=== PATIENT | male | born 1950 | race Caucasian/White ===

== ENCOUNTER 2025-02-01 12:40 | Emergency (ER) | payer MEDICARE, OTHER, SELFPAY ==
[2025-02-01] VITALS (7 sets, daily range): BP systolic 114–141; BP diastolic 81–93; PULSE 75–96; RESP 16–19; TEMP 36.8; O2SAT 97–99; BMI 27.5
--- NOTE | 2025-02-01 12:55 | EKG12_ITS ---
Test Reason : AFIB Blood Pressure : */* mmHG Vent. Rate : 91 BPM Atrial Rate : * BPM P-R Int : * ms QRS Dur : 74 ms QT Int : 324 ms P-R-T Axes : * 0 18 degrees QTcB Int : 398 ms Atrial fibrillation Low voltage QRS Abnormal ECG Confirmed by NORIS AYALA, PELON ([id number]), copy editor ANEL HANEY ([id number]) on 02/02/2025 1:07:56 PM Referred By: BB Confirmed By: PELON HAMM MD
--- NOTE | 2025-02-01 13:15 | RAD_ITS ---
PROCEDURE: CHEST PA AND LATERAL 02/01/2025 REASON FOR EXAM: CHEST PAIN TECHNIQUE: CHEST PA AND LATERAL COMPARISON: Chest x-ray 02/01/2025. FINDINGS: Hardware: Monitor electrodes overlie the chest. Heart: No cardiomegaly. Tortuosity and atherosclerotic calcifications of the aorta. Mediastinum: Unremarkable. Lungs: Clear. No pleural effusion or pneumothorax. Bones: No acute bony abnormalities. RAD/Chest PA and Lateral IMPRESSION: No acute cardiopulmonary abnormalities. Reading Location: [id number]
[2025-02-01] MEDS: 0.9% Normal Saline (1000mL) 1,000 ML 999 ML IV (13:17)
[2025-02-01 13:44] LABS: Hematocrit 39.9 % (40-54); Hemoglobin 13.2 g/dL (13.0-16.5); Immature Granulocytes Count 0.030 X10^3/uL (0.0-0.0); Mean Corp Hgb Conc 33.1 g/dL (32-36); Mean Corpuscular Volume 89.9 fL (80-94); Mean Platelet Vol. 9.6 fl (6.2-12.0); NRBC Flagged by Analyzer 0 % (0-5); Platelet Count 209 K/mm3 (150-450); RBC Distribution Width CV 13.6 % (11.6-14.6); RBC Distribution Width SD 44.8 fl (35.1-43.9); Red Blood Count 4.44 M/mm3 (4.6-6.2); White Blood Count 7.8 K/mm3 (4.4-11.0)
--- NOTE | 2025-02-01 13:48 | ED.VIS.CHEST ---
HPI History of Present Illness Chief Complaint: Palpitations Narrative Narrative: Patient is a 74-year-old male past medical history hypertension, Alzheimer's dementia who presents to the emergency department concern for atrial fibrillation. According to the significant other bedside she notes that yesterday his watch notified him that he had a episode of atrial fibrillation twice and notes that this happened again today. She notes that his heart rate went to max 140 beats per minutes. Patient states that he has not any complaints or symptoms at this point time. She states that he recently went to a music camp in [place] and notes that a few individuals came down with COVID at that. She notes that they took few breaks along the way to admission back. They did not deny any history of blood clots. [facility] Medical History Alzheimer dementia HTN (hypertension) Home Medications ?Medication ?Instructions ?Recorded ?Last Taken ?Type apixaban 5 mg tablet (Eliquis) 5 mg PO BID #60 tabs 02/01/25 Unknown Rx metoprolol tartrate 25 mg tablet 25 mg PO BID #60 tabs 02/01/25 Unknown Rx Allergy/AdvReac Type Severity Reaction Status Date / Time No Known Allergies Allergy Verified 02/01/25 13:17 Social History Smoking Status: Never smoker ROS ROS ED ROS Narrative Constitutional: Denies any fevers or chills Eyes: Denies double vision Cardiovascular: No chest pain or palpitations Respiratory: Denies coughing wheezing shortness of breath Abdomen: Denies abdominal pain nausea vomit diarrhea : Denies urinary symptoms Neurological: Denies any numbness, weakness, tingling Musculoskeletal: Denies back pain Skin: Denies any rashes or lesions EXAM Physical Exam Narrative Exam Narrative: General: Patient lying in bed resting comfortably does not appear to be in acute distress Head: Atraumatic, normocephalic Eyes: PERRL bilaterally, EOMI bilaterally, no conjunctival injection noted Neck: Soft and supple, trachea midline Cardiovascular: Patient has any irregular irregular rhythm with a regular rate Respiratory: Clear to auscultation bilaterally Abdomen: No tenderness to palpation Extremities: +5/5 strength noted in the bilateral upper and lower extremities, radial pulses +2/4 in bilateral extremities Neurological: Patient follow commands knew that he was at [facility] years 2024 Skin: Warm, dry, intact no rashes or lesions noted Const Vital Signs: 02/01/25 12:43 02/01/25 13:10 02/01/25 13:58 Temperature 98.2 F Temperature Source Oral Pulse Rate 96 83 Respiratory Rate 16 19 H Blood Pressure 118/81 H 114/88 H Blood Pressure Mean 93 96 Pulse Ox 98 99 Oxygen Delivery Method Room Air Room Air Room Air 02/01/25 14:00 02/01/25 15:00 02/01/25 16:00 Temperature Temperature Source Pulse Rate 77 75 86 Respiratory Rate 16 16 17 Blood Pressure 133/93 H 119/87 H Blood Pressure Mean 106 97 Pulse Ox 97 99 99 Oxygen Delivery Method 02/01/25 17:00 Temperature Temperature Source Pulse Rate 96 Respiratory Rate 18 Blood Pressure 129/89 H Blood Pressure Mean 102 Pulse Ox 98 Oxygen Delivery Method Room Air MDM MDM MDM Narrative Medical decision making narrative: Patient is a 74-year-old male who presented to the emergency department chief complaint of atrial fibrillation. On the differential diagnosis includes but not limited to atrial flutter, atrial fibrillation, electrolyte normality, PE, ACS. Once workup is obtained reviewed he will be reevaluated Patient CBC reviewed showed no evidence leukocytosis white blood count was noted to be 7.8, hemoglobin was 13.2, platelet count was 209. Patient INR 0.9, PT of 12.8. Patient sodium is 139, potassium normal at 4.8, creatinine was noted to be 1.23. Patient glucose of 114, troponin was 17 and 16 respectively. Patient's EKG reviewed showed atrial fibrillation with controlled rate of 91 bpm. Patient TSH normal at 1.82, free T4 and T3 normal at 1.10 and 2.5 respectively. Patient D-dimer normal at 0.27. Patient's chest x-ray reviewed showed no acute cardiopulmonary processes. This reviewed by myself by radiology. Did discuss case with on-call oracle database manager Dr. Espinoza who states that the patient can be placed on 25 mg of metoprolol twice a day and be placed on Eliquis and follow-up in the outpatient setting. I discussed this plan with the patient and significant other bedside they are agreeable with this plan. They are advised that he falls and hits his head while on this blood thinning medication he needs to go to the nearest emergency department immediately as there is a chance that he can develop a head bleed. With significant other bedside did note that they did some further looking at his [employer] and notes that he has had episodes intermittently throughout the week. I answered all questions at bedside and they like to go at this point in time all question concerns answered they were discharged home in stable condition. They did note that the pharmacy will be closed in [place] and we are currently not doing meds to beds therefore he was given his first dose of Eliquis here in the emergency department as well as the metoprolol and the prescription was sent to the pharmacy. Lab Data Labs: Laboratory Results - last 24 hr 02/01/25 02/01/25 13:05 15:05 WBC 7.8 RBC 4.44 L Hgb 13.2 Hct 39.9 L MCV 89.9 MCH 29.7 MCHC 33.1 RDW Std Deviation 44.8 H RDW Coeff of Danita 13.6 Plt Count 209 MPV 9.6 Immature Gran % (Auto) 0.400 Neut % (Auto) 69.4 Lymph % (Auto) 22.4 Thurston % (Auto) 6.9 Eos % (Auto) 0.5 Baso % (Auto) 0.4 Absolute Neuts (auto) 5.4 Absolute Lymphs (auto) 1.74 Nucleated RBC % 0 PT 12.8 INR 0.9 APTT 25.4 D-Dimer Quant (PE/DVT) 0.27 Sodium 139 Potassium 4.8 Chloride 104 Carbon Dioxide 23.5 Anion Gap 11 BUN 21 H Creatinine 1.23 H Estim Creat Clear Calc 53.58 Est GFR (MDRD) Non-Af 61 BUN/Creatinine Ratio 17.4 Glucose 114 H Calcium 8.8 Magnesium 2.3 H Troponin T High Sens 17 Troponin T Hi Sens 2 Hr 16 NT pro BNP II 452 TSH 1.820 Free T4 1.10 Free T3 pg/dL 2.5 Radiography Diagnostic Testing: Clinical Impression(s) from Imaging Studies Chest X-Ray 02/01/25 13:15 IMPRESSION: No acute cardiopulmonary abnormalities. Reading Location: [facility] Discharge Plan Triage Chief Complaint: Palpitations ED Provider: Omar Carter Dx/Rx/DC Orders Clinical Impression: Atrial fibrillation, Alzheimer's dementia, Hypertension Prescriptions: New metoprolol tartrate 25 mg tablet 25 mg PO BID Qty: 60 0RF Eliquis 5 mg tablet 5 mg PO BID Qty: 60 0RF Primary Care Provider: Anna Teixeira Referrals: Zo Kendall MD [Med Staff - Credit And Collection Manager] - Sandra Espinoza MD [Med Staff - Active Staff] - Activity Restrictions/Additional Instructions: Take prescriptions as prescribed. You are given your first dose here in the emergency department this evening. Return with worsening symptoms or any other concerns. Follow-up your primary care physician and the oracle database manager that you referred to as well. Print Language: Tamazight Disposition Disposition: Home, Self Care
[2025-02-01 13:49] LABS: Anion Gap 11 (5-15); BUN 21 mg/dL (4-19); BUN/Creat Ratio 17.4 RATIO (10-20); Calcium,Total 8.8 mg/dL (7.6-11.0); Carbon Dioxide 23.5 mmol/L (21.0-32.0); Chloride 104 mmol/L (98-108); Estimated Creatinine Clearance 53.58 ml/min (50-250); Free T3 2.5 pg/mL (2.18-3.98); Glucose 114 mg/dL (70-99); Magnesium 2.3 mg/dL (1.5-2.2); Potassium 4.8 mmol/L (3.3-5.1); Pro- Brain NATRIURETIC PEPTIDE 452 pg/mL (<=1800); Troponin T High Sensitivity 17 ng/L (<=22)
--- OUTSIDE RECORDS SUMMARY | 2025-02-01 13:51 | XMS RPT_ITS | CCD ---
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.[employer] TILER, Radha Unavailable Christine Young PA-C Unavailable [phone] OLDER, RADHA Referring Unavailable GANTA, TESSY Primary Care Unavailable GANTA, TESSY Primary Care Unavailable GANTA, TESSY Attending Unavailable OLDER, RADHA Referring Unavailable GANTA, TESSY Primary Care Unavailable GANTA, TESSY Attending Unavailable GANTA, TESSY Primary Care Unavailable GANTA, TESSY Referring Unavailable GANTA, TESSY Primary Care Unavailable GANTA, TESSY Referring Unavailable GANTA, TESSY Primary Care Unavailable GANTA, TESSY Attending Unavailable GANTA, TESSY Primary Care Unavailable GANTA, TESSY Referring Unavailable SELF Referring Unavailable GANTA, TESSY Primary Care Unavailable GANTA, TESSY Attending Unavailable GANTA, TESSY Primary Care Unavailable GANTA, TESSY Referring Unavailable GANTA, TESSY Primary Care Unavailable GANTA, TESSY Referring Unavailable GANTA, TESSY Primary Care Unavailable OLDER, RADHA Referring Unavailable GANTA, TESSY Primary Care Unavailable OLDER, RADHA Attending Unavailable OLDER, RADHA Referring Unavailable GANTA, TESSY Primary Care Unavailable TESSY FIELDS Attending Unavailable [facility] Primary Care Unavailable ABBY DAMON Attending Unavailable TESSY FIELDS [facility]erring [facility] Unavailable Allergies Allergy Classification Reported Allergen(s) Allergy Type Date of Onset Reaction(s) Facility (20 sources) Latex; Translations: [LATEX] Drug Allergy Other: See Comments [facility] Work Phone: (9 sources) Seasonal allergy; Translations: [SEASONAL ALLERGIES] Allergy to substance Cough [facility] Medications Current Medications Medication Drug Class(es) Dates Sig (Normalized) Sig (Original) amLODIPine 5 mg oral tablet (8 sources) Dihydropyridine Calcium Channel Jose Luis Start: 12-24-2024 take 1 tablet by mouth once daily amLODIPine (NORVASC) 5 mg tablet Take 1 tablet by mouth once daily. 90 tablet 3 12/24/2024 Active Start: 10-20-2024 End: 12-22-2024 take 1 tablet by mouth once daily amLODIPine (NORVASC) 5 mg tablet Take 1 tablet by mouth once daily. 30 tablet 1 10/20/2024 12/22/2024 Discontinued Start: 09-26-2024 End: 10-20-2024 take 1 tablet by mouth once daily amLODIPine (NORVASC) 2.5 mg tablet Take 1 tablet by mouth once daily. 30 tablet 1 09/26/2024 10/20/2024 Discontinued amoxicillin 875 mg / clavulanate 125 mg oral tablet (3 sources) Penicillin-class Antibacterial Start: 12-16-2021 End: 12-23-2021 amoxicillin-clavulanic acid (AUGMENTIN) 875-125 mg per tablet Take 1 tablet by mouth twice daily for 7 days. FOR 7 DAYS. 14 tablet 0 12/16/2021 12/23/2021 Active Comment on above: Take 1 tablet by mouth twice daily for 7 days. FOR 7 DAYS. cephalexin 500 mg oral capsule (2 sources) Cephalosporin Antibacterial Start: 12-07-2021 End: 12-12-2021 take 1 capsule by mouth twice daily cephALEXin (KEFLEX) 500 mg capsule Indications: Onycholysis , Paronychia of great toe of left foot Take 1 capsule by mouth twice daily for 5 days. 10 capsule 0 12/07/2021 12/12/2021 Active Comment on above: Take 1 capsule by mouth twice daily for 5 days. lecithin 1200 mg oral capsule (20 sources) take 1 capsule by mouth once daily Lecithin 1,200 mg cap Take 1,200 mg by mouth once daily. Active losartan potassium 50 mg oral tablet (19 sources) Angiotensin 2 Receptor Jose Luis Start: 09-26-2024 End: 09-26-2024 take 1 tablet by mouth once daily losartan (COZAAR) 50 mg tablet Take 1 tablet by mouth once daily. 90 tablet 3 09/26/2024 Active Start: 07-24-2024 End: 09-26-2024 take 1 tablet by mouth once daily losartan (COZAAR) 100 mg tablet Indications: hypertension Take 1 tablet by mouth once daily. 90 tablet 3 07/31/2024 09/26/2024 Discontinued Start: 04-17-2024 End: 07-24-2024 take 1 tablet by mouth twice daily losartan (COZAAR) 25 mg tablet Indications: Essential hypertension Take 1 tablet by mouth two times a day. 60 tablet 3 04/17/2024 07/24/2024 Discontinued nirmatrelvir tablet 300 mg (150 mg x 2) and ritonavir tablet 100 mg in a dose pack (PAXLOVID) (3 sources) Start: 07-25-2023 End: 07-25-2023 nirmatrelvir tablet 300 mg ( 150 mg x 2) and ritonavir tablet 100 mg in a dose pack (PAXLOVID) Indications: Positive self-administered antigen test for COVID-19 Administer TWO pink nirmatrelvir 150 mg tablets and ONE white ritonavir 100 mg tablet for a total of three tablets twice daily. 30 tablet 0 07/25/2023 07/25/2023 Discontinued Start: 07-25-2023 End: 07-30-2023 nirmatrelvir tablet 300 mg ( 150 mg x 2) and ritonavir tablet 100 mg in a dose pack (PAXLOVID) Indications: Positive self-administered antigen test for COVID-19 Administer TWO pink nirmatrelvir 150 mg tablets and ONE white ritonavir 100 mg tablet for a total of three tablets twice daily. 30 tablet 0 07/25/2023 07/30/2023 Active Comment on above: Administer TWO pink nirmatrelvir 150 mg tablets and ONE white ritonavir 100 mg tablet for a total of three tablets twice daily. perflutren lipid microspheres 1.3 mL in NaCl (PF) 0.9% 10 mL injection (DEFINITY) (6 sources) Start: 11-15-2022 End: 02-14-2024 perflutren lipid microspheres 1.3 mL in NaCl (PF) 0.9% 10 mL injection (DEFINITY) 125 ml sodium chloride 9 mg/ml prefilled syringe (6 sources) Start: 11-15-2022 End: 02-14-2024 sodium chloride 0.9 % (flush) 10 mL (BD POSIFLUSH) Completed/Discontinued Medications Medication Drug Class(es) Dates Sig (Normalized) Sig (Original) carbamide peroxide 65 mg/ml otic solution (14 sources) Start: 07-20-2021 End: 11-15-2022 carbamide peroxide (DEBROX) 6.5 % otic solution Indications: Excessive ear wax, bilateral Use 5 Drops in both ears twice daily. 15 mL 1 07/20/2021 11/15/2022 Discontinued Comment on above: Use 5 Drops in both ears twice daily. mv-min/folic/K1/ly copen/lutein (CENTRUM SILVER MEN ORAL) (13 sources) End: 10-20-2024 mv-min/folic/K1/lyco pen/lutein (CENTRUM SILVER MEN ORAL) Take by mouth once daily. 10/20/2024 Discontinued mv-min/folic/K1/ lycopen/lutein (CENTRUM SILVER MEN ORAL) Take by mouth once daily. Active mv-min/folic/K1/ lycopen/lutein (CENTRUM SILVER MEN ORAL) Take by mouth. Active niacin 500 mg oral tablet (20 sources) Nicotinic Acid Start: 07-21-2010 End: 07-24-2024 take 1 tablet by mouth once daily niacin 500 mg ORAL tablet Take one(1) tablet daily. 0 07/21/2010 07/24/2024 Discontinued Comment on above: Take one(1) tablet d aily. rosuvastatin calcium 10 mg oral tablet (20 sources) HMG-CoA Reductase Inhibitor Start: 07-20-2021 End: 11-20-2024 take 1 tablet by mouth once daily rosuvastatin (CRESTOR) 10 mg tablet Take 1 tablet by mouth once daily. 90 tablet 3 07/24/2024 11/20/2024 Discontinued Comment on above: Take 1 tablet by regina th once daily. TAKE 1 TABLET BY REGINA TH EVERY DAY Problems Active Problems Problem Classification Problem Date Documented Da te Episodic/Chronic Cardiac dysrhythmias (3 sources) Palpitations; Translations: [Palpitations] Episodic Conditions associated with dizziness or vertigo (1 source) Lightheadedness; Translations: [Dizziness and giddiness] 08-31-2023 Episodic Deficiency and other anemia (20 sources) Anemia; Translations: [Anemia, unspecified] 07-21-2010 Episodic Delirium, dementia, and amnestic and other cognitive disorders (8 sources) Dementia; Translations: [Unspecified dementia without behavioral disturbance] Onset: 11-20-2024 08-31-2023 Chronic Disorders of lipid metabolism (20 sources) Mixed hyperlipidemia; Translations: [Mixed hyperlipidemia] Onset: 07-21-2010 07-21-2010 Chronic Essential hypertension (20 sources) Benign essential hypertension; Translations: [Essential (primary) hypertension] Onset: 07-21-2010 07-21-2010 Chronic Fluid and electrolyte disorders (8 sources) Hyperkalemia; Translations: [Hyperkalemia] Onset: 12-10-2024 07-24-2024 Episodic Malaise and fatigue (1 source) Fatigue; Translations: [Other fatigue] Episodic Open wounds of extremities (1 source) Open wound of toe; Translations: [Unspecified open wound of unspecified toe(s) without damage to nail, initial encounter] Episodic Other hereditary and degenerative nervous system conditions (3 sources) Impaired cognition; Translations: [Mild cognitive impairment, so stated] 03-19-2024 Chronic Other hereditary and degenerative nervous system conditions (1 source) Mild cognitive impairment, so stated; Translations: [Cognitive impairment, mild, so stated] Onset: 03-19-2024 Chronic Other inflammatory condition of skin (20 sources) Seborrheic dermatitis; Translations: [Seborrheic dermatitis, unspecified] 07-21-2010 Episodic Other nutritional; endocrine; and metabolic disorders (1 source) Weight decreased; Translations: [Abnormal weight loss] 11-20-2024 Episodic Other nutritional; endocrine; and metabolic disorders (1 source) Abnormal weight loss; Translations: [Weight loss] Onset: 11-20-2024 Episodic Other screening for suspected conditions (not mental disorders or infectious disease) (2 sources) Patient encounter status; Translations: [Encounter for screening for malignant neoplasm of prostate] Episodic Other skin disorders (1 source) Onycholysis; Translations: [Onycholysis] Episodic Other skin disorders (3 sources) Ingrowing toenail; Translations: [Ingrowing nail] Episodic Residual codes; unclassified (1 source) Family history of prostate cancer; Translations: [Family history of malignant neoplasm of prostate] Episodic Residual codes; unclassified (5 sources) Memory impairment; Translations: [Other amnesia] Episodic Skin and subcutaneous tissue infections (1 source) Paronychia of toe of left foot; Translations: [Cellulitis of left toe] Episodic Unclassified (2 sources) 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 Author Type: Occupational Therapist Type: [id number] Filed: 01/23/2025 07:53 Note Text: [facility] Occupational Therapy Plan of Care Certification Patient Name: Zain Vences : 1950 CC #: [id number] Date: 01/14/2025 To: Tessy Fields MD From Therapist: Abby Damon OT/David RE: Patient Certification/ Recertification Your review, approval and electronic signature are required in order to comply with Payor: MEDICARE / Plan: MEDICARE A AND B / Product Type: Medicare / regulations. 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 Due to the complex nature of the safe operation of a motor vehicle, and considering the demands of integrating changing environmental conditions, and visual, cognitive, and physical skills, successful completion of this program is not a guarantee of safe driving in the future. ASSESSMENT OF INSTRUMENTAL ADL AND COMMUNITY MOBILITY: Zain Vences presents with the diagnosis of moderate late onset Alzheimer's dementia. This patient presents with impairments of 'S CONCERNS RELATED TO DRIVING BEHAVIOR, SEVERE IMPAIRMENT WITH SHORT BLESSED COGNITIVE SCREEN WHILE DECREASED ORIENTATION/CONCENTRAT ION/RECALL MEMORY, DECREASED AUDITORY ATTENTION SKILLS, SIGNIFICANTLY SLOWED PERFORMANCE ON TRAILMAKING B FOR ALTERNATING ATTENTION SKILLS, SLOWED AVERAGE VISUAL PROCESSING SPEED ON VISUAL PERCEPTUAL SCREENING, CONCERNS RELATED TO PROBLEM SOLVING/JUDGEMENT/SAFE TY AWARENESS/INSIGHT, SLIGHTLY SLOWED AVERAGE SIMULATED BRAKE REACTION DISTANCE. RECOMMENDATIONS: ADL/IADL Recommendations: ongoing support and assist from , family, friends as has been provided; do recommend that he be with other responsible person when in public due to his vulnerability related to his cognitive deficits which his is in agreement with Driving Recommendations: REFRAIN FROM DRIVING WITH DRIVING CESSATION INDICATED AND DISCUSSED; THIS THERAPIST WILL PROVIDE PHYSICIAN WITH THE [facility] REPORTING INFORMATION SO THAT THE LICENSE SUSPENSION PROCESS CAN BE INITIATED Recommended Complete Eye Exam: Yes Planned Interventions, Frequency, and Duration: Current Frequency: Discontinue Therapy Services Duration: 1 visit Total Number of Visits Planned: 0 Patient demonstrates fair understanding of results which were discussed and agreed upon by patient/family. For further details regarding this patient refer to the Occupational Therapy electronically documented visit dated 01/14/2025. Provider Attestation I have reviewed the treatment plan for Zain Vences, CCF# [id number] for the period of 01/14/25 -- 01/30/25, established on 01/14/2025. Signature certifies the need for therapy services. 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 - losartan (COZAAR) 50 mg tablet Take 1 tablet by mouth once daily. - Lecithin 1,200 mg cap Take 1,200 mg by mouth once daily. Letter Text Normal [facility] Basic metabolic 2000 panelon 12-11-2024 Anion gap [Moles/Vol] 10 mmol/L 8 - 15 mmol/L [facility] Calcium [Mass/Vol] 9.3 mg/dL 8.5 - 10. 2 mg/dL [facility] Chloride [Moles/Vol] 104 mmol/L 98 - 10 7 mmol/L [facility] CO2 [Moles/Vol] 26 mmol/L 22 - 30 mmol/L [facility] Creatinine [Mass/Vol] 0.93 mg/dL 0.73 - 1.22 mg/dL [facility] GFR/1.73 sq M.predicted among non-blacks MDRD (S/P/Bld) [Vol rate/Area] 86 mL/min/{1.73_m2} - PINF [facility] Comment on above: Estimated Glomerular Filtration Rate (eGFR) is calculated using the 2020 CKD-EPI creatinine equation. This equation utilizes serum creatinine, sex, and age as parameters. The creatinine assay has traceable calibration to isotope dilution-mass spectrometry. Refer to KDIGO guidelines for clinical interpretation. In patients with unstable renal function, e.g. those with acute kidney injury, the eGFR may not accurately reflect actual GFR. Glucose [Mass/Vol] 84 mg/dL 74 - 99 mg/dL [facility] Comment on above: The [place] Diabete s Association (ADA) provides guidance for cutoff values for fasting glucose and random glucose. The ADA defines fasting as no caloric intake for at least 8 hours. Fasting plasma glucose results between 100 to 125 mg/dL indicate increased risk for diabetes (prediabetes). Fasting plasma glucose results greater than or equal to 126 mg/dL meet the criteria for diagnosis of diabetes. In the absence of unequivocal hyperglycemia, results should be confirmed by repeat testing. In a patient with classic symptoms of hyperglycemia or hyperglycemic crisis, random plasma glucose results greater than or equal to 200 mg/dL meet the criteria for diagnosis of diabetes. Reference: Standards of Medical Care in Diabetes 2016, [place] [employer] Association. Diabetes Care. 2016.39(Suppl 1). Interpretation and review of laboratory results Normal [facility] Potassium [Moles/Vol] 4.9 mmol/L 3.7 - 5.1 mmol/L [facility] Sodium [Moles/Vol] 140 mmol/L 136 - 144 mmol/L [facility] Urea nitrogen [Mass/Vol] 15 mg/dL 9 - 24 mg/dL [facility] Basic metabolic 2000 panelon 12-10-2024 Anion gap [Moles/Vol] 10 mmol/L Normal 8-15 [facility] Comment on above: Order Comment: Speci men Type: BLOOD SPECIMENOrdering Facility: [facility] Address: [address] [place] [address] Performed By: #### 2 4321-2 ####[facility] LABCLIA [id number] [place] [address] [place] Calcium [Mass/Vol] 9.3 mg/dL Normal 8.5-10.2 [facility] Comment on above: Order Comment: Speci men Type: BLOOD SPECIMENOrdering Facility: [facility] Address: [address] [place] [address] Performed By: #### 2 4321-2 ####[facility] LABCLIA [id number] [place] [id number] [place] Chloride [Moles/Vol] 104 mmol/L Normal 98-107 [facility] Comment on above: Order Comment: Speci men Type: BLOOD SPECIMENOrdering Facility: [facility] Address: [address] [place] [address] Performed By: #### 2 4321-2 ####[facility] LABCLIA [id number] [place] [address] [place] CO2 [Moles/Vol] 26 mmol/L Normal 22-30 [facility] Comment on above: Order Comment: Speci men Type: BLOOD SPECIMENOrdering Facility: [facility] Address: [address] [place] [address] Performed By: #### 2 4321-2 ####[facility] LABCL[facility] [id number] [place] [id number] [place] Creatinine [Mass/Vol] 0.93 mg/dL Normal 0.73-1.22 [facility] Comment on above: Order Comment: Speci men Type: BLOOD SPECIMENOrdering Facility: [facility] Address: [address] [place] [address] Performed By: #### 2 4321-2 ####[facility] LABCL[facility] [id number] [place] [id number] [place] Creatinine and Glomerular filtration rate.predicted panel (S/P/Bld) 86 mL/min/1.73m??? Normal >=60 [facility] Comment on above: Order Comment: Speci men Type: BLOOD SPECIMENOrdering Facility: [facility] Address: [address] [place] [address] Result Comment: Mary mated Glomerular Filtration Rate (eGFR) is calculated using the 2020 CKD-EPI creatinine equation. This equation utilizes serum creatinine, sex, and age as parameters. The creatinine assay has traceable calibration to isotope dilution-mass spectrometry. Refer to KDIGO guidelines for clinical interpretation. In patients with unstable renal function, e.g. those with acute kidney injury, the eGFR may not accurately reflect actual GFR. Performed By: #### 2 4321-2 ####[facility] [id number] [address] [address] [place] Glucose [Mass/Vol] 84 mg/dL Normal 74-99 [facility] Comment on above: Order Comment: Speci tyrell Type: BLOOD SPECIMENOrdering Facility: [facility] Address: [address] [place] [address] Result Comment: The [place] Diabetes Association (ADA) provides guidance for cutoff values for fasting glucose and random glucose. The ADA defines fasting as no caloric intake for at least 8 hours. Fasting plasma glucose results between 100 to 125 mg/dL indicate increased risk for diabetes (prediabetes). Fasting plasma glucose results greater than or equal to 126 mg/dL meet the criteria for diagnosis of diabetes. In the absence of unequivocal hyperglycemia, results should be confirmed by repeat testing. In a patient with classic symptoms of hyperglycemia or hyperglycemic crisis, random plasma glucose results greater than or equal to 200 mg/dL meet the criteria for diagnosis of diabetes. Reference: Standards of Medical Care in Diabetes 2016, [place] Diabetes Association. Diabetes Care. 2016.39(Suppl 1). Performed By: #### 2 4321-2 ####[facility]CL[facility] [id number] [address] [address] [place] Potassium [Moles/Vol] 4.9 mmol/L Normal 3.7-5.1 [facility] Comment on above: Order Comment: Arielle santillan Type: BLOOD SPECIMENOrdering Facility: [facility] Address: [address] [place] [address] Performed By: #### 2 4321-2 ####[facility] LABCLIA [id number] [facility] [address] [address] [place] Sodium [Moles/Vol] 140 mmol/L Normal 136-144 [facility] Comment on above: Order Comment: Speci men Type: BLOOD SPECIMENOrdering Facility: [facility] Address: [address] [place] [address] Performed By: #### 2 4321-2 ####[facility] LABIA [id number] [address] [place] Urea nitrogen [Mass/Vol] 15 mg/dL Normal 9-24 [facility] Comment on above: Order Comment: Speci men Type: BLOOD SPECIMENOrdering Facility: [facility] Address: [address] [place] [address] Performed By: #### 2 4321-2 ####[facility] [id number] [address] [facility] CNOVon 11-20-2024 CNOV Office Visit (SHAWNIWR ) ZAIN VENCES ([id number]) 1950 M Date Time Provider Department 11/20/24 11:00 AM TESSY FIELDS During your visit today, we recorded the following information about you: Pulse Respiration Blood pressure Weight 52/minute 16/minute 120/84 84.5 kg Tessy Fields MD 11/20/2024 11:52 AM Signed We discussed your dementia: - Your MOCA score today was 15/30, which is slightly lower than your previous score of 17/30. This indicates progression of your dementia. - You do not have Alzheimer's disease, but you do have dementia. This distinction does not change your current treatment or management plan. - Continue following a diet that supports brain health if it is helpful for you, but do not feel restricted if it is not improving your quality of life. Enjoy the foods you like, including chocolate in moderation. - We discussed your driving. To ensure safety, I recommend a driving evaluation at [place] or another center that offers this service. If you pass, it will confirm that it is safe for you to continue driving. We discussed your potassium levels and blood pressure: - Your potassium level remains slightly above normal, but this is not a significant concern at this time. You have historically had higher potassium levels, and this is likely normal for you. - Your blood pressure is well-controlled at 120/84 with your current medications. Continue taking your medications as prescribed. - I performed an EKG today to monitor for any changes related to your potassium levels. If there are any concerns, I will contact you. - Please continue to drink more water throughout the day to stay hydrated, as this is important for your overall health. We discussed your medications: - You are currently taking Norvasc (amlodipine) and losartan for blood pressure management. Continue these as prescribed. - You are no longer taking Crestor (rosuvastatin). I have removed this from your medication list. - You are managing your medications well with the weekly pillbox system. Continue this routine. We discussed your weight: - You have intentionally lost weight, going from 194 lbs to 186 lbs. This is a healthy weight, and I recommend maintaining your current weight without further loss. We discussed your overall health and activities: - You have not experienced any falls, chest pain, shortness of breath, or swelling in your legs. Continue your current level of activity, including gardening and light exercise. - You are managing daily tasks well, including laundry and pie bottomer. Continue these activities as they are beneficial for your independence and well-being. Follow-up: - Complete the driving evaluation as discussed. - I will review your EKG results and contact you if there are any concerns. - Please continue monitoring your blood pressure and potassium levels as we have been doing. Let me know if you have any new concerns or questions. Tessy Fields MD 11/20/2024 5:07 PM Signed Reason for Visit Follow up HPI Zain Vences is a 74-year-old male with a history of dementia, hyperkalemia, and hypertension, accompanied by his , presenting for follow-up. Zain's reports a decline in his MoCA score from 17 to 15. He denies having Alzheimer's disease, attributing his cognitive issues to dementia. He continues to drive regularly without significant incidents, though his expresses concerns about his safety. He remains active, engaging in music and gardening, and performs household tasks such as laundry and cleaning. 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 His handles finances and medication management. He has been taking losartan and amlodipine for hypertension, with stable readings around 120/84 mmHg. Despite dietary adjustments to reduce potassium intake, his hyperkalemia persists. He denies chest pain, dyspnea, or leg swelling during exercise. He has lost weight intentionally through dietary changes, including apple cider vinegar, and denies incontinence, recent falls, or accidents. He reports no changes in vision, hearing, or behavior, and denies anger or upset feelings. He experiences occasional muscle pain from exercise, which has improved. Social History Tobacco Use Smoking status: Never Smokeless tobacco: Never Substance Use Topics Alcohol use: Not Currently Comment: Once every once in a while Drug use: No Past medical history, appointments, medications, allergies reviewed. Pertinent Lab/Diagnostic Studies are reviewed and discussed today Current Outpatient Medications: amLODIPine (NORVASC) 5 mg tablet losartan (COZAAR) 50 mg tablet Lecithin 1,200 mg cap Health Maintenance Depression Screening Anxiety Screening Hepatitis C Screening Pneumococcal Vaccine: 50+(2 of 2 - PCV) DTaP,Tdap,Td Vacci (more content not included)... Normal [facility] ECG COMPLETEon 11-20-2024 ECG COMPLETE Ventricular Rate : 5 2 BPM Atrial Rate : 52 BPM P-R Interval : 198 ms QRS Duration : 86 ms Q-T Interval : 424 ms QTC Calculation(Bazett) : 394 ms Calculated P [place] : 18 degrees Calculated R [place] : -11 degrees Calculated T [place] : 20 degrees Suspect electrode reversal: V2 V3 ; interpretation assumes no reversal SINUS BRADYCARDIA LOW VOLTAGE QRS, CONSIDER PULMONARY DISEASE, PERICARDIAL EFFUSION, OR NORMAL VARIANT CANNOT EXCLUDE ANTERIOR MYOCARDIAL INFARCTION , AGE UNDETERMINED ABNORMAL ECG Confirmed by MD ANGEL, QAKIRA ([id number]) on 11/24/2024 11:02:04 AM NAME : ZAIN VENCES PID : [id number] : 1950 Gender : Male Race : ORD : [id number] Procedure Date : Nov 20 2024 12:03:25 Edit Date : Nov 24 2024 11:02:08 Diagnosis: Suspect electrode reversal: V2 V3 ; interpretation assumes no reversal SINUS BRADYCARDIA LOW VOLTAGE QRS, CONSIDER PULMONARY DISEASE, PERICARDIAL EFFUSION, OR NORMAL VARIANT CANNOT EXCLUDE ANTERIOR MYOCARDIAL INFARCTION , AGE UNDETERMINED ABNORMAL ECG Confirmed by MD ORTIZ QARAB ([id number]) on 11/24/2024 11:02:04 AM Test Reason : E87.5 Hyperkalemia Location : 185 : [facility] Overread By : MD ORTIZ QARAB Edited By : MD ORTIZ QARAB Referred By : , Acquired by : Alistair Gamino [facility] Basic metabolic 2000 panelon 11-18-2024 Anion gap [Moles/Vol] 12 mmol/L Normal 8-15 [facility] Comment on above: Order Comment: Speci men Type: BLOOD SPECIMENOrdering Facility: [facility] Address: [address] [place] [address] Performed By: #### 2 4321-2 ####[facility] [id number] [place] [address] [place] Calcium [Mass/Vol] 9.6 mg/dL Normal 8.5-10.2 [facility] Comment on above: Order Comment: Speci men Type: BLOOD SPECIMENOrdering Facility: [facility] Address: [address] [place] [address] Performed By: #### 2 4321-2 ####[facility] [id number] [place] [address] [place] Chloride [Moles/Vol] 104 mmol/L Normal 98-107 [facility] Comment on above: Order Comment: Speci men Type: BLOOD SPECIMENOrdering Facility: [facility] Address: [address] [place] [address] Performed By: #### 2 4321-2 ####[facility] [id number] [place] [address] [place] CO2 [Moles/Vol] 24 mmol/L Normal 22-30 [facility] Comment on above: Order Comment: Speci men Type: BLOOD SPECIMENOrdering Facility: [facility] Address: [address] [place] [address] Performed By: #### 2 4321-2 ####[facility] [id number] [place] [address] [place] Creatinine [Mass/Vol] 0.93 mg/dL Normal 0.73-1.22 [facility] Comment on above: Order Comment: Speci men Type: BLOOD SPECIMENOrdering Facility: [facility] Address: [address] [place] [address] Performed By: #### 2 4321-2 ####[facility] [id number] [place] [address] [place] Creatinine and Glomerular filtration rate.predicted panel (S/P/Bld) 86 mL/min/1.73m??? Normal >=60 [facility] Comment on above: Order Comment: Speci men Type: BLOOD SPECIMENOrdering Facility: [facility] Address: [address] [place] [address] Result Comment: Mary mated Glomerular Filtration Rate (eGFR) is calculated using the 2020 CKD-EPI creatinine equation. This equation utilizes serum creatinine, sex, and age as parameters. The creatinine assay has traceable calibration to isotope dilution-mass spectrometry. Refer to KDIGO guidelines for clinical interpretation. In patients with unstable renal function, e.g. those with acute kidney injury, the eGFR may not accurately reflect actual GFR. Performed By: #### 2 4321-2 ####[facility] [id number] [place] [address] [place] Glucose [Mass/Vol] 104 mg/dL High 74-99 [facility] Comment on above: Order Comment: Speci men Type: BLOOD SPECIMENOrdering Facility: [facility] Address: [address] [place] [address] Result Comment: The [place] Diabetes Association (ADA) provides guidance for cutoff values for fasting glucose and random glucose. The ADA defines fasting as no caloric intake for at least 8 hours. Fasting plasma glucose results between 100 to 125 mg/dL indicate increased risk for diabetes (prediabetes). Fasting plasma glucose results greater than or equal to 126 mg/dL meet the criteria for diagnosis of diabetes. In the absence of unequivocal hyperglycemia, results should be confirmed by repeat testing. In a patient with classic symptoms of hyperglycemia or hyperglycemic crisis, random plasma glucose results greater than or equal to 200 mg/dL meet the criteria for diagnosis of diabetes. Reference: Standards of Medical Care in Diabetes 2016, [place] Diabetes Association. Diabetes Care. 2016.39(Suppl 1). Performed By: #### 2 4321-2 ####[facility] MILLWNCLIA [id number] [place] [address] [place] Potassium [Moles/Vol] 5.3 mmol/L High 3.7-5.1 [facility] Comment on above: Order Comment: Speci men Type: BLOOD SPECIMENOrdering Facility: [facility] Address: [address] [place] [address] Performed By: #### 2 4321-2 ####[facility] [id number] [place] [address] [place] Sodium [Moles/Vol] 140 mmol/L Normal 136-144 [facility] Comment on above: Order Comment: Serjioi men Type: BLOOD SPECIMENOrdering Facility: [facility] Address: [address] [place] [address] Performed By: #### 2 4321-2 ####[facility] [id number] [place] [address] [place] Urea nitrogen [Mass/Vol] 17 mg/dL Normal 9-24 [facility] Comment on above: Order Comment: Speci men Type: BLOOD SPECIMENOrdering Facility: [facility] Address: [address] [place] [address] Performed By: #### 2 4321-2 ####[facility] [id number] [place] [id number] [place] CNOVon 10-20-2024 CNOV Office Visit (INTMWS ) ZAIN VENCES ([id number]) 1950 M Date Time Provider Department 10/20/24 3:20 PM RADHA MORALES INTRAJANI During your visit today, we recorded the following information about you: Pulse Respiration Blood pressure Weight 57/minute 16/minute 134/78 86.2 kg Radha Morales APRN.[employer]ER 10/20/2024 4:13 PM Signed CC: Patient presents with: Recheck: BP follow up HPI Zain Vences is a 74 year old male who presents today for blood pressure follow up. Recording using [employer] software for draft documentation of the visit was discussed with the patient/authorized territory representative; all questions welcomed and answered. Patient/authorized territory representative agreed to proceed Hypertension: - Currently taking losartan 50 mg and amlodipine 2.5 mg. - Admits to inconsistent adherence to medication regimen. - Typically takes medication at night. - Denies chest pain, headaches, palpitations, edema, or dyspnea. Hyperkalemia: - Recent potassium level: 5.2 mEq/L. Has been improving with holding MVI and dietary changes. - Discontinued multivitamin containing potassium. - Has reduced intake of high-potassium foods. 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 - Reports a healthy diet. REVIEW OF SYSTEMS See HPI PAST MEDICAL HISTORY Diagnosis Date Anemia, unspecified Essential hypertension, benign Internal hemorrhoids without mention of complication Mixed hyperlipidemia Seborrheic dermatitis, unspecified PAST SURGICAL HISTORY Procedure Laterality Date COLONOSCOPY FLX DX W/COLLJ SPEC WHEN PFRMD 09/08/2010 COLONOSCOPY FLX DX W/COLLJ SPEC WHEN PFRMD 10/05/2020 ALLERGIES Latex MEDICATIONS amLODIPine (NORVASC) 5 mg tablet Take 1 tablet by mouth once daily. losartan (COZAAR) 50 mg tablet Take 1 tablet by mouth once daily. rosuvastatin (CRESTOR) 10 mg tablet Take 1 tablet by mouth once daily. Lecithin 1,200 mg cap Take 1,200 mg by mouth once daily. FAMILY HISTORY Problem Relation Age of Onset Breast Cancer Mother Heart disease Mother other (phelbitis) Father other (Pulmonary Embolism) Father other (multiple sclerosis) Sister Prostate Cancer Brother Social History Tobacco Use Smoking status: Never Smokeless tobacco: Never Substance Use Topics Alcohol use: Not Currently Comment: Once every once in a while Drug use: No PHYSICAL EXAM BP 134/78 Pulse (!) 57 Resp 16 Wt 86.2 kg (190 lb) SpO2 96% BMI 27.66 kg/m? General Appearance: well appearing, in no acute distress, alert Eyes: conjunctiva pink and moist, no icterus, sclera white, non-injected Lungs: Lungs clear to auscultation. No wheezing, rhonchi, rales. Heart: RRR without murmur, gallop, or rubs. No ectopy Health maintenance reviewed with patient: Depression Screening Never done Anxiety Screening Never done Hepatitis C Screening Never done Pneumococcal Vaccine: 50+(2 of 2 - PCV) due on 01/20/2016 DTaP,Tdap,Td Vaccine(4 - Td or Tdap) due on 01/15/2019 Advance Directive Discussion due on 06/11/2024 Covid-19 Vaccine( season) due on 08/31/2024 BP Controlled (<130/80) due on 07/23/2025 Annual PCP Team Chronic Disease Visit due on 10/20/2025 Diabetes Screening due on 10/17/2027 Lipid Screening due on 07/23/2029 Colorectal Cancer Screening due on 10/05/2030 Influenza Vaccine Completed RSV Vaccine Completed Shingrix Vaccine Completed DATA REVIEWED: Most recent labs Assessment/Plan 1. Essential hypertension, benign (I10) - Currently on losartan 50 mg and amlodipine 2.5 mg. - Non-adherence to medication regimen noted; medications will be monitored by spouse. - Increased amlodipine to 5 mg daily; prescription for 30 tablets sent to [facility] in [place]. - Decreased losartan to 25 mg daily; instructed to cut the 50 mg tablet in half. to manage - Advised to monitor blood pressure daily, ideally in the morning after using the bathroom and before consuming caffeine or engaging in activities. - Target blood pressure is consistently less than 130/80 mmHg. - Follow-up in 2-4 weeks to assess blood pressure control and medication tolerance. 2. Hyperkalemia (E87.5) - Current potassium level is 5.2 mmol/L (normal range: 3.5-5.1 mmol/L). - Discontinued multivitamin containing potassium. - Discussed that losartan can contribute to elevated potassium levels - Will re-evaluate potassium levels in 2-4 weeks; lab order placed for potassium and kidney function tests. - No dietary changes recommended at this time; continue current diet. - Follow-up appointment scheduled with Dr. Fields in 2-4 weeks to review lab results and adjust treatment as necessary. Prescription instructions reviewed with patient as applicable. Potential red flag symptoms discussed with the patient. Reviewed appropriate action plan to take if red flag symptoms (more content not included)... Normal [facility] Basic metabolic 2000 panelon 10-17-2024 Anion gap [Moles/Vol] 10 mmol/L 8 - 15 mmol/L [facility] Calcium [Mass/Vol] 9.5 mg/dL 8.5 - 10. 2 mg/dL [facility] Chloride [Moles/Vol] 103 mmol/L 98 - 10 7 mmol/L [facility] CO2 [Moles/Vol] 25 mmol/L 22 - 30 mmol/L [facility] Creatinine [Mass/Vol] 0.93 mg/dL 0.73 - 1.22 mg/dL [facility] GFR/1.73 sq M.predicted among non-blacks MDRD (S/P/Bld) [Vol rate/Area] 86 mL/min/{1.73_m2} - PINF [facility] Comment on above: Estimated Glomerular Filtration Rate (eGFR) is calculated using the 2020 CKD-EPI creatinine equation. This equation utilizes serum creatinine, sex, and age as parameters. The creatinine assay has traceable calibration to isotope dilution-mass spectrometry. Refer to KDIGO guidelines for clinical interpretation. In patients with unstable renal function, e.g. those with acute kidney injury, the eGFR may not accurately reflect actual GFR. Glucose [Mass/Vol] 82 mg/dL 74 - 99 mg/dL [facility] Comment on above: The [place] Diabete s Association (ADA) provides guidance for cutoff values for fasting glucose and random glucose. The ADA defines fasting as no caloric intake for at least 8 hours. Fasting plasma glucose results between 100 to 125 mg/dL indicate increased risk for diabetes (prediabetes). Fasting plasma glucose results greater than or equal to 126 mg/dL meet the criteria for diagnosis of diabetes. In the absence of unequivocal hyperglycemia, results should be confirmed by repeat testing. In a patient with classic symptoms of hyperglycemia or hyperglycemic crisis, random plasma glucose results greater than or equal to 200 mg/dL meet the criteria for diagnosis of diabetes. Reference: Standards of Medical Care in Diabetes 2016, [place] Diabetes Association. Diabetes Care. 2016.39(Suppl 1). Interpretation and review of laboratory results Abnormal [facility] Potassium [Moles/Vol] 5.2 mmol/L High 3.7 - 5.1 mmol/L [facility] Sodium [Moles/Vol] 138 mmol/L 136 - 144 mmol/L [facility] Urea nitrogen [Mass/Vol] 18 mg/dL 9 - 24 mg/dL [facility] Basic metabolic 2000 panelon 10-16-2024 Anion gap [Moles/Vol] 10 mmol/L Normal 8-15 [facility] Comment on above: Order Comment: Speci men Type: BLOOD SPECIMENOrdering Facility: [facility] Address: [address] [place] [address] Performed By: #### 2 4321-2 ####[facility] LABCLIA [id number] [place] [address] [place] Calcium [Mass/Vol] 9.5 mg/dL Normal 8.5-10.2 [facility] Comment on above: Order Comment: Speci men Type: BLOOD SPECIMENOrdering Facility: [facility] Address: [address] [place] [address] Performed By: #### 2 4321-2 ####[facility] LABCLIA [id number] [place] [address] [place] Chloride [Moles/Vol] 103 mmol/L Normal 98-107 [facility] Comment on above: Order Comment: Speci men Type: BLOOD SPECIMENOrdering Facility: [facility] Address: [address] [place] [address] Performed By: #### 2 4321-2 ####[facility] LABCLIA [id number] [facility] [address] [address] [place] CO2 [Moles/Vol] 25 mmol/L Normal 22-30 [facility] Comment on above: Order Comment: Speci men Type: BLOOD SPECIMENOrdering Facility: [facility] Address: [address] [place] [address] Performed By: #### 2 4321-2 ####[facility] LABCLIA [id number] [facility] [address] [address] [place] Creatinine [Mass/Vol] 0.93 mg/dL Normal 0.73-1.22 [facility] Comment on above: Order Comment: Speci men Type: BLOOD SPECIMENOrdering Facility: [facility] Address: [address] [place] [address] Performed By: #### 2 4321-2 ####[facility] LABIA [id number] [address] [place] Creatinine and Glomerular filtration rate.predicted panel (S/P/Bld) 86 mL/min/1.73m??? Normal >=60 [facility] Comment on above: Order Comment: Speci men Type: BLOOD SPECIMENOrdering Facility: [facility] Address: [address] [place] [address] Result Comment: Mary mated Glomerular Filtration Rate (eGFR) is calculated using the 2020 CKD-EPI creatinine equation. This equation utilizes serum creatinine, sex, and age as parameters. The creatinine assay has traceable calibration to isotope dilution-mass spectrometry. Refer to KDIGO guidelines for clinical interpretation. In patients with unstable renal function, e.g. those with acute kidney injury, the eGFR may not accurately reflect actual GFR. Performed By: #### 2 4321-2 ####[facility] LABCLIA [id number] [facility] [address] [address] [place] Glucose [Mass/Vol] 82 mg/dL Normal 74-99 [facility] Comment on above: Order Comment: Speci men Type: BLOOD SPECIMENOrdering Facility: [facility] Address: [address] [place] [id number] Result Comment: The [place] Diabetes Association (ADA) provides guidance for cutoff values for fasting glucose and random glucose. The ADA defines fasting as no caloric intake for at least 8 hours. Fasting plasma glucose results between 100 to 125 mg/dL indicate increased risk for diabetes (prediabetes). Fasting plasma glucose results greater than or equal to 126 mg/dL meet the criteria for diagnosis of diabetes. In the absence of unequivocal hyperglycemia, results should be confirmed by repeat testing. In a patient with classic symptoms of hyperglycemia or hyperglycemic crisis, random plasma glucose results greater than or equal to 200 mg/dL meet the criteria for diagnosis of diabetes. Reference: Standards of Medical Care in Diabetes 2016, [place] Diabetes Association. Diabetes Care. 2016.39(Suppl 1). Performed By: #### 2 4321-2 ####[facility] LABCLIA [id number] [place] [address] [place] Potassium [Moles/Vol] 5.2 mmol/L High 3.7-5.1 [facility] Comment on above: Order Comment: Speci men Type: BLOOD SPECIMENOrdering Facility: [facility] Address: [address] [place] [address] Performed By: #### 2 4321-2 ####[facility] LABCLIA [id number] [place] [id number] [place] Sodium [Moles/Vol] 138 mmol/L Normal 136-144 [facility] Comment on above: Order Comment: Speci men Type: BLOOD SPECIMENOrdering Facility: [facility] Address: [address] [place], [place] [id number] Performed By: #### 2 4321-2 ####[facility] LABCLIA [id number] [place] [id number] [place] Urea nitrogen [Mass/Vol] 18 mg/dL Normal 9-24 [facility] Comment on above: Order Comment: Speci men Type: BLOOD SPECIMENOrdering Facility: [facility] Address: [address] [place], [place] [id number] Performed By: #### 2 4321-2 ####[facility] KRISSY [id number] CLAUDIO HODGSON [id number] [place], [place] [id number] [facility] [place] Aliza 09-26-2024 CNPN Telephone (INTMWS) ZAIN VENCES ([id number]) 1950 M Date Time Provider Department 09/26/24 TESSY FIELDS INTMWS During your visit today, we recorded the following information about you: Judith Barakat, RICHIE 09/26/2024 10:23 AM Signed Patient phoned to let pcp know he is taking losartan 100 mg daily for a few months. Reports his potassium has been consistently high for a few months. Latest potassium was 5.4 yesterday. Patient asking if pcp can change his BP medicine to something else as this may be the cause. Please advise and phone pt with reply. [facility] in [place]. Tessy Fields MD 09/26/2024 11:04 AM Signed Let us decrease the losartan and add a small dose of norvasc. 2.5, recheck in 1 month Please let me know if this sounds good for you, will send norvasc if patient agrees About the potassium, yes it is high, but not too high, if I were you, I would not be worried but would work on above suggestion Regards, Maggie Sanders MD, MA 09/26/2024 11:31 AM Signed Patient agreeable, please send to [facility]. Radha Morales APRN.CHRISSY 09/26/2024 2:49 PM Signed Meds sent as recommended. Follow up in 4 weeks for BP evaluation. Thank you Radha Morales APRN.Loreta Reyna, RICHIE 09/26/2024 3:01 PM Signed Pt called and is notified of providers message and instructions. Pt voices understanding. Pt is going to call back when his is home to make the appointment. RICHIE Duncan Stephanie, RN 10/01/2024 11:45 AM Signed Patient's calls back and schedules appointment with Radha on 10/20/2024. is still concerned about patient's potassium level being high and that patient is on losartan potassium. Losartan potassium was cut in have to 50 mg however is still worried that this is too much potassium. Advised that patient can discuss this at appointment. asking If potassium levels can be checked again prior to appointment? Please review and advise, RICHIE Townsend Joy, APRN.[employer] 10/01/2024 6:42 PM Signed Check potassium 1-2 weeks after the decrease in losartan. Thank you Radha Morales APRN.[employer]ER Maggie Gtz MA 10/02/2024 8:23 AM Signed Left message for return call. Allergies As of Date: 09/26/2024 Noted Allergy Reaction LATEX 07/21/2010 14 - Other: See Comments Comments: burning on the face Date Reviewed: 07/24/2024 Reviewed by: Maria D Henriquez LPN - Fully Assessed Reason for Visit: Medication Problem [65] Primary Visit Diagnosis:Hyperkalemia [E87.5] Order(s):losartan (COZAAR) 50 mg tabletTake 1 tablet by mouth once daily.Disp: 90 tabletRfl: 3 amLODIPine (NORVASC) 2.5 mg tabletTake 1 tablet by mouth once daily.Disp: 30 tabletRfl: 1 BASIC METABOLIC PANEL [SQBMP] Order #: [id number] FUTURE Prescriptions as of 10/20/2024 - losartan (COZAAR) 50 mg tablet Take 1 tablet by mouth once daily. - amLODIPine (NORVASC) 2.5 mg tablet Take 1 tablet by mouth once daily. - rosuvastatin (CRESTOR) 10 mg tablet Take 1 tablet by mouth once daily. - Lecithin 1,200 mg cap Take 1,200 mg by mouth once daily. - mv-min/folic/K1/lycope n/lutein (CENTRUM SILVER MEN ORAL) Take by mouth once daily. Problem List As Of Date 09/26/2024 Noted Resolved Anemia, unspecified [D64.9] Essential hypertension, benign [I10] Mixed hyperlipidemia [E78.2] Seborrheic dermatitis, unspecified [L21.9] Prescriptions ordered this encounter Disp Refills Start End LOSARTAN 50 MG TABLET 90 t* 3 09/26/2024 09/26/2024 Class: Med Update Route: ORAL Sig: Take 1 tablet by mouth once daily. LOSARTAN 50 MG TABLET 90 t* 3 09/26/2024 Route: ORAL Sig: Take 1 tablet by mouth once daily. AMLODIPINE 2.5 MG TABLET 30 t* 1 09/26/2024 Route: ORAL Sig: Take 1 tablet by mouth once daily. Medications Discontinued During This Encounter Prescriptions - losartan (COZAAR) 100 mg tablet (Discontinued) Take 1 tablet by mouth once daily. - losartan (COZAAR) 50 mg tablet (Discontinued) Take 1 tablet by mouth once daily. Encounter Status:Closed by Judith BARAKAT on 10/20/24 Normal [facility] Basic metabolic 2000 panelon 09-25-2024 Anion gap [Moles/Vol] 11 mmol/L Normal 8-15 [facility] Comment on above: Order Comment: Speci men Type: BLOOD SPECIMENOrdering Facility: [facility] Address: [address] [place] [address] Performed By: #### 2 4321-2 ####[facility] [id number] [address] [address] [place] Calcium [Mass/Vol] 9.6 mg/dL Normal 8.5-10.2 [facility] Comment on above: Order Comment: Speci men Type: BLOOD SPECIMENOrdering Facility: [facility] Address: [address] [place] [address] Performed By: #### 2 4321-2 ####[facility] LABIA [id number] [place] [id number] [place] Chloride [Moles/Vol] 104 mmol/L Normal 98-107 [facility] Comment on above: Order Comment: Speci men Type: BLOOD SPECIMENOrdering Facility: [facility] Address: [address] [place] [address] Performed By: #### 2 4321-2 ####[facility] LABCLIA [id number] [place] [id number] [place] CO2 [Moles/Vol] 26 mmol/L Normal 22-30 [facility] Comment on above: Order Comment: Speci men Type: BLOOD SPECIMENOrdering Facility: [facility] Address: [address] [place] [address] Performed By: #### 2 4321-2 ####[facility] LABCLIA [id number] [place] [address] [place] Creatinine [Mass/Vol] 0.85 mg/dL Normal 0.73-1.22 [facility] Comment on above: Order Comment: Speci men Type: BLOOD SPECIMENOrdering Facility: [facility] Address: [address] [place] [address] Performed By: #### 2 4321-2 ####[facility] [id number] [place] [address] [place] Creatinine and Glomerular filtration rate.predicted panel (S/P/Bld) 91 mL/min/1.73m??? Normal >=60 [facility] Comment on above: Order Comment: Speci men Type: BLOOD SPECIMENOrdering Facility: [facility] Address: [address] [place] [address] Result Comment: Mary mated Glomerular Filtration Rate (eGFR) is calculated using the 2020 CKD-EPI creatinine equation. This equation utilizes serum creatinine, sex, and age as parameters. The creatinine assay has traceable calibration to isotope dilution-mass spectrometry. Refer to KDIGO guidelines for clinical interpretation. In patients with unstable renal function, e.g. those with acute kidney injury, the eGFR may not accurately reflect actual GFR. Performed By: #### 2 4321-2 ####[facility] LABCL[facility] [id number] [address] [address] [place] Glucose [Mass/Vol] 101 mg/dL High 74-99 [facility] Comment on above: Order Comment: Speci men Type: BLOOD SPECIMENOrdering Facility: [facility] Address: [address] [place] [address] Result Comment: The [place] [employer] Association (ADA) provides guidance for cutoff values for fasting glucose and random glucose. The ADA defines fasting as no caloric intake for at least 8 hours. Fasting plasma glucose results between 100 to 125 mg/dL indicate increased risk for diabetes (prediabetes). Fasting plasma glucose results greater than or equal to 126 mg/dL meet the criteria for diagnosis of diabetes. In the absence of unequivocal hyperglycemia, results should be confirmed by repeat testing. In a patient with classic symptoms of hyperglycemia or hyperglycemic crisis, random plasma glucose results greater than or equal to 200 mg/dL meet the criteria for diagnosis of diabetes. Reference: Standards of Medical Care in Diabetes 2016, [place] [employer]. Diabetes Care. 2016.39(Suppl 1). Performed By: #### 2 4321-2 ####[facility] LABCL[facility] [id number] [place] [address] [place] Potassium [Moles/Vol] 5.4 mmol/L High 3.7-5.1 [facility] Comment on above: Order Comment: Speci men Type: BLOOD SPECIMENOrdering Facility: [facility] Address: [address] [place], [place] [address] Performed By: #### 2 4321-2 ####[facility] LABCL[facility] [id number] [address] [address] [place] Sodium [Moles/Vol] 141 mmol/L Normal 136-144 [facility] Comment on above: Order Comment: Speci men Type: BLOOD SPECIMENOrdering Facility: [facility] Address: [address] [place] [address] Performed By: #### 2 4321-2 ####[facility]CL[facility] [id number] [address] [address] [place] Urea nitrogen [Mass/Vol] 15 mg/dL Normal 9-24 [facility] Comment on above: Order Comment: Speci men Type: BLOOD SPECIMENOrdering Facility: [facility] Address: [address] [place] [address] Performed By: #### 2 4321-2 ####[facility] KRISSY [id number] [place] [address] [place] CNPJoan 08-25-2024 CNPN Telephone (INTMWS) ZAIN VENCES ([id number]) 1950 M Date Time Provider Department 08/25/24 TESSY FIELDS INTWS During your visit today, we recorded the following information about you: Emily Macdonald MA 08/25/2024 11:27 AM Signed ----- Message from Tessy Fields MD sent at 08/21/2024 4:32 PM EDT ----- I am not sure why his potassium is on the higher side but it is mildly elevated. I think losartan which is a new medication for him could do that Please confirm if he is taking the medication and his bp is doing better. If so them we may have to stop the medication Also are there any supplement of potassium that he is taking? Regards, Emily Pillai MD, MA 08/25/2024 11:27 AM Signed 08/22/24 2:20 PM Note Left message to return call. Blanche Eldridge LPN Haumesser, Brittany L, MA 08/25/2024 11:27 AM Signed 08/22/24 3:00 PM Note Pt called and is notified of providers results and instructions. Pt voices understanding. Pt states he has been taking the Losartan since 04/17/24, but he was taking 25 mg BID and at his last appointment he was increased to 100 mg daily ay HS. Pt also takes Centrum Silver and it has 80 mg K+. I let Pt know provider would call and let him know if she wants him to hold Losartan or Multi-vitamin. BP am 3/48958/80 08/8133/83 08/4139/83 08/3123/81 Pts is going to see if she can upload the rest of the Pts BPs to [employer]. She states she can send them to an e-mail. Please call and advise. RICHIE Duncan Chitra, MD 08/25/2024 1:23 PM Signed Hold the MVI please, not the potassium, recheck in a months time. Half the bp readings are good. Tessy Looney MD, Amanda, RN 08/25/2024 1:54 PM Signed Pt called and is notified of providers message and instructions. Pt voices understanding. Told the Pt not to hold the Losartan potassium. Making sure this is correct as the provider put to not hold the potassium. RICHIE Duncan Chitra, MD 08/25/2024 5:38 PM Signed Apologies. Yes, I want him to take the losartan and not the MVI Tessy Looney MD, Amanda, RN 08/25/2024 6:32 PM Signed This is what was told to patient wanted to make sure it was correct. Allergies As of Date: 08/25/2024 Noted Allergy Reaction LATEX 07/21/2010 14 - Other: See Comments Comments: burning on the face Date Reviewed: 07/24/2024 Reviewed by: Maria D Henriquez LPN - Fully Assessed Reason for Visit: Results [95] Primary Visit Diagnosis:Hyperkalemia [E87.5] Order(s):BASIC METABOLIC PANEL [SQBMP] Order #: [id number] FUTURE Prescriptions as of 08/25/2024 - losartan (COZAAR) 100 mg tablet Take 1 tablet by mouth once daily. - rosuvastatin (CRESTOR) 10 mg tablet Take 1 tablet by mouth once daily. - Lecithin 1,200 mg cap Take 1,200 mg by mouth once daily. - mv-min/folic/K1/lycope n/lutein (CENTRUM SILVER MEN ORAL) Take by mouth once daily. Problem List As Of Date 08/25/2024 Noted Resolved Anemia, unspecified [D64.9] Essential hypertension, benign [I10] Mixed hyperlipidemia [E78.2] Seborrheic dermatitis, unspecified [L21.9] Encounter Status:Closed by LORETA PAYNE on 08/25/24 Normal [facility] Basic metabolic 2000 panelon 08-20-2024 Anion gap [Moles/Vol] 9 mmol/L Normal 8-15 [facility] Comment on above: Order Comment: Speci men Type: BLOOD SPECIMENOrdering Facility: [facility] Address: [address] [place] [address] Performed By: #### 2 4321-2 ####[facility] LABCL[facility] [id number] [place] [address] [place] Calcium [Mass/Vol] 9.4 mg/dL Normal 8.5-10.2 [facility] Comment on above: Order Comment: Speci men Type: BLOOD SPECIMENOrdering Facility: [facility] Address: [address] [place] [address] Performed By: #### 2 4321-2 ####[facility] LABCL[facility] [id number] [place] [id number] [place] Chloride [Moles/Vol] 105 mmol/L Normal 98-107 [facility] Comment on above: Order Comment: Speci men Type: BLOOD SPECIMENOrdering Facility: [facility] Address: [address] [place] [address] Performed By: #### 2 4321-2 ####[facility] LABCLIA [id number] [place] [id number] [place] CO2 [Moles/Vol] 27 mmol/L Normal 22-30 [facility] Comment on above: Order Comment: Speci men Type: BLOOD SPECIMENOrdering Facility: [facility] Address: [address] [place] [address] Performed By: #### 2 4321-2 ####[facility]CL[facility] [id number] [place] [id number] [place] Creatinine [Mass/Vol] 0.97 mg/dL Normal 0.73-1.22 [facility] Comment on above: Order Comment: Arielle santillan Type: BLOOD SPECIMENOrdering Facility: [facility] Address: [address] [place] [address] Performed By: #### 2 4321-2 ####[facility]CL[facility] [id number] [address] [facility] Creatinine and Glomerular filtration rate.predicted panel (S/P/Bld) 81 mL/min/1.73m??? Normal >=60 [facility] Comment on above: Order Comment: Arielle santillan Type: BLOOD SPECIMENOrdering Facility: [facility] Address: [address] [place] [address] Result Comment: Mary mated Glomerular Filtration Rate (eGFR) is calculated using the 2020 CKD-EPI creatinine equation. This equation utilizes serum creatinine, sex, and age as parameters. The creatinine assay has traceable calibration to isotope dilution-mass spectrometry. Refer to KDIGO guidelines for clinical interpretation. In patients with unstable renal function, e.g. those with acute kidney injury, the eGFR may not accurately reflect actual GFR. Performed By: #### 2 4321-2 ####[facility] LABCL[facility] [id number] [place] [address] [place] Glucose [Mass/Vol] 95 mg/dL Normal 74-99 [facility] Comment on above: Order Comment: Arielle santillan Type: BLOOD SPECIMENOrdering Facility: [facility] Address: [address] [place] [address] Result Comment: The [place] Diabetes [employer] (ADA) provides guidance for cutoff values for fasting glucose and random glucose. The ADA defines fasting as no caloric intake for at least 8 hours. Fasting plasma glucose results between 100 to 125 mg/dL indicate increased risk for diabetes (prediabetes). Fasting plasma glucose results greater than or equal to 126 mg/dL meet the criteria for diagnosis of diabetes. In the absence of unequivocal hyperglycemia, results should be confirmed by repeat testing. In a patient with classic symptoms of hyperglycemia or hyperglycemic crisis, random plasma glucose results greater than or equal to 200 mg/dL meet the criteria for diagnosis of diabetes. Reference: Standards of Medical Care in Diabetes 2016, [place] [employer]. Diabetes Care. 2016.39(Suppl 1). Performed By: #### 2 4321-2 ####[facility] [id number] [place] [address] [place] Potassium [Moles/Vol] 5.5 mmol/L High 3.7-5.1 [facility] Comment on above: Order Comment: Serjioi men Type: BLOOD SPECIMENOrdering Facility: [facility] Address: [address] [place] [address] Performed By: #### 2 4321-2 ####[facility] [id number] [place] [address] [place] Sodium [Moles/Vol] 141 mmol/L Normal 136-144 [facility] Comment on above: Order Comment: Arielle santillan Type: BLOOD SPECIMENOrdering Facility: [facility] Address: [address] [place] [address] Performed By: #### 2 4321-2 ####[facility] [id number] [place] [address] [place] Urea nitrogen [Mass/Vol] 15 mg/dL Normal 9-24 [facility] Comment on above: Order Comment: Arielle santillan Type: BLOOD SPECIMENOrdering Facility: [facility] Address: [address] [place] [address] Performed By: #### 2 4321-2 ####[facility] [id number] [place] [id number] [place] CNOVon 07-24-2024 CNOV Office Visit (MASOUD ) ZAIN VENCES ([id number]) 1950 M Date Time Provider Department 07/24/24 11:00 AM TESSY FIELDS During your visit today, we recorded the following information about you: Pulse Blood pressure Weight Height 55/minute 142/78 88 kg 1.765 m Tessy Fields MD 07/24/2024 12:15 PM Signed Reason for Visit Patient presents with: Follow Up: 03/19/24 MOCA completed, 04/17/24 SEBASTIAN Zain Vences is a 74 year old male who presents here today for Geriatric follow up. HPI Patient has a pertinent PMHx significant for Hypertension , hyperlipidemia. Anemia. He has been having memory issues for few years. History of mother who developed dementia in her late 80s. As part of evaluation we did an MRI of the brain and his hippocampal volumes are in the 1st percentile compared to age. He also has a lot of mild white matter disease. After knowing his diagnosis, he was a little stressed but is coping pretty well. He has a little thing going on he has been doing some cognitive exercises. His blood pressure has been over 130 most days in the house. He did not get his log bp but does agree that he he needs medication for control of bp. He spent a lot of tome today to try to understand his diagnosis and seems extremely hopeful that there will be a cure in the future. He was referencing the Lacanumab type of medications. He is in moderate dementia and may not be an appropriate candidate for it. We discussed starting him on aricept he will think about it. 07/24/2024: since the last visit he he started exercising, notes that they made some Improvements to diet. Memory is a little better. Diet that they are using are pomegranate juice, yogurt., eating more fish than they can. They are doing treadmill for around 15 or 20 mins. Lifting up weights. Does machines for his legs. Does shoulders. Bp log shows 2/5 of readings are high but the rest are normal. He does need some reminders to take medications. B-ADLs: (I=independent,A=jesus tance,D=dependent) ?Bathing: I Dressing: I Toileting: I Transferring:I, Continence: I, Feeding: I, (Carlos Index): 6 I-ADLs: Ability to use phone: I, Shopping: A Cooking: A- but historically has never done it. Housekeeping: he has kept house. Laundry: he can do in own laundry Transportation: I Medications: A Handle Finances: I (Chamberino scale): 8 REVIEW OF SYSTEMS: Weight change/Appetite: monitoring weight, we discussed the need for weight stabilization. Hearing: no change Vision: no change Constipation, Diarrhea: no Incontinence: no Chest pain: No Edema: No Dyspnea: No Falls/injuries/acciden ts: No Health Maintenance Depression Screening Anxiety Screening Hepatitis C Screening BP Controlled (<130/80) Pneumococcal Vaccine: 65+(2 of 2 - PCV) DTaP,Tdap,Td Vaccine(4 - Td or Tdap) Advance Directive Discussion PAST MEDICAL HISTORY Diagnosis Date Anemia, unspecified Essential hypertension, benign Internal hemorrhoids without mention of complication Mixed hyperlipidemia Seborrheic dermatitis, unspecified Past medical history, appointments, medications, allergies reviewed. Pertinent Lab/Diagnostic Studies are reviewed and discussed today Current Outpatient Medications: losartan (COZAAR) 25 mg tablet rosuvastatin (CRESTOR) 10 mg tablet Lecithin 1,200 mg cap mv-min/folic/K1/lycope n/lutein (CENTRUM SILVER MEN ORAL) niacin 500 mg ORAL tablet Physical Exam BP 142/78 Pulse (!) 55 Ht 176.5 cm (5' 9.5) Wt 88 kg (194 lb) SpO2 96% BMI 28.24 kg/m? General appearance: Well appearing, alert, in no acute distress, well nourished. Skin: Skin color, texture, turgor normal, no suspicious rashes or lesions Head: Normocephalic, no masses, lesions, tenderness or abnormalities Eyes: Anicteric sclera. Pupils are equally round and reactive to light. Extraocular movements are intact. Lungs: Lungs clear to auscultation. No wheezing, rhonchi, rales Heart: RRR without murmur, gallop, or rubs. Extremities: No deformities, edema, skin discoloration, clubbing or cyanosis. Good capillary refill. ASSESSMENT/PLAN: 1. Mixed hyperlipidemia - ICD9: 272.2, ICD10: E78.2 (primary diagnosis) - Controlled - Counseled on healthy diet and regular exercise 2. Essential hypertension - ICD9: 401.9, ICD10: I10 - Controlled - Recommend home blood pressure monitoring, to bring results to next visit - Encouraged sodium restriction, DASH or Mediterranean diet - Recommend regular aerobic exercise 3. Mild late onset Alzheimer's dementia without behavioral disturbance, psychotic disturbance, mood disturbance, or anxiety (HCC) - ICD9: 331.0, 294.10, ICD10: G30.1, F02.A0 He is trying to eat mind diet and exercise. 4. Hyperkalemia - ICD9: 276.7, ICD10: E87.5 - BASIC METABOLIC PANEL Tessy Fields MD Referring Provider: SELF [200] Aller (more content not included)... Normal [facility] Comprehensive metabolic 2000 panelon 07-23-2024 Albumin [Mass/Vol] 4.5 g/dL Normal 3.9-4.9 [facility] Comment on above: Order Comment: Speci men Type: BLOOD SPECIMENOrdering Facility: [facility] Address: [address] [place] [address] Performed By: #### 2 4323-8, 45341-9 ####[facility] [id number] [place] [address] [place] ALP [Catalytic activity/Vol] 46 U/L Normal 38-113 [facility] Comment on above: Order Comment: Speci men Type: BLOOD SPECIMENOrdering Facility: [facility] Address: [address] [place] [address] Performed By: #### 2 4323-8, 64985-8 ####[facility] LABCL[facility] [id number] [place] [address] [place] ALT [Catalytic activity/Vol] 19 U/L Normal 10-54 [facility] Comment on above: Order Comment: Speci men Type: BLOOD SPECIMENOrdering Facility: [facility] Address: [address] [place] [address] Performed By: #### 2 4323-8, 61867-7 ####[facility]CL[facility] [id number] [place] [address] [place] Anion gap [Moles/Vol] 12 mmol/L Normal 8-15 [facility] Comment on above: Order Comment: Speci men Type: BLOOD SPECIMENOrdering Facility: [facility] Address: [address] [place] [address] Performed By: #### 2 4323-8, 60981-8 ####[facility]CL[facility] [id number] [place] [address] [place] AST [Catalytic activity/Vol] 23 U/L Normal 14-40 [facility] Comment on above: Order Comment: Speci men Type: BLOOD SPECIMENOrdering Facility: [facility] Address: [address] [place] [address] Performed By: #### 2 4323-8, 64044-0 ####[facility]CL[facility] [id number] [place] [address] [place] Bilirubin [Mass/Vol] 0.4 mg/dL Normal 0.2-1.3 [facility] Comment on above: Order Comment: Speci men Type: BLOOD SPECIMENOrdering Facility: [facility] Address: [address] [place] [address] Performed By: #### 2 4323-8, 30842-5 ####[facility] [id number] [place] [address] [place] Calcium [Mass/Vol] 9.6 mg/dL Normal 8.5-10.2 [facility] Comment on above: Order Comment: Speci men Type: BLOOD SPECIMENOrdering Facility: [facility] Address: [address] [place] [address] Performed By: #### 2 4323-8, 08317-7 ####[facility] [id number] [place] [address] [place] Chloride [Moles/Vol] 104 mmol/L Normal 98-107 [facility] Comment on above: Order Comment: Speci men Type: BLOOD SPECIMENOrdering Facility: [facility] Address: [address] [place] [address] Performed By: #### 2 4323-8, 12239-5 ####[facility] [id number] [place] [address] [place] CO2 [Moles/Vol] 24 mmol/L Normal 22-30 [facility] Comment on above: Order Comment: Speci men Type: BLOOD SPECIMENOrdering Facility: [facility] Address: [address] [place] [address] Performed By: #### 2 4323-8, 32697-3 ####[facility] [id number] [place] [address] [place] Creatinine [Mass/Vol] 0.94 mg/dL Normal 0.73-1.22 [facility] Comment on above: Order Comment: Speci men Type: BLOOD SPECIMENOrdering Facility: [facility] Address: [address] [place] [address] Performed By: #### 2 4323-8, 78422-1 ####[facility] [id number] [address] [place] Creatinine and Glomerular filtration rate.predicted panel (S/P/Bld) 85 mL/min/1.73m??? Normal >=60 [facility] Comment on above: Order Comment: Speci men Type: BLOOD SPECIMENOrdering Facility: [facility] Address: [address] [place] [address] Result Comment: Mary mated Glomerular Filtration Rate (eGFR) is calculated using the 2020 CKD-EPI creatinine equation. This equation utilizes serum creatinine, sex, and age as parameters. The creatinine assay has traceable calibration to isotope dilution-mass spectrometry. Refer to KDIGO guidelines for clinical interpretation. In patients with unstable renal function, e.g. those with acute kidney injury, the eGFR may not accurately reflect actual GFR. Performed By: #### 2 4323-8, 76784-8 ####[facility] [id number] [place] [id number] [place] Glucose [Mass/Vol] 96 mg/dL Normal 74-99 [facility] Comment on above: Order Comment: Speci men Type: BLOOD SPECIMENOrdering Facility: [facility] Address: [address] [place] [address] Result Comment: The [place] Diabetes Association (ADA) provides guidance for cutoff values for fasting glucose and random glucose. The ADA defines fasting as no caloric intake for at least 8 hours. Fasting plasma glucose results between 100 to 125 mg/dL indicate increased risk for diabetes (prediabetes). Fasting plasma glucose results greater than or equal to 126 mg/dL meet the criteria for diagnosis of diabetes. In the absence of unequivocal hyperglycemia, results should be confirmed by repeat testing. In a patient with classic symptoms of hyperglycemia or hyperglycemic crisis, random plasma glucose results greater than or equal to 200 mg/dL meet the criteria for diagnosis of diabetes. Reference: Standards of Medical Care in Diabetes 2016, [place] [employer]. Diabetes Care. 2016.39(Suppl 1). Performed By: #### 2 4323-8, 60194-6 ####[facility] [id number] [place] [address] [place] Potassium [Moles/Vol] 5.3 mmol/L High 3.7-5.1 [facility] Comment on above: Order Comment: Speci men Type: BLOOD SPECIMENOrdering Facility: [facility] Address: [address] [place] [address] Performed By: #### 2 4323-8, 34954-5 ####[facility]CL[facility] [id number] [place] [address] [place] Protein [Mass/Vol] 7.0 g/dL Normal 6.3-8.0 [facility] Comment on above: Order Comment: Speci men Type: BLOOD SPECIMENOrdering Facility: [facility] Address: [address] [place] [address] Performed By: #### 2 4323-8, 28957-3 ####[facility] [id number] [place] [address] [place] Sodium [Moles/Vol] 140 mmol/L Normal 136-144 [facility] Comment on above: Order Comment: Speci men Type: BLOOD SPECIMENOrdering Facility: [facility] Address: [address] [place] [address] Performed By: #### 2 4323-8, 77320-6 ####[facility] [id number] [place] [address] [place] Urea nitrogen [Mass/Vol] 15 mg/dL Normal 9-24 [facility] Comment on above: Order Comment: Speci men Type: BLOOD SPECIMENOrdering Facility: [facility] Address: [address] [place] [address] Performed By: #### 2 4323-8, 67842-2 ####[facility] [id number] [place] [address] [place] Lipid 1996 panelon 5 Cholesterol [Mass/Vol] 229 mg/dL High <200 [facility] Comment on above: Order Comment: Speci men Type: BLOOD SPECIMENOrdering Facility: [facility] Address: [address] [place] [address] Result Comment: <200 mg/dL, Desirable 200-239 mg/dL, Borderline high >239 mg/dL, High Performed By: #### 2 4323-8, 13561-1 ####[facility] [id number] [place] [address] [place] Cholesterol in HDL [Mass/Vol] 38 mg/dL Low >39 [facility] Comment on above: Order Comment: Speci men Type: BLOOD SPECIMENOrdering Facility: [facility] Address: [address] [place] [address] Result Comment: 40-5 9 mg/dL, Acceptable >59 mg/dL, High: Negative risk factor for coronary heart disease <40 mg/dL, Low: Positive risk factor for coronary heart disease Performed By: #### 2 4323-8, 17473-8 ####[facility] [id number] [place] [address] [place] Cholesterol in LDL [Mass/Vol] 167 mg/dL High <100 [facility] Comment on above: Order Comment: Speci men Type: BLOOD SPECIMENOrdering Facility: [facility] Address: [address] [place] [address] Result Comment: <100 mg/dL, Optimal 100-129 mg/dL, Near optimal/above optimal 130-159 mg/dL, Borderline high 160-189 mg/dL, High >189 mg/dL, Very high Secondary prevention optimal LDL Cholesterol levels are recommended to be < 70 mg/dL Performed By: #### 2 432-8, ####[facility] [id number] [place] [address] [place] Cholesterol in LDL/Cholesterol in HDL [Mass ratio] 4.39 {ratio} High <2.54 [facility] Comment on above: Order Comment: Speci men Type: BLOOD SPECIMENOrdering Facility: [facility] Address: [address] [place] [address] Result Comment: Micheal garner: 1. National Cholesterol Education Program ATP III Guideline At-A-Glance Quick Desk Reference: National Heart, Lung, and Blood [place]. National Institutes of Health. 2001: NIH Publication No. 01-3305. 2. An International Atherosclerosis Society position paper: global recommendations for the management of dyslipidemia: executive summary, Atherosclerosis. 2014: 232(2):410-413. Performed By: #### 2 4323-8, ####[facility] [id number] [place] [address] [place] Cholesterol in VLDL [Mass/Vol] 24 mg/dL Normal <30 [facility] Comment on above: Order Comment: Speci men Type: BLOOD SPECIMENOrdering Facility: [facility] Address: [address] [place] [address] Performed By: #### 2 4328, ####[facility] [id number] [place] [id number] [place] Cholesterol non HDL [Mass/Vol] 191 mg/dL High <130 [facility] Comment on above: Order Comment: Speci men Type: BLOOD SPECIMENOrdering Facility: [facility] Address: [address] [place] [address] Result Comment: <130 mg/dL, Optimal 130-159 mg/dL, Near optimal/above optimal 160-189 mg/dL, Borderline high 190-219 mg/dL, High >219 mg/dL, Very high Secondary prevention optimal non HDL Cholesterol levels are recommended to be <100 mg/dL Performed By: #### 2 4323-8, ####[facility] [id number] [place] [address] [place] Cholesterol.total/Ch olesterol in HDL [Mass ratio] 6.03 {ratio} High <5.10 [facility] Comment on above: Order Comment: Speci men Type: BLOOD SPECIMENOrdering Facility: [facility] Address: [address] [place] [address] Performed By: #### 2 4323-8, ####[facility] [id number] [place] [address] [place] FASTING TIME 12 hrs Normal [facility] Comment on above: Order Comment: Speci men Type: BLOOD SPECIMENOrdering Facility: [facility] Address: [address] [place] [address] Performed By: #### 2 4323-8, 02761-7 ####[facility] [id number] [place] [address] [place] Triglyceride [Mass/Vol] 121 mg/dL Normal <150 [facility] Comment on above: Order Comment: Speci men Type: BLOOD SPECIMENOrdering Facility: [facility] Address: [address] [place] [address] Result Comment: <150 mg/dL, Normal 150-199 mg/dL, Borderline high 200-499 mg/dL, High >499 mg/dL, Very high Performed By: #### 2 4323-8, 03942-5 ####[facility] [id number] [facility] [id number] [id number] [place] [facility] CNOVon 04-17-2024 CNOV Office Visit ([facility] ) RUZAIN SAWYER Linh ([id number]) 1950 M Date Time Provider Department 04/17/24 11:30 AM TESSY FIELDS During your visit today, we recorded the following information about you: Pulse Blood pressure Weight 65/minute 138/86 84.3 kg Tessy Fields MD 04/17/2024 1:08 PM Signed Reason for Visit Patient presents with: Recheck: Geriatric follow up Zain Ramirezton is a 74 year old male who presents here today for Geriatric follow up HPI Patient has a pertinent PMHx significant for Hypertension , hyperlipidemia. Anemia. He has been having memory issues for few years. History of mother who developed dementia in her late 80s. As part of evaluation we did an MRI of the brain and his hippocampal volumes are in the 1st percentile compared to age. He also has a lot of mild white matter disease. After knowing his diagnosis, he was a little stressed but is coping pretty well. He has a little thing going on he has been doing some cognitive exercises. His blood pressure has been over 130 most days in the house. He did not get his log bp but does agree that he he needs medication for control of bp. He spent a lot of tome today to try to understand his diagnosis and seems extremely hopeful that there will be a cure in the future. He was referencing the Lacanumab type of medications. He is in moderate dementia and may not be an appropriate candidate for it. We discussed starting him on aricept he will think about it. B-ADLs: (I=independent,A=jesus tance,D=dependent) ?Bathing: I Dressing: I Toileting: I Transferring:I, Continence: I, Feeding: I, (Carlos Index): 6 I-ADLs: Ability to use phone: I, Shopping: A Cooking: A- but historically has never done it. Housekeeping: he has kept house. Laundry: he can do in own laundry Transportation: I Medications: A Handle Finances: I (Aretha scale): 8 REVIEW OF SYSTEMS: Weight change/Appetite: monitoring weight, we discussed the need for weight stabilization. Hearing: no change Vision: no change Constipation, Diarrhea: no Incontinence: no Chest pain: No Edema: No Dyspnea: No Falls/injuries/acciden ts: No Health Maintenance Depression Screening Anxiety Screening Hepatitis C Screening BP Controlled (<130/80) Pneumococcal Vaccine: 65+(2 of 2 - PCV) DTaP,Tdap,Td Vaccine(4 - Td or Tdap) Advance Directive Discussion PAST MEDICAL HISTORY Diagnosis Date Anemia, unspecified Essential hypertension, benign Internal hemorrhoids without mention of complication Mixed hyperlipidemia Seborrheic dermatitis, unspecified Past medical history, appointments, medications, allergies reviewed. Pertinent Lab/Diagnostic Studies are reviewed and discussed today Current Outpatient Medications: Lecithin 1,200 mg cap mv-min/folic/K1/lycope n/lutein (CENTRUM SILVER MEN ORAL) niacin 500 mg ORAL tablet rosuvastatin (CRESTOR) 10 mg tablet Physical Exam BP 138/86 (BP Site: Left Arm) Pulse 65 Wt 84.3 kg (185 lb 13.6 oz) SpO2 99% BMI 27.05 kg/m? General appearance: Well appearing, alert, in no acute distress, well nourished. Skin: Skin color, texture, turgor normal, no suspicious rashes or lesions Head: Normocephalic, no masses, lesions, tenderness or abnormalities Eyes: Anicteric sclera. Pupils are equally round and reactive to light. Extraocular movements are intact. Lungs: Lungs clear to auscultation. No wheezing, rhonchi, rales Heart: RRR without murmur, gallop, or rubs. Extremities: No deformities, edema, skin discoloration, clubbing or cyanosis. Good capillary refill. ASSESSMENT/PLAN: 1. Essential hypertension - ICD9: 401.9, ICD10: I10 (primary diagnosis) - Controlled - Recommend home blood pressure monitoring, to bring results to next visit - Encouraged sodium restriction, DASH or Mediterranean diet - Recommend regular aerobic exercise - LOSARTAN 25 MG TABLET 2. Mild cognitive impairment - ICD9: 331.83, ICD10: G31.84. He spent a lot of tome today to try to understand his diagnosis and seems extremely hopeful that there will be a cure in the future. He was referencing the Lacanumab type of medications. He is in moderate dementia and may not be an appropriate candidate for it. We discussed starting him on aricept he will think about it. MD Donnie Morris Chitra, MD 04/17/2024 12:03 PM Signed Cognitive vitality Allergies As of Date: 04/17/2024 Noted Allergy Reaction LATEX 07/21/2010 14 - Other: See Comments Comments: burning on the face Date Reviewed: 04/17/2024 Reviewed by: Maria D Henriquez LPN - Fully Assessed Reason for Visit: Recheck [92] Cmt: Geriatric follow up Primary Visit Diagnosis:Essential hypertension [I10] Other Visit Diagnosis:Mild cognitive impairment [G31.84] Order(s):losartan (COZAAR) 25 mg tabletTake 1 tablet by mouth two times a day.Disp: 60 tabletRfl: 3 Prescriptio (more content not included)... Normal [facility] 04-03-2024 [facility] Telephone ([facility]) ZAIN VENCES ([id number]) 1950 M Date Time Provider Department 04/03/24 TESSY FIELDS During your visit today, we recorded the following information about you: Maria D Henriquez LPN 04/03/2024 2:43 PM Signed ----- Message from Tessy Fields MD sent at 04/02/2024 6:00 PM EDT ----- Zain, Your MRI unfortunately suggestive of Alzheimer's disease and at your follow-up appointment we will start you likely Namenda. Aricept is better but your heart rate is very low so if we decide to start that we had to really watch this very carefully. Regards, Tessy FlowersMaria D sosaPAMELA 04/03/2024 2:43 PM Signed Updated via afterBOT. Maria D BrentonPAMELA April 03, 2024 2:43 PM Allergies As of Date: 04/03/2024 Noted Allergy Reaction LATEX 07/21/2010 14 - Other: See Comments Comments: burning on the face Date Reviewed: 03/31/2024 Reviewed by: Sarwat Simons, RT(R) - Fully Assessed Prescriptions as of 04/03/2024 - rosuvastatin (CRESTOR) 10 mg tablet Take 1 tablet by mouth once daily. - Lecithin 1,200 mg cap Take by mouth. - mv-min/folic/K1/lycope n/lutein (CENTRUM SILVER MEN ORAL) Take by mouth. - niacin 500 mg ORAL tablet Take one(1) tablet daily. Problem List As Of Date 04/03/2024 Noted Resolved Anemia, unspecified [D64.9] Essential hypertension, benign [I10] Mixed hyperlipidemia [E78.2] Seborrheic dermatitis, unspecified [L21.9] Encounter Status:Closed by MARIA D HENRIQUEZ on 04/03/24 Normal [facility] MRI 3D POST PROCESSINGon MRI 3D POST PROCESSING * * *Final Report* * * DATE OF EXAM: Mar 31 2024 12:05PM DUM 0280 - MRI 3D POST PROCESSING / PROCEDURE REASON: COGNITIVE IMPAIRMENT * * * * Physician Interpretation * * * * RESULT: EXAMINATION: MRI BRAIN WO IVCON, MRI 3D POST PROCESSING HISTORY: Mild cognitive impairment TECHNIQUE: Axial fast FLAIR, T2, diffusion and susceptibility weighted imaging without contrast, using the ADNI dementia protocol and 3-D post-processing using the NeuroQuant software at an independent workstation with concurrent physician supervision and images were created, reviewed and archived. MQ: [id number] COMPARISON: Routine MRI brain 07/09/2023 RESULT: QUALITATIVE: Acute Intracranial Process: None. Chronic Intracranial Process: None. Age related white matter changes (ARWMC) rating: White matter lesions: 1 Basal ganglia lesions: 0 Prior intracranial hemorrhage: Parenchymal microhemorrhages: 0 Parenchymal macrohemorrhages: None Subarachnoid: None Macro-/subararchnoid hemorrhage description: N/A Qualitative brain and hippocampal volume: There is moderate cortical volume loss in view of the moderate enlargement of the cortical sulci. There is moderate central white matter volume loss in view of the moderate enlargement of the ventricular system. There is severe hippocampal volume loss relative to the parenchymal volume loss elsewhere based on visual inspection Amyloid Related Imaging Abnormalities (ARIA): Not Applicable Ventricles: Commensurate with volume loss. Brain Parenchymal Signal and Morphology: The brain parenchyma is otherwise within normal limits of signal and morphology. There is no evidence of an intracranial mass or extraaxial fluid collection. Other Significant Findings: None. QUANTITATIVE: Exam Quality: Good for volumetric analysis. Segmentation: Accurate segmentation by visual inspection Quantitative Data: Total Hippocampal Volume: Percentile for Similar Age: 3th Asymmetry Index: 4.75 Inferior Lateral Vent Volume: Percentile for similar age: 99th Asymmetry Index: -18.2 Temporal Lobe Volume: Temporal Lobe Percentile for Age: 1th Temporal Lobe Asymmetry Index: 30.4 Frontal Lobe Volume: Frontal Lobe Percentile for Age: 56th Frontal Lobe Asymmetry Index: 0.48 Parietal Lobe Volume: Parietal Lobe Percentile for Age: 38th Occipital Lobe Volume: Occipital Lobe Percentile for Age: 98th Whole Brain Volume: Brain Percentile for Age: 26th Concordance between qualitative and quantitative hippocampal volume assessment: Concordant. Change in brain volumes: No previous volumetric study for comparison Mean hippocampal volume loss among normal elderly: 0.7% per year, (-0.3 to 1.7; Olrando 2008; also Dominic 2010). IMPRESSION: * No evidence of an acute intracranial process or intracranial mass. * Moderate generalized volume loss. * Hippocampal volumes at the first percentile when compared to age matched normal controls by quantitative analysis. * Mild white matter disease which is nonspecific but likely reflective of chronic microvascular ischemia. * No evidence of parenchymal microhemorrhages by MRI. REFERENCES: White matter lesions 0 No lesions (including symmetrical, well-defined caps or bands) 1 Focal lesions 2 Beginning of confluence 3 Diffuse involvement of entire region Basal ganglia lesions 0 No lesions 1 1 focal lesion ( > 5 mm) 2 >1 focal lesion 3 Confluent lesions Dominic Garcia et al. The clinical use of structural MRI in Alzheimer disease. Nature Reviews Neurology 6;67 (2010). Orlando et al. Validation of a fully automated 3D hippocampal segmentation method using subjects with Alzheimer's disease mild cognitive impairment, and elderly controls. Neuroimage 43;59 (2008). Rosalie et al. A New Rating Scale for Age-Related White Matter Changes Applicable to MRI and CT. Stroke. 32:1318 (2001). * Asymmetry index defined as difference between left and right volumes divided by mean or [(L-R/Mean) x 100] (%). Age-matched reference charts measure total hippocampal volume (% of intracranial volume). See results from the analysis charts for details. Transcribe Date/Time: Apr 01 2024 8:21A Dictated by: VALERY BARILLAS MD This examination was interpreted and the report reviewed and electronically signed by: VALERY BARILLAS MD on Apr 01 2024 8:26AM EST Thank you for allowing us to participate in the care of your patient. Should there be any questions regarding this interpretation, please call . If you are unable to reach us at the number above, please feel free to contact [facility] at [phone]. [id number] Normal [facility] MRI BRAIN WO IVCONon 024 MRI BRAIN WO IVCON * * *Final Report* * * DATE OF EXAM: Mar 31 2024 12:05PM DUM 0294 - MRI BRAIN WO IVCON / PROCEDURE REASON: Mild Cognitive Impairment, W/ Neuroquant * * * * Physician Interpretation * * * * RESULT: EXAMINATION: MRI BRAIN WO IVCON, MRI 3D POST PROCESSING HISTORY: Mild cognitive impairment TECHNIQUE: Axial fast FLAIR, T2, diffusion and susceptibility weighted imaging without contrast, using the ADNI dementia protocol and 3-D post-processing using the NeuroQuant software at an independent workstation with concurrent physician supervision and images were created, reviewed and archived. MQ: [id number] COMPARISON: Routine MRI brain 07/09/2023 RESULT: QUALITATIVE: Acute Intracranial Process: None. Chronic Intracranial Process: None. Age related white matter changes (ARWMC) rating: White matter lesions: 1 Basal ganglia lesions: 0 Prior intracranial hemorrhage: Parenchymal microhemorrhages: 0 Parenchymal macrohemorrhages: None Subarachnoid: None Macro-/subararchnoid hemorrhage description: N/A Qualitative brain and hippocampal volume: There is moderate cortical volume loss in view of the moderate enlargement of the cortical sulci. There is moderate central white matter volume loss in view of the moderate enlargement of the ventricular system. There is severe hippocampal volume loss relative to the parenchymal volume loss elsewhere based on visual inspection Amyloid Related Imaging Abnormalities (ARIA): Not Applicable Ventricles: Commensurate with volume loss. Brain Parenchymal Signal and Morphology: The brain parenchyma is otherwise within normal limits of signal and morphology. There is no evidence of an intracranial mass or extraaxial fluid collection. Other Significant Findings: None. QUANTITATIVE: Exam Quality: Good for volumetric analysis. Segmentation: Accurate segmentation by visual inspection Quantitative Data: Total Hippocampal Volume: Percentile for Similar Age: 3th Asymmetry Index: 4.75 Inferior Lateral Vent Volume: Percentile for similar age: 99th Asymmetry Index: -18.2 Temporal Lobe Volume: Temporal Lobe Percentile for Age: 1th Temporal Lobe Asymmetry Index: 30.4 Frontal Lobe Volume: Frontal Lobe Percentile for Age: 56th Frontal Lobe Asymmetry Index: 0.48 Parietal Lobe Volume: Parietal Lobe Percentile for Age: 38th Occipital Lobe Volume: Occipital Lobe Percentile for Age: 98th Whole Brain Volume: Brain Percentile for Age: 26th Concordance between qualitative and quantitative hippocampal volume assessment: Concordant. Change in brain volumes: No previous volumetric study for comparison Mean hippocampal volume loss among normal elderly: 0.7% per year, (-0.3 to 1.7; Olrando 2008; also Dominic 2010). IMPRESSION: * No evidence of an acute intracranial process or intracranial mass. * Moderate generalized volume loss. * Hippocampal volumes at the first percentile when compared to age matched normal controls by quantitative analysis. * Mild white matter disease which is nonspecific but likely reflective of chronic microvascular ischemia. * No evidence of parenchymal microhemorrhages by MRI. REFERENCES: White matter lesions 0 No lesions (including symmetrical, well-defined caps or bands) 1 Focal lesions 2 Beginning of confluence 3 Diffuse involvement of entire region Basal ganglia lesions 0 No lesions 1 1 focal lesion ( > 5 mm) 2 >1 focal lesion 3 Confluent lesions Dominic Garcia et al. The clinical use of structural MRI in Alzheimer disease. Nature Reviews Neurology 6;67 (2010). Orlando et al. Validation of a fully automated 3D hippocampal segmentation method using subjects with Alzheimer's disease mild cognitive impairment, and elderly controls. Neuroimage 43;59 (2008). Rosalie et al. A New Rating Scale for Age-Related White Matter Changes Applicable to MRI and CT. Stroke. 32:1318 (2001). * Asymmetry index defined as difference between left and right volumes divided by mean or [(L-R/Mean) x 100] (%). Age-matched reference charts measure total hippocampal volume (% of intracranial volume). See results from the analysis charts for details. Transcribe Date/Time: Apr 01 2024 8:21A Dictated by: VALERY BARILLAS MD This examination was interpreted and the report reviewed and electronically signed by: VALERY BARILLAS MD on Apr 01 2024 8:26AM EST Thank you for allowing us to participate in the care of your patient. Should there be any questions regarding this interpretation, please call . If you are unable to reach us at the number above, please feel free to contact [facility] at [phone]. [id number] Normal [facility] TSH SerPl-aCncon 03-24-2024 TSH Qn 2.560 m[IU]/L Normal 0.270-4.200 [facility] Comment on above: Order Comment: Speci men Type: BLOOD SPECIMENOrdering Facility: [facility] Address: [address] [place] [address] Performed By: #### 2 132-9, 6-3 ####[facility] [id number] [place] [address] [place] Vit B12 SerPl-mCncon 024 Cobalamin (Vitamin B12) [Mass/Vol] 1548 pg/mL High 232-1245 [facility] Comment on above: Order Comment: Speci men Type: BLOOD SPECIMENOrdering Facility: [facility] Address: [address] [place] [address] Performed By: #### 2 132-9, 6-3 ####[facility] [id number] [place] [id number] [place] CNOVon 03-19-2024 [facility] ZAIN VENCES ([id number]) 1950 M Date Time Provider Department 03/19/24 3:30 PM TESSY FIELDS During your visit today, we recorded the following information about you: Pulse Respiration Blood pressure Weight Normal [facility] CNOVon 03-03-2024 CNOV Office Visit ([facility] ) ZAIN VENCES ([id number]) 1950 M Date Time Provider Department 03/03/24 11:40 AM TESSY FIELDS During your visit today, we recorded the following information about you: Pulse Respiration Blood pressure Weight 56/minute 16/minute 124/70 84.4 kg Tessy Fields MD 03/03/2024 12:45 PM Signed Zain Melton Ru is a 73 year old male here for a Medicare wellness visit. Medicare Health Risk Assessment General Health Very good Exercise: Minutes/Day 30 min Exercise: Days/Week 6 days Alcohol: Daily Use Monthly or less Alcohol: Drinks/Day 1 or 2 Alcohol: 6 or more drinks Never Feel off balance No Concerns: Teeth/Dentures No Concerns: Sexual function No Troubled by feelings no Frequency: Eating healthy diet No ADLs requiring help no Safety precautions in home/vehicle No Smoke, vape, chews tobacco No Difficulty hearing No Difficulty seeing No Current Providers Specialists: I have reviewed specialist-related care of the patient in the medical record. Medical/Family history review Reviewed and updated problem list, medical/surgical/famil y/social history, medications, and allergies. Opioid use review Opioid Medications (last 90 days) No data to display Anxiety/Depression screening PHQ-9 Score: 0. ISSAC-7 Score: 0. Recommendation: no further intervention at this time Cognitive screening 2- got 2 words but could not do the clock Cognitive screening reviewed and Recommended referral for further evaluation (score 0-2). Functional Observation Was the patient's Timed Up AND Go test unsteady or >= 12 seconds? No Advance Care Planning Patient did not wish or was not able to name a surrogate decision maker or provide an advance care plan Measurements BP 124/70 Pulse (!) 56 Resp 16 Wt 84.4 kg (186 lb) BMI 27.07 kg/m? Assessment/Plan Medicare annual wellness visit, subsequent (Z00.00) - Counseled on healthy diet and regular exercise - Fall avoidance information provided - Personalized prevention plan providedCC: Patient presents with: 6 mo follow up HPI Zain Vences is a 73 year old male who presents today for routine follow up but wants to discuss memory concerns. Concern with forgetfulness. Patient forgets people from years back and is concerned as well. Unable to say how long and is situational. Patient feels it is only things that aren't very important to him. No family history of dementia. Did get worked up last year for this without remarkable labs. MMSE 6 months ago was 28/30. Patient denies getting lost, forgetting how to get places. 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 Occasional Lightheadedness. Intermittent and resolves on its own. Does not relate it to certain positions. Denies falls syncope weakness or numbness. HLD: Eats healthy most of the time. [place] and walking miles regularly. Denies chest pain, shortness of breath, or exercise intolerance. Chronic anemia: Last colonoscopy normal in 2020. Denies dark sticky stools, blood in stools, and previous iron and b12 studies were normal. 03/03/24: patient had surgery on both of his eyes for cataract. He had very strong astigmatism, but now he can see very clearly. He also sees colors that he did not see before. Sleeps well. He is not lightheaded like before, not sure but thinks stopping the alcohol and cutting out sugar. Patient eats healthy from his garden, he is vegan. Does note minor memory issues. He plays his instruments and really enjoys doing it. Brother had prostate cancer. Brother was diagnosed 7 years ago with prostate cancer. He recovered quite well. REVIEW OF SYSTEMS General: no fevers, no chills, no night sweats, no recurrent infections, no change in appetite, no change in energy, and no significant changes in weight Respiratory: no cough, no wheezing, no shortness of breath, no hemoptysis Cardiovascular: no chest pain, no chest pressure, no palpitations, and no swelling GI: No nausea, vomiting, or diarrhea Psych: PHQ2 is 0 Endocrine: no fatigue, no weight gain, no weight loss, no polyuria, no polyphagia, and no polydipsia Neurologic: No headache, weakness, numbness, tingling, dizziness, memory loss, syncope. PAST MEDICAL HISTORY Diagnosis Date Anemia, unspecified Essential hypertension, benign Internal hemorrhoids without mention of complication Mixed hyperlipidemia Seborrheic dermatitis, unspecified PAST SURGICAL HISTORY Procedure Laterality Date COLONOSCOPY FLX DX W/COLLJ SPEC WHEN PFRMD 09/08/2010 COLONOSCOPY FLX DX W/COLLJ SPEC WHEN PFRMD 10/05/2020 ALLERGIES Latex MEDICATIONS rosuvastatin (CRESTOR) 10 mg tablet Take 1 tablet by mouth once daily. niacin 500 mg ORAL tablet Take one(1) tablet daily. FAMILY HISTORY Prob (more content not included)... Normal [facility] ([id number]) 1950 M Date Time Provider Department 03/03/24 RADHA MORALES During your visit today, we recorded the following information about you: Analilia Medeiros MA 03/03/2024 1:06 PM Signed Consult to geriatrics pended for memory issues. Please file if agreeable. MATTHEW Humphrey Joy, APRN.[facility] 03/03/2024 1:43 PM Signed Agree with recommendation. Order placed Thank you Radha Morales APRN.[employer] Allergies As of Date: 03/03/2024 Noted Allergy Reaction LATEX 07/21/2010 14 - Other: See Comments Comments: burning on the face Date Reviewed: 03/03/2024 Reviewed by: Analilia Medeiros MA - Fully Assessed Reason for Visit: Orders [681] Primary Visit Diagnosis:Memory impairment [R41.3] Order(s):CONSULT TO GERIATRICS [9028] Order #: [id number]: 1 FUTURE Prescriptions as of 03/03/2024 - rosuvastatin (CRESTOR) 10 mg tablet Take 1 tablet by mouth once daily. - niacin 500 mg ORAL tablet Take one(1) tablet daily. Problem List As Of Date 03/03/2024 Noted Resolved Anemia, unspecified [D64.9] Essential hypertension, benign [I10] Mixed hyperlipidemia [E78.2] Seborrheic dermatitis, unspecified [L21.9] Encounter Status:Closed by RADHA MORALES on 03/03/24 Normal [facility] EMERGENCY REPORTon 2 EMERGENCY REPORT [facility] EMERGENCY ROOM REPORT NAME ACCOUNT SEX AGE ADMIT DISCHARGE PT MED. RECORD# NUMBER DATE DATE TYPE ZAIN VENCES [id number] M 71 09/07/21 09/07/21 3 C [id number] ROOM: ER DATE OF : 1950 DICTATING PHYSICIAN: Prince Saba HISTORY OF PRESENT ILLNESS: Mr. Zain Vences is a 71-year-old male who reports that he fell yesterday evening around 5 [address] the pavement on outstretched hands injuring his right wrist. He states that initially he had mild pain, but he has had increasing pain in his right wrist since last evening. He did take extra strength Tylenol overnight with some relief of the patient. He states that movement seems to aggravate the pain, and the pain seems to localize to the left wrist and does not seem to affect his fingers. No similar episodes in the past. REVIEW OF SYSTEMS: Review of systems is positive only for pain in his right wrist. Balance of review of systems is normal. PHYSICAL EXAMINATION: VITAL SIGNS: His temperature is 97.8 degrees Fahrenheit, pulse 71, respirations 16, blood pressure 107/74, pulse oximetry 98%. GENERAL APPEARANCE: He is alert. He is oriented. He answers questions appropriately. He is in no acute distress. HEENT: Head is normocephalic and atraumatic. Eyes, ears, nose, and throat are clear. NECK: Neck is supple. LUNGS: Clear with nonlabored respirations. HEART: Normal peripheral perfusion. EXTREMITIES: He does have bony tenderness, which localizes to the distal ventral right radius, and there is mild swelling at this area. He has normal range of motion and no bony tenderness in the right hand. NEUROLOGIC: Intact. PSYCHIATRIC: Appropriate. DIAGNOSTIC DATA: The patient's x-ray is negative for fracture. EMERGENCY DEPARTMENT COURSE AND TREATMENT/PLAN/DISPOSI TION: Plan is for x-ray of the right wrist. He was treated with a cock-up wrist splint. Supportive care. Tylenol and/or ibuprofen as needed. He is to followup with primary care physician to review this emergency department visit or return to the emergency department for any worsening symptoms. The patient is in agreement with this plan. DIAGNOSIS: Fall with right wrist sprain. Dictated By: Prince Saba MD 09/07/21 09:31 JOB #: [id number] Page 1 of 2 ZAIN VENCES Emergency Room Report ZAIN VENCES : 1950 Transcribed By: am 09/07/21 13:43 Electronically signed by: Dr. Prince Saba MD 09/07/21 19:07 Page 2 of 2 ZAIN VENCES Emergency Room Report Normal [facility] WRIST COMPLETE RTon 09-08-19 WRIST COMPLETE RT [place] [address] Patient: RU ZAIN Linh. Phone#: : 1950 Age: 71 Gender: M Pt. Type: ER Account: [id number] Location: 2 Ordering: DR. PRINCE SABA Exam Date: 09/07/2021/8:50 Family Phys: TESSY FIELDS Charge Code: 065601 Physician: Cecil Order #: [id number] DLP Dose#: PROCEDURE: X-RAY WRIST RT COMPLETE MIN 3 VIEWS COMPARISON: None. INDICATIONS: Pain. FINDINGS: BONES: No fracture or dislocation. Subchondral cysts are seen in the lunate. SOFT TISSUES: There is soft tissue swelling of the wrist EFFUSION: None visible. OTHER: Negative. CONCLUSION: 1. No acute osseous abnormality. Note: An acute wrist fracture may not be initially evident on radiograph. If there is persistent pain in 7-10 days recommend repeat radiograph 2. Degenerative changes in the lunate. Dictated by: Evonne Lin MD on 09/07/2021 at 9:07 Approved by: Evonne Lin MD on 09/07/2021 at 9:[address] [facility] Vital Signs Date Time Vital Sign Value Performing Clinician Adelei lissy 11-20-2024 10:54-0400 Body mass index (BMI) [Ratio] 27.1 kg/m2 Tessy Fields MD Work Phone: [facility] 11-20-2024 10:54-0400 Body weight 84.46 kg Tessy Fields MD Work Phone: [facility] 11-20-2024 10:54-0400 Diastolic blood pressure 84 mm[Hg] Tessy Fields MD Work Phone: [facility] 11-20-2024 10:54-0400 Heart rate 52 /min Tessy Fields MD Work Phone: [facility] 11-20-2024 10:54-0400 Respiratory rate 16 /min Tessy Fields MD Work Phone: [facility] 11-20-2024 10:54-0400 Systolic blood pressure 120 mm[Hg] Tessy Fields MD Work Phone: [facility] 10-20-2024 15:18-0400 Body mass index (BMI) [Ratio] 27.66 kg/m2 Radha Morales ELECTRO MECH[employer]IC.[employer] Work Phone: [facility] 10-20-2024 15:18-0400 Body weight 86.18 kg Radha Morales ELECTRO MECH[employer]IC.[employer] Work Phone: [facility] 10-20-2024 15:18-0400 Diastolic blood pressure 78 mm[Hg] Radha Morales ELECTRO MECH[employer]IC.[employer] Work Phone: [facility] 10-20-2024 15:18-0400 Heart rate 57 /min Radha Older ELECTRO MECH[employer]IC.[employer] Work Phone: [facility] 10-20-2024 15:18-0400 Respiratory rate 16 /min Radha Older ELECTRO MECH[employer]IC.[employer] Work Phone: [facility] 10-20-2024 15:18-0400 SaO2% (BldA) [Mass fraction] 96 % Radha Older ELECTRO MECH[employer]IC.[employer] Work Phone: [facility] 10-20-2024 15:18-0400 Systolic blood pressure 134 mm[Hg] Radha Older ELECTRO MECH[employer]IC.[employer] Work Phone: [facility] 07-24-2024 10:49-0500 Body height 176.5 cm Tessy Fields MD Work Phone: [facility] 07-24-2024 10:49-0500 Body mass index (BMI) [Ratio] 28.24 kg/m2 Tessy Fields MD Work Phone: [facility] 07-24-2024 10:49-0500 Body weight 88 kg Tessy Fields MD Work Phone: [facility] 07-24-2024 10:49-0500 Diastolic blood pressure 78 mm[Hg] Tessy Fields MD Work Phone: [facility] 07-24-2024 10:49-0500 Heart rate 55 /min Tessy Fields MD Work Phone: [facility] 07-24-2024 10:49-0500 SaO2% (BldA) [Mass fraction] 96 % Tessy Fields MD Work Phone: [facility] 07-24-2024 10:49-0500 Systolic blood pressure 142 mm[Hg] Tessy Fields MD Work Phone: [facility] 04-17-2024 11:30-0500 Body mass index (BMI) [Ratio] 27.05 kg/m2 Tessy Fields MD Work Phone: [facility] 04-17-2024 11:30-0500 Body weight 84.3 kg Tessy Fields MD Work Phone: [facility] 04-17-2024 11:30-0500 Diastolic blood pressure 86 mm[Hg] Tessy Fields MD Work Phone: [facility] 04-17-2024 11:30-0500 Heart rate 65 /min Tessy Fields MD Work Phone: [facility] 04-17-2024 11:30-0500 SaO2% (BldA) [Mass fraction] 99 % Tessy Fields MD Work Phone: [facility] 04-17-2024 11:30-0500 Systolic blood pressure 138 mm[Hg] Tessy Fields MD Work Phone: [facility] 03-19-2024 15:39-0400 Body mass index (BMI) [Ratio] 27.22 kg/m2 Tessy Fields MD Work Phone: [facility] 03-19-2024 15:39-0400 Body weight 84.82 kg Tessy Fields MD Work Phone: [facility] 03-19-2024 15:39-0400 Diastolic blood pressure 80 mm[Hg] Tessy Fields MD Work Phone: [facility] 03-19-2024 15:39-0400 Heart rate 57 /min Tessy Fields MD Work Phone: [facility] 03-19-2024 15:39-0400 Respiratory rate 16 /min Tessy Fields MD Work Phone: [facility] 03-19-2024 15:39-0400 Systolic blood pressure 130 mm[Hg] Tessy Fields MD Work Phone: [facility] 03-03-2024 11:43-0400 Body mass index (BMI) [Ratio] 27.07 kg/m2 Tessy Fields MD Work Phone: [facility] 03-03-2024 11:43-0400 Body weight 84.37 kg Tessy Fields MD Work Phone: [facility] 03-03-2024 11:43-0400 Diastolic blood pressure 70 mm[Hg] Tessy Fields MD Work Phone: [facility] 03-03-2024 11:43-0400 Heart rate 56 /min Tessy Fields MD Work Phone: [facility] 03-03-2024 11:43-0400 Respiratory rate 16 /min Tessy Fields MD Work Phone: [facility] 03-03-2024 11:43-0400 Systolic blood pressure 124 mm[Hg] Tessy Fields MD Work Phone: [facility] 08-31-2023 11:57-0400 Body weight 84.82 kg Radha Older [employer]LECTRO MECH[employer]IC.[employer] Work Phone: [facility] 08-31-2023 11:57-0400 Diastolic blood pressure 92 mm[Hg] Radha Older ELECTRO MECH[employer]IC.[employer] Work Phone: [facility] 08-31-2023 11:57-0400 Heart rate 56 /min Radha Older ELECTRO MECH[employer]IC.[employer] Work Phone: [facility] 08-31-2023 11:57-0400 Respiratory rate 16 /min Radha Older ELECTRO MECH[employer]IC.[employer] Work Phone: [facility] 08-31-2023 11:57-0400 SaO2% (BldA) [Mass fraction] 97 % Radha Older ELECTRO MECH[employer]IC.[employer] Work Phone: [facility] 08-31-2023 11:57-0400 Systolic blood pressure 144 mm[Hg] Radha Older ELECTRO MECH[employer]IC.[employer] Work Phone: [facility] 12-14-2022 08:04-0400 Body temperature 97 [degF] Radha Older ELECTRO MECH[employer]IC.[employer] Work Phone: [facility] 12-14-2022 08:04-0400 Body weight 83.46 kg Radha Older ELECTRO MECH[employer]IC.[employer] Work Phone: [facility] 12-14-2022 08:04-0400 Diastolic blood pressure 76 mm[Hg] Radha Older ELECTRO MECH[employer]IC.[employer] Work Phone: [facility] 12-14-2022 08:04-0400 Heart rate 52 /min Radha Older ELECTRO MECH[employer]IC.[employer] Work Phone: [facility] 12-14-2022 08:04-0400 Respiratory rate 16 /min Radha Older ELECTRO MECH[employer]IC.[employer] Work Phone: [facility] 12-14-2022 08:04-0400 SaO2% (BldA) [Mass fraction] 98 % Radha Older ELECTRO MECH[employer]IC.[employer] Work Phone: [facility] 12-14-2022 08:04-0400 Systolic blood pressure 112 mm[Hg] Radha Older ELECTRO MECH[employer]IC.[employer] Work Phone: [facility] 11-15-2022 08:35-0400 Body weight 84.37 kg Radha Older ELECTRO MECH[employer]IC.[employer] Work Phone: [facility] 11-15-2022 08:35-0400 Diastolic blood pressure 80 mm[Hg] Radha Older ELECTRO MECH[employer]IC.[employer] Work Phone: [facility] 11-15-2022 08:35-0400 Heart rate 56 /min Radha Older ELECTRO MECH[employer]IC.[employer] Work Phone: [facility] 11-15-2022 08:35-0400 Respiratory rate 16 /min Radha Older ELECTRO MECHANIC.[employer] Work Phone: [facility] 11-15-2022 08:35-0400 Systolic blood pressure 118 mm[Hg] Radha Older ELECTRO MECH[employer]IC.[employer] Work Phone: [facility] 01-30-2022 10:10-0400 Body height 176.5 cm Tessy Fields MD Work Phone: [facility] 01-30-2022 10:10-0400 Body temperature 96.6 [degF] Tessy Fields MD Work Phone: [facility] 01-30-2022 10:10-0400 Body weight 82.1 kg Tessy Fields MD Work Phone: [facility] 01-30-2022 10:10-0400 Diastolic blood pressure 60 mm[Hg] Tessy Fields MD Work Phone: [facility] 01-30-2022 10:10-0400 Heart rate 58 /min Tessy Fields MD Work Phone: [facility] 01-30-2022 10:10-0400 Respiratory rate 12 /min Tessy Fields MD Work Phone: [facility] 01-30-2022 10:10-0400 SaO2% (BldA) [Mass fraction] 97 % Tessy Fields MD Work Phone: [facility] 01-30-2022 10:10-0400 Systolic blood pressure 104 mm[Hg] Tessy Fields MD Work Phone: [facility] 12-07-2021 14:54-0400 Body temperature 97.9 [degF] Austin Fuentes MD Work Phone: [facility] 12-07-2021 14:54-0400 Body weight 81.65 kg Austin Fuentes MD Work Phone: [facility] 12-07-2021 14:54-0400 Diastolic blood pressure 72 mm[Hg] Austin Fuentes MD Work Phone: [facility] 12-07-2021 14:54-0400 Heart rate 58 /min Austin Fuentes MD Work Phone: [facility] 12-07-2021 14:54-0400 Respiratory rate 21 /min Austin Fuentes MD Work Phone: [facility] 12-07-2021 14:54-0400 SaO2% (BldA) [Mass fraction] 100 % Austin Fuentes MD Work Phone: [facility] 12-07-2021 14:54-0400 Systolic blood pressure 118 mm[Hg] Austin Fuentes MD Work Phone: [facility] Encounters Encounter Date Encounter Type Care Provider Facility Start: 01-14-2025 End: 01-14-2025 ambulatory Abby Damon OT/[facility] [place] Comment on above: 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) Start: 01-01-2025 End: 01-01-2025 ambulatory Divine Tam MATTHEW [facility] Start: 01-01-2025 End: 01-01-2025 Patient encounter procedure Divine Tam MA [facility] Comment on above: Population Health Na vigation Outreach ([place]/Workbench/ACO ) Start: 12-22-2024 End: 12-24-2024 Refill Radha Morales ELECTRO MECH[employer]IC.[employer] Work Phone: [facility] Comment on above: Refill Request Start: 12-10-2024 End: 12-10-2024 [facility] Facility:[facility] Start: 11-21-2024 End: 01-21-2025 Follow-up encounter Radha Morales ELECTRO MECH[employer]IC.[employer] Work Phone: [facility] Comment on above: Results Start: 11-20-2024 End: 11-20-2024 Office outpatient visit 25 minutes Tessy Fields MD Work Phone: Geriatrics Comment on above: 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) (Primary Dx); Hyperkalemia; Weight loss; Essential (primary) hypertension Start: 11-20-2024 End: 11-20-2024 [facility] Facility:[facility] Start: 11-18-2024 End: 11-18-2024 [facility] Facility:[facility] Start: 10-20-2024 End: 10-20-2024 Office outpatient visit 25 minutes Radha Morales ELECTRO MECH[employer]IC.[employer] Work Phone: [facility] [place] Comment on above: Essential hypertensi on, benign (Primary Dx); Hyperkalemia Start: 10-20-2024 End: 10-20-2024 ambulatory [facility] Facility:[facility] Start: 10-17-2024 End: 12-17-2024 Follow-up encounter Radha Morales ELECTRO MECH[employer]IC.[employer] Work Phone: [facility] [place] Start: 10-16-2024 End: 10-16-2024 [facility] Start: 09-26-2024 End: 11-26-2024 Follow-up encounter Tessy Fields MD Work Phone: [facility] [place] Start: 09-26-2024 End: 10-20-2024 Telephone encounter Tessy Fields MD Work Phone: [facility] [place] Comment on above: Medication Problem Start: 09-25-2024 End: 09-25-2024 [facility] Start: 08-25-2024 End: 08-25-2024 Telephone encounter Tessy Fields MD Work Phone: [facility] [place] Comment on above: Results Start: 08-21-2024 End: 08-25-2024 Follow-up encounter Tessy Fields MD Work Phone: Geriatrics Comment on above: Results Start: 08-20-2024 End: 08-20-2024 [facility] Start: 07-31-2024 End: 07-31-2024 Refill Tessy Fields MD Work Phone: [facility] [place] Comment on above: Refill Request Start: 07-24-2024 End: 07-24-2024 ambulatory SELF Facility:[facility] Start: 07-24-2024 End: 07-24-2024 Office outpatient new 45 minutes Tessy Fields MD Work Phone: Geriatrics Comment on above: Mixed hyperlipidemia (Primary Dx); Essential hypertension; Mild late onset Alzheimer's dementia without behavioral disturbance, psychotic disturbance, mood disturbance, or anxiety (HCC); Hyperkalemia Start: 07-23-2024 End: 07-23-2024 ambulatory [facility] Facility:[facility] Start: 07-19-2024 End: 07-21-2024 ambulatory Tessy Fields MD Work Phone: Geriatrics Comment on above: Blood Work Start: 04-17-2024 End: 04-17-2024 ambulatory [facility] Facility:[facility] Start: 04-17-2024 End: 04-17-2024 Patient encounter procedure Tessy Fields MD Work Phone: Geriatrics Comment on above: Essential hypertensi on (Primary Dx); Mild cognitive impairment Start: 04-03-2024 End: 04-03-2024 Telephone encounter Tessy Fields MD Work Phone: [facility] [place] Start: 03-31-2024 End: 03-31-2024 ambulatory [facility] Facility:[facility] Start: 03-31-2024 End: 03-31-2024 Subsequent hospital visit by physician Chito Dao (3t) Work Phone: Radiology Comment on above: Cognitive impairment , mild, so stated [G31.84] Start: 03-24-2024 End: 03-24-2024 [facility] Facility:[facility] Start: 03-21-2024 End: 03-21-2024 ambulatory Tessy Fields MD Work Phone: Geriatrics Comment on above: Medication request Refill Request Start: 03-19-2024 End: 03-19-2024 Patient encounter procedure Tessy Fields MD Work Phone: Geriatrics Comment on above: Cognitive impairment , mild, so stated (Primary Dx); Memory impairment; Mixed hyperlipidemia Start: 03-19-2024 End: 03-19-2024 ambulatory [facility] Facility:[facility] Start: 03-03-2024 End: 03-03-2024 Telephone encounter Radha Morales APRN.CNP Work Phone: [facility] [place] Comment on above: Orders Start: 03-03-2024 End: 03-03-2024 ambulatory [facility] Facility:[facility] Start: 03-03-2024 End: 03-03-2024 Office outpatient visit 15 minutes Tessy Fields MD Work Phone: [facility] [place] Comment on above: Medicare annual well ness visit, subsequent (Primary Dx); Encounter for immunization; Memory impairment; Mixed hyperlipidemia Start: 03-03-2024 End: 03-03-2024 Patient encounter procedure Tessy Fields MD Work Phone: [facility] Work Phone: Start: 08-31-2023 End: 08-31-2023 Patient encounter procedure Radha Older ELECTRO MECH[employer]IC.[employer] Work Phone: [facility] [place] Comment on above: Memory change (Prima ry Dx); Lightheaded; Dementia without behavioral disturbance (HCC) Start: 07-29-2023 ambulatory Radha Older ELECTRO MECHANIC .[employer] Work Phone: [facility] Start: 07-29-2023 Patient encounter procedure Radha Older ELECTRO MECHANIC.[employer] Work Phone: [facility] [place] Comment on above: Rescheduling appoint ment to another time or day. Start: 07-25-2023 End: 07-25-2023 ambulatory Analilia Lopez JAIDAForestLinh Work Phone: [facility] [place] Comment on above: Positive self-admini stered antigen test for COVID-19 (Primary Dx) Start: 07-25-2023 End: 07-25-2023 Telemedicine consultation with patient Analilia Lopez JAIDAForestLinh Work Phone: [facility] Start: 06-22-2023 Telephone encounter Neurology Provid er Neurology Comment on above: Appointment Start: 12-14-2022 End: 12-14-2022 Patient encounter procedure Radha Older ELECTRO MECH[employer]IC.[employer] Work Phone: [facility] [place] Comment on above: Palpitations (Primar y Dx); Memory change Start: 11-15-2022 End: 11-15-2022 Patient encounter procedure Radha Older ELECTRO MECHANIC.[employer] Work Phone: [facility] [place] Comment on above: Palpitations (Primar y Dx); Other fatigue; Anemia, unspecified type; Bradycardia; Mixed hyperlipidemia Start: 08-21-2022 ambulatory Cliff marino Work Phone: Podiatry Comment on above: Painful Toe Start: 08-21-2022 Telephone encounter Cliff Reyes Work Phone: Podiatry Comment on above: Patient Question (To e nail/) Start: 07-05-2022 Refill Radha Older ELECTRO MECHANIC .[employer] Work Phone: [facility] [place] Comment on above: Refill Request Start: 01-30-2022 End: 01-30-2022 Patient encounter procedure Tessy Fields MD Work Phone: [facility] [place] Comment on above: Medicare annual well ness visit, subsequent (Primary Dx); Hypercholesterolemia; Family hx of prostate cancer; Prostate cancer screening Start: 01-19-2022 Refill Tessy March Work Phone: [facility] [place] Comment on above: Refill Request Start: 01-03-2022 End: 01-03-2022 Patient encounter procedure Cliff Heard Work Phone: Podiatry Comment on above: Open wound of toe, i nitial encounter (Primary Dx) Start: 12-20-2021 Telephone encounter Cliff Reyes Work Phone: Podiatry Comment on above: Results Start: 12-16-2021 End: 12-16-2021 Subsequent hospital visit by physician [facility] Work Phone: Radiology Comment on above: Ingrown toenail [L60 .0] Start: 12-16-2021 End: 12-16-2021 Patient encounter procedure Cliff Heard Work Phone: Podiatry Comment on above: Ingrown toenail Start: 12-14-2021 Telephone encounter Tessy ibarra MD Work Phone: [facility] [place] Comment on above: Podiatry Referral Start: 12-07-2021 End: 12-07-2021 Patient encounter procedure Austin Fuentes MD Work Phone: [facility] Comment on above: Onycholysis (Primary Dx); Paronychia of great toe of left foot Start: 12-07-2021 ambulatory Tessy March Work Phone: [facility] Comment on above: Infected toe Start: 12-07-2021 Telephone encounter Tessy ibarra MD Work Phone: [facility] Comment on above: Patient Question; Or ders Start: 09-07-2021 End: 09-07-2021 Emergency department patient visit PRINCE MD ST[facility]TER [facility] Procedures Date Procedure Procedure Detail Performing Clinician Start: 11-20-2024 Ecg routine ecg w/le ast 12 lds i&r only Tessy Fields MD Work Phone: Start: 07-23-2024 Lipid 1996 panel - S kevan or Plasma Tessy Fields MD Work Phone: Start: 03-03-2024 PFIZER-BIONTECH COVI D-19 VACCINE AGE 12+ YR Tessy Fields MD Work Phone: Start: 06-15-2023 Lipid 1996 panel - S kevan or Plasma Neurology Provider Start: 11-15-2022 End: 11-15-2022 Ecg routine ecg w/least 12 lds i&r only [facility] Provider Start: 01-30-2022 Adult depression scr eening assessment Tessy Fields MD Work Phone: Start: 12-16-2021 Radex toe minimum 2 views Cliff Félix Work Phone: Start: 01-15-2021 Adult depression scr eening assessment Tessy Fields MD Work Phone: Start: 10-05-2020 Colonoscopy Tessy ibarra MD Work Phone: Plan of Treatment Date Care Activity Detail Author Start: 10-05-2030 Colonoscopy COLONOSCOPY [facility] Start: 10-05-2030 COLORECTAL CANCER SCREENING COLORECTAL CANCER SCREENING [facility] Start: 10-05-2030 Screening for malignant neoplasm of colon [facility] Start: 07-23-2029 Lipid panel Lipid Screening [facility] Start: 06-15-2028 Lipid panel Lipid Screening [facility] Start: 12-11-2027 Diabetes Screening Diabetes Screening [facility] Start: 11-19-2027 Diabetes Screening Diabetes Screening [facility] Start: 11-11-2027 LIPID SCREEN LIPID SCREEN [facility] Start: 10-17-2027 Diabetes Screening Diabetes Screening [facility] Start: 08-21-2027 Diabetes Screening Diabetes Screening [facility] Start: 07-23-2027 Diabetes Screening Diabetes Screening [facility] Start: 02-27-2027 LIPID SCREEN LIPID SCREEN [facility] Start: 07-12-2026 LIPID SCREEN LIPID SCREEN [facility] Start: 06-15-2026 Diabetes Screening Diabetes Screening [facility] Start: 11-10-2025 DIABETES SCREEN DIABETES SCREEN [facility] Start: 10-20-2025 Annual PCP Team Chronic Disease Visit Annual PCP Team Chronic Disease Visit [facility] Start: 07-23-2025 BP Controlled (<130/80) BP Controlled (<130/80) [facility] Start: 06-18-2025 End: 06-18-2025 Patient encounter procedure 06/18/2025 11:30 AM EST Office Visit Geriatrics [address] [place] [address] Tessy Fields MD [address] [place] [address] 6 month follow up Geriatrics Comment on above: 6 month follow up Start: 03-03-2025 Annual PCP Team Chronic Disease Visit Annual PCP Team Chronic Disease Visit [facility] Start: 03-03-2025 BP Controlled (<130/80) BP Controlled (<130/80) [facility] Start: 03-03-2025 Medicare Annual Wellness Visit Medicare Annual Wellness Visit [facility] Start: 02-27-2025 DIABETES SCREEN DIABETES SCREEN [facility] Start: 02-09-2025 Influenza vaccination Influenza Vaccine (#1) [facility] Start: 01-14-2025 End: 01-14-2025 ambulatory 01/14/2025 9:45 AM EDT OT/PT/Speech Visit [facility] Occupation [facility] [address] [place] [id number] Abby Damon, OT/L 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) [G30.1, F02.B4] [facility] Occupation Therapy [place] Comment on above: 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) [G30.1, F02.B4] Start: 11-20-2024 End: 11-20-2024 Patient encounter procedure 11/20/2024 11:00 AM EDT Office Visit [facility] [address] [facility] [place] [address] Tessy Fields MD [address] [place] [address] 4 mo follow up, MOCA due, last MOCA completed 03/19/24 Geriatrics Comment on above: 4 mo follow up, MOCA due, last MOCA comp leted 03/19/24 Start: 11-03-2024 End: 02-02-2025 Basic metabolic 2000 panel - Serum or Plasma BASIC METABOLIC PANEL Lab Routine Hyperkalemia Expected: 11/03/2024 (Approximate), Expires: 02/02/2025 [facility] Work Phone: Comment on above: Expected: 11/03/2024 (Approximate), Expi res: 02/02/2025 Start: 09-25-2024 End: 12-25-2024 Basic metabolic 2000 panel - Serum or Plasma BASIC METABOLIC PANEL Lab Routine Hyperkalemia Expected: 09/25/2024, Expires: 12/25/2024 [facility] Work Phone: Comment on above: Expected: 09/25/2024, Expires: Start: 08-31-2024 Covid-19 Vaccine ( season) Covid-19 Vaccine ( season) [facility] Start: 08-30-2024 Annual PCP Team Chronic Disease Visit Annual PCP Team Chronic Disease Visit [facility] Start: 08-21-2024 End: 08-21-2024 ambulatory 08/21/2024 9:30 AM EDT Results Only [facility] [address] [place] [address] lab [facility] Comment on above: lab Start: 07-25-2024 Annual PCP Team Chronic Disease Visit Annual PCP Team Chronic Disease Visit [facility] Start: 07-24-2024 End: 10-23-2024 Basic metabolic 2000 panel - Serum or Plasma BASIC METABOLIC PANEL Lab Routine Hyperkalemia Expected: 07/24/2024, Expires: 10/23/2024 [facility] Work Phone: Comment on above: Expected: 07/24/2024, Expires: Start: 07-24-2024 End: 07-24-2024 Patient encounter procedure 07/24/2024 11:00 AM EST Office Visit Geriatrics [address] [place] [address] Tessy Fields MD [address] [place] [address] 3 month follow up Geriatrics Comment on above: 3 month follow up Start: 07-21-2024 End: 10-20-2024 Comprehensive metabolic 2000 panel - Serum or Plasma COMPREHENSIVE METABOLIC PANEL Lab Routine Essential hypertension Expected: 07/21/2024, Expires: 10/20/2024 [facility] Comment on above: Expected: 07/21/2024, Expires: Start: 07-21-2024 End: 10-20-2024 Lipid 1996 panel - Serum or Plasma LIPID PANEL BASIC Lab Routine Mixed hyperlipidemia Expected: 07/21/2024, Expires: 10/20/2024 [facility] Work Phone: Comment on above: Expected: 07/21/2024, Expires: Start: 06-15-2024 Annual PCP Team Chronic Disease Visit Annual PCP Team Chronic Disease Visit [facility] Start: 06-15-2024 BP Controlled (<130/80) BP Controlled (<130/80) [facility] Start: 06-11-2024 Advance Directive Discussion Advance Directive Discussion [facility] Start: 04-17-2024 End: 04-17-2024 Patient encounter procedure 04/17/2024 11:30 AM EST Office Visit Geriatrics [address] [place] [address] Tessy Fields MD [address] [place] [address] 6 week follow up Geriatrics Comment on above: 6 week follow up Start: 03-31-2024 End: 03-31-2024 Patient encounter procedure 03/31/2024 11:50 AM EDT Appointment Radiology [address] [place] [address] Cognitive impairment, mild, so stated [G31.84] Radiology Comment on above: Cognitive impairment, mild, so stated [G 31.84] Start: 03-19-2024 End: 03-19-2024 Patient encounter procedure 03/19/2024 3:30 PM EDT Office Visit Geriatrics [address] [place] [address] Tessy Fields MD [address] [place] [address] Consult to Geriatrics Geriatrics Comment on above: Consult to Geriatrics Start: 03-19-2024 End: 06-18-2024 Cobalamin (Vitamin B12) [Mass/volume] in Serum or Plasma VITAMIN B12 Lab Routine Cognitive impairment, mild, so stated Expected: 03/19/2024, Expires: 06/18/2024 [facility] Comment on above: Expected: 03/19/2024, Expires: Start: 03-19-2024 End: 06-18-2024 Thyrotropin [Units/volume] in Serum or Plasma THYROID STIMULATING HORMONE Lab Routine Cognitive impairment, mild, so stated Expected: 03/19/2024, Expires: 06/18/2024 [facility] Comment on above: Expected: 03/19/2024, Expires: Start: 01-13-2024 DIABETES SCREEN DIABETES SCREEN [facility] Start: 12-15-2023 ANNUAL PCP TEAM CHRONIC DISEASE VISIT ANNUAL PCP TEAM CHRONIC DISEASE VISIT [facility] Start: 12-15-2023 BP CONTROLLED (<130/80) BP CONTROLLED (<130/80) [facility] in Start: 12-15-2023 HEPATITIS C SCREENING HEPATITIS C SCREENING [facility] Comment on above: Postponed from 1967 (Declined at t his time) Start: 12-15-2023 Hepatitis C screening Hepatitis C Screening [facility] Comment on above: Postponed from 1967 (Declined at t his time) Start: 12-15-2023 Pneumococcal Vaccine: 65+ (2 of 2 - PCV) Pneumococcal Vaccine: 65+ (2 of 2 - PCV) [facility] Comment on above: Postponed from 01/20/2016 (Declined at t his time) Start: 12-15-2023 PNEUMOCOCCAL: 65+ (1 - PCV) PNEUMOCOCCAL: 65+ (1 - PCV) [facility] Comment on above: Postponed from 2014 (Declined at t his time) Start: 12-15-2023 Urine microalbumin profile [facility] Comment on above: Postponed from 1968 (Declined at t his time) Postponed from 01/15 (Declined at this time) Start: 11-16-2023 ANNUAL PCP TEAM CHRONIC DISEASE VISIT ANNUAL PCP TEAM CHRONIC DISEASE VISIT [facility] Start: 06-11-2023 Advance Directive Discussion Advance Directive Discussion [facility] Start: 06-11-2023 Depression Assessment Depression Assessment [facility] Start: 02-09-2023 Influenza vaccination [facility] Start: 01-30-2023 Adult depression screening assessment DEPRESSION SCREENING [facility] Start: 01-30-2023 ANNUAL PCP TEAM CHRONIC DISEASE VISIT ANNUAL PCP TEAM CHRONIC DISEASE VISIT [facility] Start: 01-30-2023 BP CONTROLLED (<130/80) BP CONTROLLED (<130/80) [facility] Start: 12-07-2022 BP CONTROLLED (<130/80) BP CONTROLLED (<130/80) [facility] Start: 11-17-2022 SHINGRIX VACCINE (2 of 2) SHINGRIX VACCINE (2 of 2) [facility] Start: 11-15-2022 End: 01-15-2023 Cobalamin (Vitamin B12) [Mass/volume] in Serum or Plasma [facility] Work Phone: Comment on above: Expected: 11/15/2022, Expires: 3 Start: 11-15-2022 End: 01-15-2023 Ferritin [Mass/volume] in Serum or Plasma [facility] Work Phone: Comment on above: Expected: 11/15/2022, Expires: 3 Start: 11-15-2022 End: 01-15-2023 Iron and Iron binding capacity panel - Serum or Plasma [facility] Work Phone: Comment on above: Expected: 11/15/2022, Expires: 3 Start: 07-20-2022 ANNUAL PCP TEAM CHRONIC DISEASE VISIT ANNUAL PCP TEAM CHRONIC DISEASE VISIT [facility] Start: 06-11-2022 ADVANCE DIRECTIVE DISCUSSION ADVANCE DIRECTIVE DISCUSSION [facility] Start: 06-11-2022 DEPRESSION ASSESSMENT DEPRESSION ASSESSMENT [facility] Start: 02-09-2022 Influenza vaccination [facility] Start: 01-30-2022 End: 04-01-2022 CBC W Auto Differential panel - Blood CBC + DIFF Lab Routine Hypercholesterolemia Expected: 01/30/2022, Expires: 04/01/2022 [facility] Work Phone: Comment on above: Expected: 01/30/2022, Expires: 2 Start: 01-30-2022 End: 04-01-2022 Comprehensive metabolic 2000 panel - Serum or Plasma COMP METABOLIC PANEL Lab Routine Hypercholesterolemia Expected: 01/30/2022, Expires: 04/01/2022 [facility] Work Phone: Comment on above: Expected: 01/30/2022, Expires: 2 Start: 01-30-2022 End: 04-01-2022 Lipid 1996 panel - Serum or Plasma LIPID PANEL BASIC Lab Routine Hypercholesterolemia Expected: 01/30/2022, Expires: 04/01/2022 [facility] Work Phone: Comment on above: Expected: 01/30/2022, Expires: 2 Start: 01-30-2022 End: 04-01-2022 PSA/PROSTSPECAG SCRN PSA/PROSTSPECAG SCRN Lab Routine Prostate cancer screening Expected: 01/30/2022, Expires: 04/01/2022 [facility] Work Phone: Comment on above: Expected: 01/30/2022, Expires: 2 Start: 01-15-2022 Adult depression screening assessment DEPRESSION SCREENING [facility] Start: 12-13-2021 COVID-19 VACCINE (5 - Booster for Moderna series) COVID-19 VACCINE (5 - Booster for Moderna series) [facility] Start: 06-11-2021 ADVANCE DIRECTIVE DISCUSSION ADVANCE DIRECTIVE DISCUSSION [facility] Start: 01-15-2019 Urine microalbumin profile DTaP,Tdap,Td Vaccine (4 - Td or Tdap) [facility] Start: 01-20-2016 Pneumococcal Vaccine: 50+ (2 of 2 - PCV) Pneumococcal Vaccine: 50+ (2 of 2 - PCV) [facility] Start: 01-20-2016 Pneumococcal Vaccine: 65+ (2 of 2 - PCV) Pneumococcal Vaccine: 65+ (2 of 2 - PCV) [facility] Start: 2014 PNEUMOCOCCAL: 65+ (1 - PCV) PNEUMOCOCCAL: 65+ (1 - PCV) [facility] Start: 1999 SHINGRIX VACCINE (1 of 2) SHINGRIX VACCINE (1 of 2) [facility] Start: 1994 COLOGUARD (FIT-DNA) COLOGUARD (FIT-DNA) [facility] Start: [address] COLONOGRAPHY [facility] Start: 1994 FECAL OCCULT BLOOD FECAL OCCULT BLOOD [facility] Start: 1994 Screening for malignant neoplasm of colon [facility] Start: 1994 SIGMOIDOSCOPY SIGMOIDOSCOPY [facility] Start: 1968 Urine microalbumin profile DTAP,TDAP,TD (1 - Tdap) [facility] Start: 1967 Anxiety Screening Anxiety Screening [facility] Start: 1967 BP CONTROLLED (<130/80) BP CONTROLLED (<130/80) [facility] Start: 1967 Depression Screening Depression Screening [facility] Start: 1967 HEPATITIS C SCREENING HEPATITIS C SCREENING [facility] Start: 1967 Hepatitis C screening Hepatitis C Screening [facility] Bacteria identified in Wound by Culture WOUND CULTURE AND GRAM STAIN Microbiology Routine Ingrown toenail 12/16/2021 11:52 AM EDT [facility] Work Phone: End: 11-16-2023 ECG COMPLETE ECG COMPLETE ECG Routine Palpitations Other fatigue 1 Occurrences starting 11/15/2022 until 11/16/2023 [facility] Work Phone: Comment on above: 1 Occurrences starting 11/15/2022 until 11/16/2023 ECG COMPLETE [facility] ECG COMPLETE ECG COMPLETE ECG Routine Hyperkalemia 11/20/2024 12:03 PM EDT [facility] Work Phone: End: 11-16-2023 Echocardiography ECHO Cardiology Routine Palpitations Other fatigue Bradycardia 1 Occurrences starting 11/15/2022 until 11/16/2023 [facility] Work Phone: Comment on above: 1 Occurrences starting 11/15/2022 until 11/16/2023 End: 04-18-2025 MR Brain WO contrast MRI BRAIN W QUANT WO IVCON Radiology Routine Cognitive impairment, mild, so stated 1 Occurrences starting 03/19/2024 until 04/18/2025 [facility] Work Phone: Comment on above: 1 Occurrences starting 03/19/2024 until 04/18/2025 End: 04-18-2025 MR Unspecified body region 3D post processing MRI 3D POST PROCESSING Radiology Routine Cognitive impairment, mild, so stated 1 Occurrences starting 03/19/2024 until 04/18/2025 [facility] Comment on above: 1 Occurrences starting 03/19/2024 until 04/18/2025 OUTSIDE VENDOR CARDI AC OUTPATIENT EXTENDED RHYTHM RECORDING (WITHOUT TELEMETRY) OUTSIDE VENDOR CARDIAC OUTPATIENT EXTENDED RHYTHM RECORDING (WITHOUT TELEMETRY) Holter Routine Palpitations Bradycardia Ordered: 11/15/2022 [facility] Work Phone: Comment on above: Ordered: 11/15/2022 XR TOE AP/LAT/OBL LEFT XR TOE AP /LAT/OBL LEFT Radiology Routine Ingrown toenail 12/16/2021 12:17 PM EDT [facility] Work Phone: [facility] Immunizations Immunization Date Immunization Notes Care Provider Fa cili 03-03-2024 COVID-19 vaccine, ag e 12+ yr ([employer]aint[employer]) Tessy Fields MD Work Phone: [facility] 03-03-2024 influenza, high dose seasonal, preservative-free Tessy Fields MD Work Phone: [facility] 03-03-2024 influenza virus vaccine, unspecified formulation Radha Morales APRN.[employer] Work Phone: [facility] 11-24-2022 zoster vaccine recombinant Radha Older ELECTRO MECHANIC.[employer] Work Phone: [facility] 09-22-2022 zoster vaccine recombinant Radha Older ELECTRO MECHANIC.[employer] Work Phone: [facility] Work Phone: 08-19-2020 COVID-19 vaccine, fu ll dose (MODERNA) Tessy Fields MD Work Phone: [facility] Work Phone: 07-22-2020 COVID-19 vaccine, fu ll dose (MODERNA) Tessy Fields MD Work Phone: [facility] Work Phone: Payers Date Payer Category Payer Private Health Insurance MMO MED ICARE SUPPLEMENT [id number] 2019 Unknown MMO MMO MEDICARE SUPPLEMENT [id number] 2019-Present [phone] [place], [place] [address] Indemnity [id number] 2019 Unknown MMO MMO MEDICARE SUPPLEMENT [id number] 2019-Present [phone] [address] [place] [address] Indemnity [id number] 2019 Unknown [id number] 2014 Medicare MEDICARE MEDICAR E A AND B [id number] 2014-Present [phone] [address] [address] [place] [address] Medicare [id number] 2014 Medicare [id number] 2014 Medicare [id number] 1950 Unknown [id number] Social History Date Type Detail Facility Start: 07-21-2010 Tobacco smoking status NHIS Never smoked tobacco [facility] Work Phone: Start: 07-21-2010 Tobacco use and exposure Smokeless tobacco non-user [facility] Work Phone: Start: 12-07-2021 End: 03-03-2024 Alcohol intake Current drinker of alcohol (finding) [facility] Start: 12-07-2021 End: 11-14-2022 Alcohol intake [facility] Start: 01-15-2021 End: 11-14-2022 History SDOH Alcohol Frequency 4 [facility] Start: 01-15-2021 End: 11-14-2022 History SDOH Alcohol Std Drinks 1 [facility] Start: 01-15-2021 End: 11-14-2022 History SDOH Social Connections Phone 5 [facility] Start: 01-15-2021 End: 11-14-2022 History SDOH Social Connections Scientology 3 [facility] Start: 01-15-2021 History SDOH Physical Activity DPW 7 [facility] Start: 01-15-2021 End: 11-14-2022 History SDOH Transport Med 2 [facility] Start: 01-15-2021 Education 17 [facility] Start: 1950 Sex Assigned At Male [facility] Start: 11-27-2021 End: 01-30-2022 Exposure to SARS-CoV-2 (event) Not sure [facility] Work Phone: Start: 11-14-2022 History SDOH Alcohol Std Drinks 0 [facility] Start: 11-14-2022 History SDOH Physical Activity DPW 6 [facility] Start: 11-14-2022 History SDOH Physical Activity MPS 15 [facility] Start: 11-14-2022 End: 02-27-2024 Social connection and isolation panel [facility] Start: 05-12-2012 Active Member of Clubs or Organizations Not on file [facility] Are you now , , , , never or living with a partner? [facility] How often to you hav e a drink containing alcohol? Never [facility] Do you feel stress - tense, restless, nervous, or anxious, or unable to sleep at night because your mind is troubled all the time - these days [OSQ] Not at all [facility] (I/We) worried wheth er (my/our) food would run out before (I/we) got money to buy more. Never true [facility] In the past 12 month s, was there a time when you were not able to pay the mortgage or rent on time? No [facility] Start: 01-15-2021 Gender identity Identifies as male gender (finding) [facility] Start: 01-15-2021 Sexual orientation Heterosexual (finding) [facility] Do you belong to any clubs or organizations such as zoroastrianism groups, unions, fraternal or athletic groups, or school groups? Yes [facility] How often to you hav e a drink containing alcohol? Monthly or less [facility] How many standard dr inks containing alcohol do you have on a typical day? 1 or 2 [facility] Start: 03-19-2024 End: 11-20-2024 Alcoholic beverage intake Ex-drinker (finding) [facility] Start: 03-19-2024 Education 21 [facility] Start: 03-19-2024 Alcohol Comment Once every once in a while [facility] Clinical Notes 12-07-2021 to 01-14-2025 Abby Damon OT/L - 01/14/2025 12:46 PM Divine Juarez MA - 01/01/2025 11:03 AM EDTTelephone Encounter - Mare Maxwell LPN - 12/22/2024 4:31 PM EDTPatient Instructions Note Date & Type Note Facility 01-14-2025 Note HNO ID: [id number] Author: ABBY DAMON OT/David Service: ? Author Type: Occupational Therapist Type: Progress Notes Filed: 01/23/2025 07:53 Note Text: Episode Visit Count: 1 Start of Care Date: 01/14/25 Onset Date: 06/11/24 (was diagnosed with Alzheimer's last fall while indicated concerns for the past 2.5 years) Plan of Care Certification Date: 01/14/25 Next Certification Due Date: 01/30/25 Patient Identified by Name and Date of : Yes REHABILITATION AND SPORTS THERAPY OCCUPATIONAL THERAPY INSTRUMENTAL ADL AND COMMUNITY MOBILITY EVALUATION SUBJECTIVE: Zain Vences is a 74 year old male seen today for OT functional community mobility assessment due to diagnosis of moderate late alzheimer's dementia with anxiety. His Sonia came to the appointment with him and provided helpful information throughout. She indicated concerns for the past 2.5 years. 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 She reported that there have been a couple of concerns while he was driving while near misses which heightened her concern. She mainly drives when they are together while will sometimes ride with him but not often. He usually will drive by himself for errands or to viola lessons. They have 2 children with one in [place] and the other in [place]. Functional Limitations: nothing Prior Level of Function: Required assistance Home Environment Patient Lives With: Spouse Assistance Available: 24-Hour Home Type: Multi-Level Transportation: Truck (2010 [employer]) Patient Goals: to determine if driving on his own is still safe Intake Information: Prescription present Falls Interview: No positive findings with falls interview Relevant History Past Relevant Medical Conditions: Anemia, Hypertension, Cardiac (hyperlipidemia) Highest Level of Education: Bachelors Right or Left Handed: Right Employment: Retired Recreation / Current Exercise: none Hobbies / Interests: playing various instruments Home Environment Patient Lives With: Spouse Assistance Available: 24-Hour Home Type: Multi-Level Transportation: Truck (2010 [employer]) Pain Level: 0 Post Treatment Pain Level: No Change Activities of Daily Living: Independent while showers every other day with consistent self care routine Instrumental Activities of Daily Living: he will clean up the kitchen/dishes, shares some cleaning tasks, had done laundry but unable to work the new machine, mows with instructions for same (change in behavior); they set up his pills together in pill box; 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 Violation HX: none 5 Yr. MVA HX: none HOWEVER HAS HAD SOME CLOSE CALLS INCLUDING LATE BRAKING, DID NOT YIELD WHEN TAKING LEFT TURN AT INTERSECTION, ALMOST DROVE INTO CONSTRUCTION BARRELS DID NOT MOVE OVER WHEN DRIVING 'S [place] Handicap Parking Placard: unknown _ PROMIS Scales 01/13/2025 Speech Cognitve Function T-Score 53 (within normal limits) Cognitive Function Percentile 62 Proxy-reported T-Score and Percentile Interpretation T-scores: mean of general population = 50. 5 points is clinically meaningfully difference Percentiles provide an indication of how the patient's score ranks in relation to the general population. Higher percentile rankings indicate better function/quality of life. 50th percentile is the average of the general population and indicates half of respondents had a worse score. OBJECTIVE MEASURES WITH LEVEL OF FUNCTION: SENSORIMOTOR ASSESSMENT: Hand dominance: Right Level of Function Relevant to I ADL, Community Mobility, and Driving: Right UE: Sufficient Left UE: Sufficient Reconciliation Accountant: Sufficient Right LE: Sufficient Left LE: Sufficient Sitting Balance: Sufficient Head / Neck: Sufficient Ambulation: Sufficient Transfers: Sufficient Loading of Device: N/A ASSESSMENT OF SENSORIMOTOR FUNCTION: Compatible with Driving while recommending increased physical activity/exercise; did indicate that they will go to the gym in winter time while suggested they consider doing this throughout the year _ VISION SCREENING: Vision Vision Deficits: Wears corrective lenses Corrective lenses: last formal eye exam 2022 while has bifocals; next appointment in 2024 Corrective Lenses: Wears glasses / contact lenses for driving Distant Acuity: Binocular: 20 / 30-1 Right: 20 / 40 Left: 20 / 70 Color Perception: pass Depth Perception: Pass Peripheral Vision: Within legal limits for driving Right Eye: Acknowledged all stimuli. Left Eye: Acknowledged all stimuli. Pursuits: Dec (more content not included)... [facility] 01-14-2025 History of Present illness Narrative Images from the original note were not included. Episode Visit Count: 1 Start of Care Date: 01/14/25 Onset Date: 06/11/24 (was diagnosed with Alzheimer's last fall while indicated concerns for the past 2.5 years) Plan of Care Certification Date: 01/14/25 Next Certification Due Date: 01/30/25 Patient Identified by Name and Date of : Yes REHABILITATION AND SPORTS THERAPY OCCUPATIONAL THERAPY INSTRUMENTAL ADL AND COMMUNITY MOBILITY EVALUATION SUBJECTIVE: Zain Vences is a 74 year old male seen today for OT functional community mobility assessment due to diagnosis of moderate late alzheimer's dementia with anxiety. His Sonia came to the appointment with him and provided helpful information throughout. She indicated concerns for the past 2.5 years. 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 She reported that there have been a couple of concerns while he was driving while near misses which heightened her concern. She mainly drives when they are together while will sometimes ride with him but not often. He usually will drive by himself for errands or to viola lessons. They have 2 children with one in [place] and the other in [place]. Functional Limitations: nothing Prior Level of Function: Required assistance Home Environment Patient Lives With: Spouse Assistance Available: 24-Hour Home Type: Multi-Level Transportation: Truck (2010 [employer]) Patient Goals: to determine if driving on his own is still safe Intake Information: Prescription present Falls Interview: No positive findings with falls interview Relevant History Past Relevant Medical Conditions: Anemia, Hypertension, Cardiac (hyperlipidemia) Highest Level of Education: Bachelors Right or Left Handed: Right Employment: Retired Recreation / Current Exercise: none Hobbies / Interests: playing various instruments Home Environment Patient Lives With: Spouse Assistance Available: 24-Hour Home Type: Multi-Level Transportation: Truck (2010 [employer]) Pain Level: 0 Post Treatment Pain Level: No Change Activities of Daily Living: Independent while showers every other day with consistent self care routine Instrumental Activities of Daily Living: he will clean up the kitchen/dishes, shares some cleaning tasks, had done laundry but unable to work the new machine, mows with instructions for same (change in behavior); they set up his pills together in pill box; 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 Violation HX: none 5 Yr. MVA HX: none HOWEVER HAS HAD SOME CLOSE CALLS INCLUDING LATE BRAKING, DID NOT YIELD WHEN TAKING LEFT TURN AT INTERSECTION, ALMOST DROVE INTO CONSTRUCTION BARRELS DID NOT MOVE OVER WHEN DRIVING 'S CELSA Handicap Parking Placard: unknown _ PROMIS Scales 01/13/2025 Speech Cognitve Function T-Score 53 (within normal limits) Cognitive Function Percentile 62 Proxy-reported T-Score and Percentile Interpretation T-scores: mean of general population = 50. 5 points is clinically meaningfully difference Percentiles provide an indication of how the patient's score ranks in relation to the general population. Higher percentile rankings indicate better function/quality of life. 50th percentile is the average of the general population and indicates half of respondents had a worse score. OBJECTIVE MEASURES WITH LEVEL OF FUNCTION: SENSORIMOTOR ASSESSMENT: Hand dominance: Right Level of Function Relevant to I ADL, Community Mobility, and Driving: Right UE: Sufficient Left UE: Sufficient Reconciliation Accountant: Sufficient Right LE: Sufficient Left LE: Sufficient Sitting Balance: Sufficient Head / Neck: Sufficient Ambulation: Sufficient Transfers: Sufficient Loading of Device: N/A ASSESSMENT OF SENSORIMOTOR FUNCTION: Compatible with Driving while recommending increased physical activity/exercise; did indicate that they will go to the gym in winter time while suggested they consider doing this throughout the year _ VISION SCREENING: Vision Vision Deficits: Wears corrective lenses Corrective lenses: last formal eye exam 2022 while has bifocals; next appointment in 2024 Corrective Lenses: Wears glasses / contact lenses for driving Distant Acuity: Binocular: 20 / 30-1 Right: 20 / 40 Left: 20 / 70 Color Perception: pass Depth Perception: Pass Peripheral Vision: Within legal limits for driving Right Eye: Acknowledged all stimuli. Left Eye: Acknowledged all stimuli. Pursuits: Decreased Speed while difficulty maintaining still head Saccades: Decreased Speed while difficulty maintaining still head Convergence: Impaired Nystagmus: Not Apparent Diplopia: No complaints Strabismus: No OU Cataracts: No OU Glaucoma: No. OU Other Eye Conditions / Diseases Reported: nothing indicated ASSESSMENT OF VISUAL FUNCTION: Compatible with Driving COGNITIVE / PERCEPTUAL ASSESSMENT: SHORT BLESSED TEST Short Blessed Test 1. What Year Is It Now?: Incorrect 2. What Month Is It Now?: Incorrect 3. What Time is it? (WIthin 1 hour): Incorrect 4. Count Aloud Backwards 20 to 1 (Errors): 0 5. Months of the Year in Reverse Order (Errors): 2 6. Memory Phrase (Errors) : 5 Short Blessed Final Score: 24 Short Blessed Test Scorin-8; Normal to minimal impairment 9-19; Moderate impairment 20-28; Severe impairment [email or web address] Immediate Recall: Below normal @ 5/7 digits while uncertain if hearing deficits but likely auditory attention deficits Visual Scanning/Attention: [place] Making Part B (sec): 338 sec (moderate to maximal v/c's) 50th percentile norm for age group: 70-79; Part A: 80 seconds, Part B: 196 seconds Areli Clock Drawing Test: Zain Vences correctly included 5/8 criteria for this test. He failed to include or correctly place: the numbers equally spaced, or nearly so, from the edge of the [place] one clock hand at the two o'clock position only two clock hands According to The Physician's Guide to Assessing and Counseling Older Drivers, 2003, any incorrect element in the Areli Clock Scoring signals a need for intervention. Motor Free Visual Perception Test: MVPT Total Score: 29 MVPT Processing time (seconds): 7.2 Norms: 70-80 y/o: Raw Score 25-35; Processing Time 4.5-7.1 seconds +/- .5 seconds Visual Inattention / Unilateral Neglect: Not Apparent ASSESSMENT OF COGNITIVE / PERCEPTUAL FUNCTION: Not Suggestive of Safe Driving Potential Jon Manager Benefit Simulator: Simple Brake Reaction Time: Average Distance: 66 feet (Normal = 60 feet) R foot only pedal operation method Education: Education Learning Preferences: Explanation Barriers: Cognitive Limitations Learning/educational needs: Safety Education Provided: Yes, see treatment interventions for education provided Education Provided To: Patient, Family () Education Mode/Type: Explanation/Discussion, Literature/Printed Materials Response to Education/Teach Back: States/Identifies TREATMENT: Evaluation Self-Group Home Management: 1: refer to details in this report 2: provided education and support to patient and his Skilled Intervention: Skilled judgment in the selection of proper modification for activity of daily living/home management based on clinical presentation, deficits, and needs. Educated the patient regarding recommendations and provided written instruction to facilitate compliance. Reviewed patient specific diagnosis in relation to activities of daily living/home management. Activity progression based on professional judgement. Community /Work Re-integration: OT Community/Work Reintegration: completed driving history intake, discussed expectations for driving in the future, completed simulated brake reaction distance screening Skilled Intervention: completed by this OT/L, CDRS, LDI PLAN OF CARE: SUMMARY AND RECOMMENDATIONS *The information in this report indicates the ability of the bus driver to operate a motor vehicle on this date only. Due to the complex nature of the safe operation of a motor vehicle, and considering the demands of integrating changing environmental conditions, and visual, cognitive, and physical skills, successful completion of this program is not a guarantee of safe driving in the future. ASSESSMENT OF INSTRUMENTAL ADL AND COMMUNITY MOBILITY: Zain Vences presents with the diagnosis of moderate late onset Alzheimer's dementia. This patient presents with impairments of 'S CONCERNS RELATED TO DRIVING BEHAVIOR, SEVERE IMPAIRMENT WITH SHORT BLESSED COGNITIVE SCREEN WHILE DECREASED ORIENTATION/CONCENTRATION/RECALL MEMORY, DECREASED AUDITORY ATTENTION SKILLS, SIGNIFICANTLY SLOWED PERFORMANCE ON TRAILMAKING B FOR ALTERNATING ATTENTION SKILLS, SLOWED AVERAGE VISUAL PROCESSING SPEED ON VISUAL PERCEPTUAL SCREENING, CONCERNS RELATED TO PROBLEM SOLVING/JUDGEMENT/SAFETY AWARENESS/INSIGHT, SLIGHTLY SLOWED AVERAGE SIMULATED BRAKE REACTION DISTANCE. RECOMMENDATIONS: ADL/IADL Recommendations: ongoing support and assist from , family, friends as has been provided; do recommend that he be with other responsible person when in public due to his vulnerability related to his cognitive deficits which his is in agreement with Driving Recommendations: REFRAIN FROM DRIVING WITH DRIVING CESSATION INDICATED AND DISCUSSED; THIS THERAPIST WILL PROVIDE PHYSICIAN WITH THE [facility] REPORTING INFORMATION SO THAT THE LICENSE SUSPENSION PROCESS CAN BE INITIATED Recommended Complete Eye Exam: Yes Planned Interventions, Frequency, and Duration: Current Frequency: Discontinue Therapy Services Duration: 1 visit Total Number of Visits Planned: 0 Patient demonstrates fair understanding of results which were discussed and agreed upon by patient/family. Billing: Total Treatment Time Minutes (timed/untimed) 145 Evaluation - Moderate Complexity (07208) Self Care / Home Management (57292): 1:1 time: 45 minutes (3 units: 38-52 mins) Community /Work Re-integration (98953): 1:1 time: 40 minutes (3 units: 38-52 mins) Session Start Time : 0950 Session Stop Time : 1215 Total time: 145 minutes Abby Damon, OT/L, CDRS, LDI Certified Manager Benefit Locator REHABILITATION AND SPORTS THERAPY OCCUPATIONAL THERAPY DISCONTINUANCE OF CARE PLAN OF CARE UPDATE: Assessment: Zain Vences is discontinued from Occupational Therapy services due to no further skilled OT services indicated . Patient was seen for 1 visits from Start of Care Date: 01/14/25 and treatment included: Manager Benefit rehab evaluation. No specialty comments available. PROMIS Scales 01/13/2025 Higher is Better Self-Eff Symptom - T Score 57 (Average) Self-Eff Symptom - Percentile 76 Cognitve Function - T Score 53 (within normal limits) Cognitive Function - Percentile 62 Proxy-reported T-Score and Percentile Interpretation T-scores: mean of general population = 50. 5 points is clinically meaningfully difference Percentiles provide an indication of how the patient's score ranks in relation to the general population. Higher percentile rankings indicate better function/quality of life. 50th percentile is the average of the general population and indicates half of respondents had a worse score. Abby Damon, OT/L, CDRS, LDI documented in this encounter [facility] 01-01-2025 Note HNO ID: [id number] Author: DIVINE TAM MA Service: ? Author Type: Online Tutor Type: Progress Notes Filed: 01/01/2025 11:04 Note Text: POPULATION HEALTH NAVIGATION OUTREACH Action/FYI Contacted patient to schedule HCC care gaps and health maintenance. 1st attempt: Left message with my direct number 2nd attempt: My Chart message sent Topic Due (Y or N) Comments Annual Wellness Exam Yes Due 02/2025 PCP Follow up No Colorectal Cancer Screening No A1C No HTN/Controlling BP No HCC No Updated appointment notes No Reason for Outreach Care Gap/HCC or Scheduling Wellness Visits Care Gaps due: Medicare Annual Wellness Visit Patient Contacted: Unable or unnecessary to reach patient: Left message afterBOT message sent Navigation Signature: Divine Tam MA January 01, 2025 11:03 AM [facility] 01-01-2025 History of Present illness Narrative POPULATION HEALTH NAVIGATION OUTREACH Action/FYI Contacted patient to schedule HCC care gaps and health maintenance. 1st attempt: Left message with my direct number 2nd attempt: My Chart message sent Topic Due (Y or N) Comments Annual Wellness Exam Yes Due 02/2025 PCP Follow up No Colorectal Cancer Screening No A1C No HTN/Controlling BP No HCC No Updated appointment notes No Reason for Outreach Care Gap/HCC or Scheduling Wellness Visits Care Gaps due: Medicare Annual Wellness Visit Patient Contacted: Unable or unnecessary to reach patient: Left message afterBOT message sent Navigation Signature: Divine Tam MA January 01, 2025 11:03 AM documented in this encounter [facility] 01-01-2025 Note Patient Outreach (MYCHAL MONET) ZAIN VENCES ([id number]) 1950 M Date Time Provider Department 01/01/25 DIVINE TAM NETDARIUSV During your visit today, we recorded the following information about you: Divine Tam MA 01/01/2025 11:04 AM Signed POPULATION HEALTH NAVIGATION OUTREACH Action/FYI Contacted patient to schedule HCC care gaps and health maintenance. 1st attempt: Left message with my direct number 2nd attempt: My Chart message sent Topic Due (Y or N) Comments Annual Wellness Exam Yes Due 02/2025 PCP Follow up No Colorectal Cancer Screening No A1C No HTN/Controlling BP No HCC No Updated appointment notes No Reason for Outreach Care Gap/HCC or Scheduling Wellness Visits Care Gaps due: Medicare Annual Wellness Visit Patient Contacted: Unable or unnecessary to reach patient: Left message [email or web address] message sent Navigation Signature: Divine Tam MA January 01, 2025 11:03 AM Allergies As of Date: 01/01/2025 Noted Allergy Reaction LATEX 07/21/2010 14 - Other: See Comments Comments: burning on the face SEASONAL ALLERGIES 11/20/2024 3 - Cough Date Reviewed: 11/20/2024 Reviewed by: Natalia Ramírez LPN - Fully Assessed Reason for Visit: Population Health Navigation Outreach [3910] Cmt: Hanna/Workbench/ACO Prescriptions as of 01/01/2025 - amLODIPine (NORVASC) 5 mg tablet Take 1 tablet by mouth once daily. - losartan (COZAAR) 50 mg tablet Take 1 tablet by mouth once daily. - Lecithin 1,200 mg cap Take 1,200 mg by mouth once daily. Problem List As Of Date 01/01/2025 Noted Resolved Anemia, unspecified [D64.9] Essential hypertension, benign [I10] Mixed hyperlipidemia [E78.2] Seborrheic dermatitis, unspecified [L21.9] Encounter Status:Closed by DIVINE TAM on 01/01/25 [facility] 12-22-2024 Telephone encounter Note Patient has been identified by name and date of : Yes Patient phones for refill(s): Requested Prescriptions Pending Prescriptions Disp Refills amLODIPine (NORVASC) 5 mg tablet 30 tablet 1 Sig: Take 1 tablet by mouth once daily. Date of last office visit in primary care: 10/20/2024 Date of next office visit in primary care: Visit date not found Please advise. Thank you. Mare Maxwell LPN. [facility] 12-22-2024 Miscellaneous Notes Patient has been identified by name and date of : Yes Patient phones for refill(s): Requested Prescriptions Pending Prescriptions Disp Refills amLODIPine (NORVASC) 5 mg tablet 30 tablet 1 Sig: Take 1 tablet by mouth once daily. Date of last office visit in primary care: 10/20/2024 Date of next office visit in primary care: Visit date not found Please advise. Thank you. Mare Maxwell LPN. documented in this encounter [facility] 11-21-2024 Telephone encounter Note Hold losartan. Recheck labs and have office visit for BP check in 2-4 weeks. Monitor BP at home. Thank you Radha Morales APRN.CNP [facility] 11-21-2024 Miscellaneous Notes Hold losartan. Recheck labs and have office visit for BP check in 2-4 weeks. Monitor BP at home. Thank you Radha Morales APRN.CNP Patient returned call and went over results, notes from Radha Morales SENIOR COGNOS DEVELOPER, said in back ground he takes Losartan 50 mg one half tablet every evening. His blood pressure was 112/82 said was just at an appt. Left message for return call. Potassium still elevated. Please verify how much losartan patient is taking and what current BP at home is. Thank you Radha Morales APRN.CNP documented in this encounter [facility] 11-21-2024 Telephone encounter Note Patient returned call and went over results, notes from Radha Morales SENIOR COGNOS DEVELOPER, said in back ground he takes Losartan 50 mg one half tablet every evening. His blood pressure was 112/82 said was just at an appt. [facility] 11-21-2024 Telephone encounter Note Left message for return call. [facility] 11-21-2024 Telephone encounter Note Potassium still elevated. Please verify how much losartan patient is taking and what current BP at home is. Thank you Radha Morales APRN.[employer]OR [employer]ER [facility] 11-20-2024 Note HNO ID: [id number] Author: TESSY FIELDS MD Service: ? Author Type: Physician Type: Progress Notes Filed: 11/20/2024 17:07 Note Text: Reason for Visit Follow up HPI Zain Vences is a 74-year-old male with a history of dementia, hyperkalemia, and hypertension, accompanied by his , presenting for follow-up. Zain's reports a decline in his MoCA score from 17 to 15. He denies having Alzheimer's disease, attributing his cognitive issues to dementia. He continues to drive regularly without significant incidents, though his expresses concerns about his safety. He remains active, engaging in music and gardening, and performs household tasks such as laundry and cleaning. 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 His handles finances and medication management. He has been taking losartan and amlodipine for hypertension, with stable readings around 120/84 mmHg. Despite dietary adjustments to reduce potassium intake, his hyperkalemia persists. He denies chest pain, dyspnea, or leg swelling during exercise. He has lost weight intentionally through dietary changes, including apple cider vinegar, and denies incontinence, recent falls, or accidents. He reports no changes in vision, hearing, or behavior, and denies anger or upset feelings. He experiences occasional muscle pain from exercise, which has improved. Social History Tobacco Use Smoking status: Never Smokeless tobacco: Never Substance Use Topics Alcohol use: Not Currently Comment: Once every once in a while Drug use: No Past medical history, appointments, medications, allergies reviewed. Pertinent Lab/Diagnostic Studies are reviewed and discussed today Current Outpatient Medications: amLODIPine (NORVASC) 5 mg tablet losartan (COZAAR) 50 mg tablet Lecithin 1,200 mg cap Health Maintenance Depression Screening Anxiety Screening Hepatitis C Screening Pneumococcal Vaccine: 50+(2 of 2 - PCV) DTaP,Tdap,Td Vaccine(4 - Td or Tdap) Advance Directive Discussion Covid-19 Vaccine( season)@ Review Of Systems Constitutional: (+) weight loss Eyes: (-) vision change Ears/Nose/Mouth/Throat: (-) hearing difficulty Cardiovascular: (-) chest pain Respiratory: (-) shortness of breath Gastrointestinal: (-) constipation, (-) diarrhea, (-) bowel incontinence Genitourinary: (-) urinary incontinence Musculoskeletal: (-) falls Psychiatric: (-) irritability Physical Exam BP 120/84 Pulse (!) 52 Resp 16 Wt 84.5 kg (186 lb 3.2 oz) BMI 27.10 kg/m? GENERAL: NAD, alert and oriented. SKIN: Unremarkable, no rash or skin lesions. HEAD: Normocephalic. EYES: PERRLA, EOMI, conjunctiva clear. EARS: External ears normal, canals clear, TM's normal. NOSE/SINUSES: Nares normal. Septum midline. OROPHARYNX: Lips, mucosa, and tongue normal, good dentition. No oral lesions noted. NECK: Supple, no lymphadenopathy, normal thyroid, no carotid bruits. LUNGS: Clear to auscultation bilaterally, no wheezes/rhonchi/rales. HEART: Regular rate and rhythm, no murmurs. No ectopy. EXTREMITIES: Normal, no deformities, no skin discoloration, very mild edema. NEURO: Awake, alert and oriented x3, cranial nerves II-XII grossly intact, normal gait, no involuntary motions. Labs: - Potassium: 5.2 mmol/L (above normal) - Glucose: Elevated - Hemoglobin: Normal Tests: - MoCA: - MoCA: Assessment and Plan 1. Hyperkalemia Potassium levels remain slightly above normal despite dietary modifications. Patient has a history of naturally high potassium levels. - Ordered EKG to assess for any cardiac changes related to hyperkalemia. - Monitor potassium levels; avoid dehydration. 2. 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 Patient exhibits mild cognitive impairment but remains functional in daily activities such as driving, laundry, and social interactions. No significant behavioral changes or anxiety noted. - Discussed the nature of dementia and its progression. - Recommended bus driver's evaluation at [place] to assess driving safety. - Continue current management and monitor for any changes in cognitive function or behavior. 3. Weight loss Intentional weight loss from 194 to 186 lbs through dietary changes and apple cider vinegar use. - Advised to maintain current weight and avoid further weight loss. 4. Essential (primary) hypertension Blood pressure well-controlled with current medication regimen, including losartan and amlodipine. Potassium levels remain slightly elevated. - Considered adding hydrochlorothiazide to manage potassium levels but decided against it due to potential dehydration risks. - Continue current antihypertensive medications. - Monitor blood pressure and potassium levels regularly. Voice recognition software was used to compose this office note. Please excuse any unintended typograp (more content not included)... [facility] 11-20-2024 History of Present illness Narrative Reason for Visit Follow up HPI Zain Vences is a 74-year-old male with a history of dementia, hyperkalemia, and hypertension, accompanied by his , presenting for follow-up. Zain's reports a decline in his MoCA score from 17 to 15. He denies having Alzheimer's disease, attributing his cognitive issues to dementia. He continues to drive regularly without significant incidents, though his expresses concerns about his safety. He remains active, engaging in music and gardening, and performs household tasks such as laundry and cleaning. 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 His handles finances and medication management. He has been taking losartan and amlodipine for hypertension, with stable readings around 120/84 mmHg. Despite dietary adjustments to reduce potassium intake, his hyperkalemia persists. He denies chest pain, dyspnea, or leg swelling during exercise. He has lost weight intentionally through dietary changes, including apple cider vinegar, and denies incontinence, recent falls, or accidents. He reports no changes in vision, hearing, or behavior, and denies anger or upset feelings. He experiences occasional muscle pain from exercise, which has improved. Social History Tobacco Use Smoking status: Never Smokeless tobacco: Never Substance Use Topics Alcohol use: Not Currently Comment: Once every once in a while Drug use: No Past medical history, appointments, medications, allergies reviewed. Pertinent Lab/Diagnostic Studies are reviewed and discussed today Current Outpatient Medications: amLODIPine (NORVASC) 5 mg tablet losartan (COZAAR) 50 mg tablet Lecithin 1,200 mg cap Health Maintenance Depression Screening Anxiety Screening Hepatitis C Screening Pneumococcal Vaccine: 50+(2 of 2 - PCV) DTaP,Tdap,Td Vaccine(4 - Td or Tdap) Advance Directive Discussion Covid-19 Vaccine( season)@ Review Of Systems Constitutional: (+) weight loss Eyes: (-) vision change Ears/Nose/Mouth/Throat: (-) hearing difficulty Cardiovascular: (-) chest pain Respiratory: (-) shortness of breath Gastrointestinal: (-) constipation, (-) diarrhea, (-) bowel incontinence Genitourinary: (-) urinary incontinence Musculoskeletal: (-) falls Psychiatric: (-) irritability Physical Exam BP 120/84 Pulse (!) 52 Resp 16 Wt 84.5 kg (186 lb 3.2 oz) BMI 27.10 kg/m GENERAL: NAD, alert and oriented. SKIN: Unremarkable, no rash or skin lesions. HEAD: Normocephalic. EYES: PERRLA, EOMI, conjunctiva clear. EARS: External ears normal, canals clear, TM's normal. NOSE/SINUSES: Nares normal. Septum midline. OROPHARYNX: Lips, mucosa, and tongue normal, good dentition. No oral lesions noted. NECK: Supple, no lymphadenopathy, normal thyroid, no carotid bruits. LUNGS: Clear to auscultation bilaterally, no wheezes/rhonchi/rales. HEART: Regular rate and rhythm, no murmurs. No ectopy. EXTREMITIES: Normal, no deformities, no skin discoloration, very mild edema. NEURO: Awake, alert and oriented x3, cranial nerves II-XII grossly intact, normal gait, no involuntary motions. Labs: - Potassium: 5.2 mmol/L (above normal) - Glucose: Elevated - Hemoglobin: Normal Tests: - MoCA: - MoCA: Assessment and Plan 1. Hyperkalemia Potassium levels remain slightly above normal despite dietary modifications. Patient has a history of naturally high potassium levels. - Ordered EKG to assess for any cardiac changes related to hyperkalemia. - Monitor potassium levels; avoid dehydration. 2. 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 Patient exhibits mild cognitive impairment but remains functional in daily activities such as driving, laundry, and social interactions. No significant behavioral changes or anxiety noted. - Discussed the nature of dementia and its progression. - Recommended bus driver's evaluation at [place] to assess driving safety. - Continue current management and monitor for any changes in cognitive function or behavior. 3. Weight loss Intentional weight loss from 194 to 186 lbs through dietary changes and apple cider vinegar use. - Advised to maintain current weight and avoid further weight loss. 4. Essential (primary) hypertension Blood pressure well-controlled with current medication regimen, including losartan and amlodipine. Potassium levels remain slightly elevated. - Considered adding hydrochlorothiazide to manage potassium levels but decided against it due to potential dehydration risks. - Continue current antihypertensive medications. - Monitor blood pressure and potassium levels regularly. Voice recognition software was used to compose this office note. Please excuse any unintended typographical errors. Recording using [employer] software for draft documentation of the visit was discussed with the patient/authorized territory representative; all questions welcomed and answered. Patient/authorized territory representative agreed to proceed Tessy Fields MD documented in this encounter [facility] 11-20-2024 Instructions Tessy Fields MD - 11/20/2024 11:52 AM EDT We discussed your dementia: - Your MOCA score today was 15/30, which is slightly lower than your previous score of 17/30. This indicates progression of your dementia. - You do not have Alzheimer's disease, but you do have dementia. This distinction does not change your current treatment or management plan. - Continue following a diet that supports brain health if it is helpful for you, but do not feel restricted if it is not improving your quality of life. Enjoy the foods you like, including chocolate in moderation. - We discussed your driving. To ensure safety, I recommend a driving evaluation at [place] or another center that offers this service. If you pass, it will confirm that it is safe for you to continue driving. We discussed your potassium levels and blood pressure: - Your potassium level remains slightly above normal, but this is not a significant concern at this time. You have historically had higher potassium levels, and this is likely normal for you. - Your blood pressure is well-controlled at 120/84 with your current medications. Continue taking your medications as prescribed. - I performed an EKG today to monitor for any changes related to your potassium levels. If there are any concerns, I will contact you. - Please continue to drink more water throughout the day to stay hydrated, as this is important for your overall health. We discussed your medications: - You are currently taking Norvasc (amlodipine) and losartan for blood pressure management. Continue these as prescribed. - You are no longer taking Crestor (rosuvastatin). I have removed this from your medication list. - You are managing your medications well with the weekly pillbox system. Continue this routine. We discussed your weight: - You have intentionally lost weight, going from 194 lbs to 186 lbs. This is a healthy weight, and I recommend maintaining your current weight without further loss. We discussed your overall health and activities: - You have not experienced any falls, chest pain, shortness of breath, or swelling in your legs. Continue your current level of activity, including gardening and light exercise. - You are managing daily tasks well, including laundry and pie bottomer. Continue these activities as they are beneficial for your independence and well-being. Follow-up: - Complete the driving evaluation as discussed. - I will review your EKG results and contact you if there are any concerns. - Please continue monitoring your blood pressure and potassium levels as we have been doing. Let me know if you have any new concerns or questions. documented in this encounter [facility] 10-20-2024 Note HNO ID: [id number] Author: RADHA MORALES APRN.[employer] Service: ? Author Type: Nurse Practitioner Type: Progress Notes Filed: 10/20/2024 16:13 Note Text: CC: Patient presents with: Recheck: BP follow up HPI Zain Vences is a 74 year old male who presents today for blood pressure follow up. Recording using [employer] software for draft documentation of the visit was discussed with the patient/authorized territory representative; all questions welcomed and answered. Patient/authorized territory representative agreed to proceed Hypertension: - Currently taking losartan 50 mg and amlodipine 2.5 mg. - Admits to inconsistent adherence to medication regimen. - Typically takes medication at night. - Denies chest pain, headaches, palpitations, edema, or dyspnea. Hyperkalemia: - Recent potassium level: 5.2 mEq/L. Has been improving with holding MVI and dietary changes. - Discontinued multivitamin containing potassium. - Has reduced intake of high-potassium foods. 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 - Reports a healthy diet. REVIEW OF SYSTEMS See HPI PAST MEDICAL HISTORY Diagnosis Date Anemia, unspecified Essential hypertension, benign Internal hemorrhoids without mention of complication Mixed hyperlipidemia Seborrheic dermatitis, unspecified PAST SURGICAL HISTORY Procedure Laterality Date COLONOSCOPY FLX DX W/COLLJ SPEC WHEN PFRMD 09/08/2010 COLONOSCOPY FLX DX W/COLLJ SPEC WHEN PFRMD 10/05/2020 ALLERGIES Latex MEDICATIONS amLODIPine (NORVASC) 5 mg tablet Take 1 tablet by mouth once daily. losartan (COZAAR) 50 mg tablet Take 1 tablet by mouth once daily. rosuvastatin (CRESTOR) 10 mg tablet Take 1 tablet by mouth once daily. Lecithin 1,200 mg cap Take 1,200 mg by mouth once daily. FAMILY HISTORY Problem Relation Age of Onset Breast Cancer Mother Heart disease Mother other (phelbitis) Father other (Pulmonary Embolism) Father other (multiple sclerosis) Sister Prostate Cancer Brother Social History Tobacco Use Smoking status: Never Smokeless tobacco: Never Substance Use Topics Alcohol use: Not Currently Comment: Once every once in a while Drug use: No PHYSICAL EXAM BP 134/78 Pulse (!) 57 Resp 16 Wt 86.2 kg (190 lb) SpO2 96% BMI 27.66 kg/m? General Appearance: well appearing, in no acute distress, alert Eyes: conjunctiva pink and moist, no icterus, sclera white, non-injected Lungs: Lungs clear to auscultation. No wheezing, rhonchi, rales. Heart: RRR without murmur, gallop, or rubs. No ectopy Health maintenance reviewed with patient: Depression Screening Never done Anxiety Screening Never done Hepatitis C Screening Never done Pneumococcal Vaccine: 50+(2 of 2 - PCV) due on 01/20/2016 DTaP,Tdap,Td Vaccine(4 - Td or Tdap) due on 01/15/2019 Advance Directive Discussion due on 06/11/2024 Covid-19 Vaccine() due on 08/31/2024 BP Controlled (<130/80) due on 07/23/2025 Annual PCP Team Chronic Disease Visit due on 10/20/2025 Diabetes Screening due on 10/17/2027 Lipid Screening due on 07/23/2029 Colorectal Cancer Screening due on 10/05/2030 Influenza Vaccine Completed RSV Vaccine Completed Shingrix Vaccine Completed DATA REVIEWED: Most recent labs Assessment/Plan 1. Essential hypertension, benign (I10) - Currently on losartan 50 mg and amlodipine 2.5 mg. - Non-adherence to medication regimen noted; medications will be monitored by spouse. - Increased amlodipine to 5 mg daily; prescription for 30 tablets sent to [facility] in [place]. - Decreased losartan to 25 mg daily; instructed to cut the 50 mg tablet in half. to manage - Advised to monitor blood pressure daily, ideally in the morning after using the bathroom and before consuming caffeine or engaging in activities. - Target blood pressure is consistently less than 130/80 mmHg. - Follow-up in 2-4 weeks to assess blood pressure control and medication tolerance. 2. Hyperkalemia (E87.5) - Current potassium level is 5.2 mmol/L (normal range: 3.5-5.1 mmol/L). - Discontinued multivitamin containing potassium. - Discussed that losartan can contribute to elevated potassium levels - Will re-evaluate potassium levels in 2-4 weeks; lab order placed for potassium and kidney function tests. - No dietary changes recommended at this time; continue current diet. - Follow-up appointment scheduled with Dr. Fields in 2-4 weeks to review lab results and adjust treatment as necessary. Prescription instructions reviewed with patient as applicable. Potential red flag symptoms discussed with the patient. Reviewed appropriate action plan to take if red flag symptoms occur. Patient agreeable to treatment plan. Radha Morales APRN.[facility] 10-20-2024 History of Present illness Narrative CC: Patient presents with: Recheck: BP follow up HPI Zain Vences is a 74 year old male who presents today for blood pressure follow up. Recording using [employer] software for draft documentation of the visit was discussed with the patient/authorized territory representative; all questions welcomed and answered. Patient/authorized territory representative agreed to proceed Hypertension: - Currently taking losartan 50 mg and amlodipine 2.5 mg. - Admits to inconsistent adherence to medication regimen. - Typically takes medication at night. - Denies chest pain, headaches, palpitations, edema, or dyspnea. Hyperkalemia: - Recent potassium level: 5.2 mEq/L. Has been improving with holding MVI and dietary changes. - Discontinued multivitamin containing potassium. - Has reduced intake of high-potassium foods. 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 - Reports a healthy diet. REVIEW OF SYSTEMS See HPI PAST MEDICAL HISTORY Diagnosis Date Anemia, unspecified Essential hypertension, benign Internal hemorrhoids without mention of complication Mixed hyperlipidemia Seborrheic dermatitis, unspecified PAST SURGICAL HISTORY Procedure Laterality Date COLONOSCOPY FLX DX W/COLLJ SPEC WHEN PFRMD 09/08/2010 COLONOSCOPY FLX DX W/COLLJ SPEC WHEN PFRMD 10/05/2020 ALLERGIES Latex MEDICATIONS amLODIPine (NORVASC) 5 mg tablet Take 1 tablet by mouth once daily. losartan (COZAAR) 50 mg tablet Take 1 tablet by mouth once daily. rosuvastatin (CRESTOR) 10 mg tablet Take 1 tablet by mouth once daily. Lecithin 1,200 mg cap Take 1,200 mg by mouth once daily. FAMILY HISTORY Problem Relation Age of Onset Breast Cancer Mother Heart disease Mother other (phelbitis) Father other (Pulmonary Embolism) Father other (multiple sclerosis) Sister Prostate Cancer Brother Social History Tobacco Use Smoking status: Never Smokeless tobacco: Never Substance Use Topics Alcohol use: Not Currently Comment: Once every once in a while Drug use: No PHYSICAL EXAM BP 134/78 Pulse (!) 57 Resp 16 Wt 86.2 kg (190 lb) SpO2 96% BMI 27.66 kg/m General Appearance: well appearing, in no acute distress, alert Eyes: conjunctiva pink and moist, no icterus, sclera white, non-injected Lungs: Lungs clear to auscultation. No wheezing, rhonchi, rales. Heart: RRR without murmur, gallop, or rubs. No ectopy Health maintenance reviewed with patient: Depression Screening Never done Anxiety Screening Never done Hepatitis C Screening Never done Pneumococcal Vaccine: 50+(2 of 2 - PCV) due on 01/20/2016 DTaP,Tdap,Td Vaccine(4 - Td or Tdap) due on 01/15/2019 Advance Directive Discussion due on 06/11/2024 Covid-19 Vaccine() due on 08/31/2024 BP Controlled (<130/80) due on 07/23/2025 Annual PCP Team Chronic Disease Visit due on 10/20/2025 Diabetes Screening due on 10/17/2027 Lipid Screening due on 07/23/2029 Colorectal Cancer Screening due on 10/05/2030 Influenza Vaccine Completed RSV Vaccine Completed Shingrix Vaccine Completed DATA REVIEWED: Most recent labs Assessment/Plan 1. Essential hypertension, benign (I10) - Currently on losartan 50 mg and amlodipine 2.5 mg. - Non-adherence to medication regimen noted; medications will be monitored by spouse. - Increased amlodipine to 5 mg daily; prescription for 30 tablets sent to [facility] in [place]. - Decreased losartan to 25 mg daily; instructed to cut the 50 mg tablet in half. to manage - Advised to monitor blood pressure daily, ideally in the morning after using the bathroom and before consuming caffeine or engaging in activities. - Target blood pressure is consistently less than 130/80 mmHg. - Follow-up in 2-4 weeks to assess blood pressure control and medication tolerance. 2. Hyperkalemia (E87.5) - Current potassium level is 5.2 mmol/L (normal range: 3.5-5.1 mmol/L). - Discontinued multivitamin containing potassium. - Discussed that losartan can contribute to elevated potassium levels - Will re-evaluate potassium levels in 2-4 weeks; lab order placed for potassium and kidney function tests. - No dietary changes recommended at this time; continue current diet. - Follow-up appointment scheduled with Dr. Fields in 2-4 weeks to review lab results and adjust treatment as necessary. Prescription instructions reviewed with patient as applicable. Potential red flag symptoms discussed with the patient. Reviewed appropriate action plan to take if red flag symptoms occur. Patient agreeable to treatment plan. Radha Morales APRN.CNP documented in this encounter [facility] 10-02-2024 Telephone encounter Note Left message for return call. [facility] 10-02-2024 Miscellaneous Notes Left message for return call. Check potassium 1-2 weeks after the decrease in losartan. Thank you Radha Morales APRN.CNP Patient's calls back and schedules appointment with Radha on 10/20/2024. is still concerned about patient's potassium level being high and that patient is on losartan potassium. Losartan potassium was cut in have to 50 mg however is still worried that this is too much potassium. Advised that patient can discuss this at appointment. asking If potassium levels can be checked again prior to appointment? Please review and advise, Carina Kumar RN Pt called and is notified of providers message and instructions. Pt voices understanding. Pt is going to call back when his is home to make the appointment. Loreta Payne RN Meds sent as recommended. Follow up in 4 weeks for BP evaluation. Thank you Radha Morales APRN.[employer] Patient agreeable, please send to [facility]. Let us decrease the losartan and add a small dose of norvasc. 2.5, recheck in 1 month Please let me know if this sounds good for you, will send norvasc if patient agrees About the potassium, yes it is high, but not too high, if I were you, I would not be worried but would work on above suggestion Regards, Tessy Fields MD Patient phoned to let pcp know he is taking losartan 100 mg daily for a few months. Reports his potassium has been consistently high for a few months. Latest potassium was 5.4 yesterday. Patient asking if pcp can change his BP medicine to something else as this may be the cause. Please advise and [facility] [place] documented in this encounter [facility] 10-01-2024 Telephone encounter Note Check potassium 1-2 weeks after the decrease in losartan. Thank you Radha Morales APRN.CNP [facility] 10-01-2024 Telephone encounter Note Patient's calls back and schedules appointment with Radha on 10/20/2024. is still concerned about patient's potassium level being high and that patient is on losartan potassium. Losartan potassium was cut in have to 50 mg however is still worried that this is too much potassium. Advised that patient can discuss this at appointment. asking If potassium levels can be checked again prior to appointment? Please review and advise, Carina Kumar RN [facility] 09-26-2024 Telephone encounter Note Pt called and is notified of providers message and instructions. Pt voices understanding. Pt is going to call back when his is home to make the appointment. Loreta Payne RN [facility] 09-26-2024 Telephone encounter Note Meds sent as recommended. Follow up in 4 weeks for BP evaluation. Thank you Radha Morales APRN.CNP [facility] 09-26-2024 Telephone encounter Note Patient agreeable, please send to [facility]. [facility] 09-26-2024 Telephone encounter Note Let us decrease the losartan and add a small dose of norvasc. 2.5, recheck in 1 month Please let me know if this sounds good for you, will send [facility] if patient agrees About the potassium, yes it is high, but not too high, if I were you, I would not be worried but would work on above suggestion Tessy Looney MD [facility] 09-26-2024 Telephone encounter Note Patient phoned to let pcp know he is taking losartan 100 mg daily for a few months. Reports his potassium has been consistently high for a few months. Latest potassium was 5.4 yesterday. Patient asking if pcp can change his BP medicine to something else as this may be the cause. Please advise and phone pt with reply. [facility] in [place]. [facility] 08-25-2024 Telephone encounter Note This is what was told to patient wanted to make sure it was correct. [facility] 08-25-2024 Miscellaneous Notes This is what was told to patient wanted to make sure it was correct. Apologies. Yes, I want him to take the losartan and not the MVI Regards, Tessy Fields MD Pt called and is notified of providers message and instructions. Pt voices understanding. Told the Pt not to hold the Losartan potassium. Making sure this is correct as the provider put to not hold the potassium. Loreta Payne RN Hold the MVI please, not the potassium, recheck in a months time. Half the bp readings are good. Regards, Tessy Fields MD 08/22/24 3:00 PM Note Pt called and is notified of providers results and instructions. Pt voices understanding. Pt states he has been taking the Losartan since 04/17/24, but he was taking 25 mg BID and at his last appointment he was increased to 100 mg daily ay HS. Pt also takes Centrum Silver and it has 80 mg K+. I let Pt know provider would call and let him know if she wants him to hold Losartan or [place]. [place] [address]2831/80 08/8133/83 08/4139/83 08/3123/81 Pts is going to see if she can upload the rest of the Pts BPs to [employer]. She states she can send them to an e-mail. Please call and advise. Loreta Payne RN 08/22/24 2:20 PM Note Left message to return call. Blanche Eldridge LPN ----- Message from Tessy Fields MD sent at 08/21/2024 4:32 PM EDT ----- I am not sure why his potassium is on the higher side but it is mildly elevated. I think losartan which is a new medication for him could do that Please confirm if he is taking the medication and his bp is doing better. If so them we may have to stop the medication Also are there any supplement of potassium that he is taking? Regards, Tessy Fields MD documented in this encounter [facility] 08-25-2024 Telephone encounter Note Apologies. Yes, I want him to take the losartan and not the MVI Tessy Looney MD [facility] 08-25-2024 Telephone encounter Note Pt called and is notified of providers message and instructions. Pt voices understanding. Told the Pt not to hold the Losartan potassium. Making sure this is correct as the provider put to not hold the potassium. Loreta Payne RN [facility] 08-25-2024 Telephone encounter Note Hold the MVI please, not the potassium, recheck in a months time. Half the bp readings are good. Tessy Looney MD [facility] 08-25-2024 Telephone encounter Note PLEASE SEE TE 08/25/24. Emily Macdonald MA [facility] 08-25-2024 Telephone encounter Note 08/22/24 3:00 PM Note Pt called and is notified of providers results and instructions. Pt voices understanding. Pt states he has been taking the Losartan since 04/17/24, but he was taking 25 mg BID and at his last appointment he was increased to 100 mg daily ay HS. Pt also takes Centrum Silver and it has 80 mg K+. I let Pt know provider would call and let him know if she wants him to hold Losartan [place]. [place] [address]/80 08/8133/83 08/4139/08/3123/ Pts is going to see if she can upload the rest of the Pts BPs to [employer]. She states she can send them to an e-mail. Please call and advise. Loreta Payne RN [facility] 08-25-2024 Telephone encounter Note 08/22/24 2:20 PM Note Left message to return call. Blanche Eldridge LPN [facility] 08-25-2024 Miscellaneous Notes PLEASE SEE TE 08/25/24. Emily Macdonald MA ----- Message from Tessy Fields MD sent at 08/21/2024 4:32 PM EDT ----- I am not sure why his potassium is on the higher side but it is mildly elevated. I think losartan which is a new medication for him could do that Please confirm if he is taking the medication and his bp is doing better. If so them we may have to stop the medication Also are there any supplement of potassium that he is taking? Regards, Tessy Fields MD Pt called and is notified of providers results and instructions. Pt voices understanding. Pt states he has been taking the Losartan since 04/17/24, but he was taking 25 mg BID and at his last appointment he was increased to 100 mg daily ay HS. Pt also takes Centrum Silver and it has 80 mg K+. I let Pt know provider would call and let him know if she wants him to hold Losartan or Multi-vitamin. BP am 08/22 128/80 3/8 134/83 3/4 140/83 3/ 124/81 Pts is going to see if she can upload the rest of the Pts BPs to [employer]. She states she can send them to an e-mail. Please call and advise. Loreta Payne RN Left message to return call. ----- Message from Tessy Fields MD sent at 08/21/2024 4:32 PM EDT ----- I am not sure why his potassium is on the higher side but it is mildly elevated. I think losartan which is a new medication for him could do that Please confirm if he is taking the medication and his bp is doing better. If so them we may have to stop the medication Also are there any supplement of potassium that he is taking? Regards, Tessy Fields MD documented in this encounter [facility] 08-25-2024 Telephone encounter Note ----- Message from Tessy Fields MD sent at 08/21/2024 4:32 PM EDT ----- I am not sure why his potassium is on the higher side but it is mildly elevated. I think losartan which is a new medication for him could do that Please confirm if he is taking the medication and his bp is doing better. If so them we may have to stop the medication Also are there any supplement of potassium that he is taking? Regards, Tessy Fields MD [facility] 08-25-2024 Telephone encounter Note ----- Message from Tessy Fields MD sent at 08/21/2024 4:32 PM EDT ----- I am not sure why his potassium is on the higher side but it is mildly elevated. I think losartan which is a new medication for him could do that Please confirm if he is taking the medication and his bp is doing better. If so them we may have to stop the medication Also are there any supplement of potassium that he is taking? Regards, Tessy Fields MD [facility] 08-22-2024 Telephone encounter Note Pt called and is notified of providers results and instructions. Pt voices understanding. Pt states he has been taking the Losartan since 04/17/24, but he was taking 25 mg BID and at his last appointment he was increased to 100 mg daily ay HS. Pt also takes Centrum Silver and it has 80 mg K+. I let Pt know provider would call and let him know if she wants him to hold Losartan or Multi-vitamin. BP am 08/22 128/80 3 134/83 3/ 140/83 08/11 124/81 Pts is going to see if she can upload the rest of the Pts BPs to afterBOT. She states she can send them to an e-mail. Please call and advise. Loreta Payne RN [facility] 08-22-2024 Telephone encounter Note Left message to return call. T [facility] 08-22-2024 Telephone encounter Note ----- Message from Tessy Fields MD sent at 08/21/2024 4:32 PM EDT ----- I am not sure why his potassium is on the higher side but it is mildly elevated. I think losartan which is a new medication for him could do that Please confirm if he is taking the medication and his bp is doing better. If so them we may have to stop the medication Also are there any supplement of potassium that he is taking? Regards, Tessy Fields MD [facility] 07-31-2024 Telephone encounter Note The patient has been identified by name and date of : Yes Caregiver verified no other encounters exist for this prescription request: Yes Caregiver confirmed with patient/requestor that no other refills are due, in the near future, with this provider at this time: Yes The last office visit in the department: 07/24/2024 Does the patient have a future office visit with this provider/department: 11/20/2024 Requested Prescriptions Pending Prescriptions Disp Refills losartan (COZAAR) 100 mg tablet 90 tablet 3 Sig: Take 1 tablet by mouth once daily. Patient needs prescription sent to [facility]. [facility] is no longer a preferred pharmacy. Lalitha Watts RN July 31, 2024 10:02 AM [facility] 07-31-2024 Miscellaneous Notes The patient has been identified by name and date of : Yes Caregiver verified no other encounters exist for this prescription request: Yes Caregiver confirmed with patient/requestor that no other refills are due, in the near future, with this provider at this time: Yes The last office visit in the department: 07/24/2024 Does the patient have a future office visit with this provider/department: 11/20/2024 Requested Prescriptions Pending Prescriptions Disp Refills losartan (COZAAR) 100 mg tablet 90 tablet 3 Sig: Take 1 tablet by mouth once daily. Patient needs prescription sent to [facility]. [facility] is no longer a preferred pharmacy. Lalitha Watts RN July 31, 2024 10:02 AM documented in this encounter [facility] 07-24-2024 Note HNO ID: [id number] Author: TESSY FIELDS MD Service: ? Author Type: Physician Type: Progress Notes Filed: 07/24/2024 12:15 Note Text: Reason for Visit Patient presents with: Follow Up: 03/19/24 MOCA completed, 04/17/24 SEBASTIAN Zain Vences is a 74 year old male who presents here today for Geriatric follow up. HPI Patient has a pertinent PMHx significant for Hypertension , hyperlipidemia. Anemia. He has been having memory issues for few years. History of mother who developed dementia in her late 80s. As part of evaluation we did an MRI of the brain and his hippocampal volumes are in the 1st percentile compared to age. He also has a lot of mild white matter disease. After knowing his diagnosis, he was a little stressed but is coping pretty well. He has a little thing going on he has been doing some cognitive exercises. His blood pressure has been over 130 most days in the house. He did not get his log bp but does agree that he he needs medication for control of bp. He spent a lot of tome today to try to understand his diagnosis and seems extremely hopeful that there will be a cure in the future. He was referencing the Lacanumab type of medications. He is in moderate dementia and may not be an appropriate candidate for it. We discussed starting him on aricept he will think about it. 07/24/2024: since the last visit he he started exercising, notes that they made some Improvements to diet. Memory is a little better. Diet that they are using are pomegranate juice, yogurt., eating more fish than they can. They are doing treadmill for around 15 or 20 mins. Lifting up weights. Does machines for his legs. Does shoulders. Bp log shows 2/5 of readings are high but the rest are normal. He does need some reminders to take medications. B-ADLs: (I=independent,A=assistance,D=depe ndent) ?Bathing: I Dressing: I Toileting: I Transferring:I, Continence: I, Feeding: I, (Carlos Index): 6 I-ADLs: Ability to use phone: I, Shopping: A Cooking: A- but historically has never done it. Housekeeping: he has kept house. Laundry: he can do in own laundry Transportation: I Medications: A Handle Finances: I (Aretha scale): 8 REVIEW OF SYSTEMS: Weight change/Appetite: monitoring weight, we discussed the need for weight stabilization. Hearing: no change Vision: no change Constipation, Diarrhea: no Incontinence: no Chest pain: No Edema: No Dyspnea: No Falls/injuries/accidents: No Health Maintenance Depression Screening Anxiety Screening Hepatitis C Screening BP Controlled (<130/80) Pneumococcal Vaccine: 65+(2 of 2 - PCV) DTaP,Tdap,Td Vaccine(4 - Td or Tdap) Advance Directive Discussion PAST MEDICAL HISTORY Diagnosis Date Anemia, unspecified Essential hypertension, benign Internal hemorrhoids without mention of complication Mixed hyperlipidemia Seborrheic dermatitis, unspecified Past medical history, appointments, medications, allergies reviewed. Pertinent Lab/Diagnostic Studies are reviewed and discussed today Current Outpatient Medications: losartan (COZAAR) 25 mg tablet rosuvastatin (CRESTOR) 10 mg tablet Lecithin 1,200 mg cap mv-min/folic/K1/lycopen/lutein (CENTRUM SILVER MEN ORAL) niacin 500 mg ORAL tablet Physical Exam BP 142/78 Pulse (!) 55 Ht 176.5 cm (5' 9.5) Wt 88 kg (194 lb) SpO2 96% BMI 28.24 kg/m? General appearance: Well appearing, alert, in no acute distress, well nourished. Skin: Skin color, texture, turgor normal, no suspicious rashes or lesions Head: Normocephalic, no masses, lesions, tenderness or abnormalities Eyes: Anicteric sclera. Pupils are equally round and reactive to light. Extraocular movements are intact. Lungs: Lungs clear to auscultation. No wheezing, rhonchi, rales Heart: RRR without murmur, gallop, or rubs. Extremities: No deformities, edema, skin discoloration, clubbing or cyanosis. Good capillary refill. ASSESSMENT/PLAN: 1. Mixed hyperlipidemia - ICD9: 272.2, ICD10: E78.2 (primary diagnosis) - Controlled - Counseled on healthy diet and regular exercise 2. Essential hypertension - ICD9: 401.9, ICD10: I10 - Controlled - Recommend home blood pressure monitoring, to bring results to next visit - Encouraged sodium restriction, DASH or Mediterranean diet - Recommend regular aerobic exercise 3. Mild late onset Alzheimer's dementia without behavioral disturbance, psychotic disturbance, mood disturbance, or anxiety (HCC) - ICD9: 331.0, 294.10, ICD10: G30.1, F02.A0 He is trying to eat mind diet and exercise. 4. Hyperkalemia - ICD9: 276.7, ICD10: E87.5 - BASIC METABOLIC PANEL Tessy Fields MD [facility] 07-24-2024 History of Present illness Narrative Reason for Visit Patient presents with: Follow Up: 03/19/24 MOCA completed, 04/17/24 SEBASTIAN Zain Vences is a 74 year old male who presents here today for Geriatric follow up. HPI Patient has a pertinent PMHx significant for Hypertension , hyperlipidemia. Anemia. He has been having memory issues for few years. History of mother who developed dementia in her late 80s. As part of evaluation we did an MRI of the brain and his hippocampal volumes are in the 1st percentile compared to age. He also has a lot of mild white matter disease. After knowing his diagnosis, he was a little stressed but is coping pretty well. He has a little thing going on he has been doing some cognitive exercises. His blood pressure has been over 130 most days in the house. He did not get his log bp but does agree that he he needs medication for control of bp. He spent a lot of tome today to try to understand his diagnosis and seems extremely hopeful that there will be a cure in the future. He was referencing the Lacanumab type of medications. He is in moderate dementia and may not be an appropriate candidate for it. We discussed starting him on aricept he will think about it. 07/24/2024: since the last visit he he started exercising, notes that they made some Improvements to diet. Memory is a little better. Diet that they are using are pomegranate juice, yogurt., eating more fish than they can. They are doing treadmill for around 15 or 20 mins. Lifting up weights. Does machines for his legs. Does shoulders. Bp log shows 2/5 of readings are high but the rest are normal. He does need some reminders to take medications. B-ADLs: (I=independent,A=assistance,D=depe ndent) ?Bathing: I Dressing: I Toileting: I Transferring:I, Continence: I, Feeding: I, (Carlos Index): 6 I-ADLs: Ability to use phone: I, Shopping: A Cooking: A- but historically has never done it. Housekeeping: he has kept house. Laundry: he can do in own laundry Transportation: I Medications: A Handle Finances: I (Aretha scale): 8 REVIEW OF SYSTEMS: Weight change/Appetite: monitoring weight, we discussed the need for weight stabilization. Hearing: no change Vision: no change Constipation, Diarrhea: no Incontinence: no Chest pain: No Edema: No Dyspnea: No Falls/injuries/accidents: No Health Maintenance Depression Screening Anxiety Screening Hepatitis C Screening BP Controlled (<130/80) Pneumococcal Vaccine: 65+(2 of 2 - PCV) DTaP,Tdap,Td Vaccine(4 - Td or Tdap) Advance Directive Discussion PAST MEDICAL HISTORY Diagnosis Date Anemia, unspecified Essential hypertension, benign Internal hemorrhoids without mention of complication Mixed hyperlipidemia Seborrheic dermatitis, unspecified Past medical history, appointments, medications, allergies reviewed. Pertinent Lab/Diagnostic Studies are reviewed and discussed today Current Outpatient Medications: losartan (COZAAR) 25 mg tablet rosuvastatin (CRESTOR) 10 mg tablet Lecithin 1,200 mg cap mv-min/folic/K1/lycopen/lutein (CENTRUM SILVER MEN ORAL) niacin 500 mg ORAL tablet Physical Exam BP 142/78 Pulse (!) 55 Ht 176.5 cm (5' 9.5) Wt 88 kg (194 lb) SpO2 96% BMI 28.24 kg/m General appearance: Well appearing, alert, in no acute distress, well nourished. Skin: Skin color, texture, turgor normal, no suspicious rashes or lesions Head: Normocephalic, no masses, lesions, tenderness or abnormalities Eyes: Anicteric sclera. Pupils are equally round and reactive to light. Extraocular movements are intact. Lungs: Lungs clear to auscultation. No wheezing, rhonchi, rales Heart: RRR without murmur, gallop, or rubs. Extremities: No deformities, edema, skin discoloration, clubbing or cyanosis. Good capillary refill. ASSESSMENT/PLAN: 1. Mixed hyperlipidemia - ICD9: 272.2, ICD10: E78.2 (primary diagnosis) - Controlled - Counseled on healthy diet and regular exercise 2. Essential hypertension - ICD9: 401.9, ICD10: I10 - Controlled - Recommend home blood pressure monitoring, to bring results to next visit - Encouraged sodium restriction, DASH or Mediterranean diet - Recommend regular aerobic exercise 3. Mild late onset Alzheimer's dementia without behavioral disturbance, psychotic disturbance, mood disturbance, or anxiety (HCC) - ICD9: 331.0, 294.10, ICD10: G30.1, F02.A0 He is trying to eat mind diet and exercise. 4. Hyperkalemia - ICD9: 276.7, ICD10: E87.5 - BASIC METABOLIC PANEL Tessy Fields MD documented in this encounter [facility] 04-17-2024 Instructions Tessy Fields MD - 04/17/2024 12:03 PM EST Cognitive vitality documented in this encounter [facility] 04-17-2024 Note HNO ID: [id number] Author: TESSY FIELDS MD Service: ? Author Type: Physician Type: Progress Notes Filed: 04/17/2024 13:08 Note Text: Reason for Visit Patient presents with: Recheck: Geriatric follow up Zain Vences is a 74 year old male who presents here today for Geriatric follow up HPI Patient has a pertinent PMHx significant for Hypertension , hyperlipidemia. Anemia. He has been having memory issues for few years. History of mother who developed dementia in her late 80s. As part of evaluation we did an MRI of the brain and his hippocampal volumes are in the 1st percentile compared to age. He also has a lot of mild white matter disease. After knowing his diagnosis, he was a little stressed but is coping pretty well. He has a little thing going on he has been doing some cognitive exercises. His blood pressure has been over 130 most days in the house. He did not get his log bp but does agree that he he needs medication for control of bp. He spent a lot of tome today to try to understand his diagnosis and seems extremely hopeful that there will be a cure in the future. He was referencing the Lacanumab type of medications. He is in moderate dementia and may not be an appropriate candidate for it. We discussed starting him on aricept he will think about it. B-ADLs: (I=independent,A=assistance,D=depe ndent) ?Bathing: I Dressing: I Toileting: I Transferring:I, Continence: I, Feeding: I, (Carlos Index): 6 I-ADLs: Ability to use phone: I, Shopping: A Cooking: A- but historically has never done it. Housekeeping: he has kept house. Laundry: he can do in own laundry Transportation: I Medications: A Handle Finances: I (Aretha scale): 8 REVIEW OF SYSTEMS: Weight change/Appetite: monitoring weight, we discussed the need for weight stabilization. Hearing: no change Vision: no change Constipation, Diarrhea: no Incontinence: no Chest pain: No Edema: No Dyspnea: No Falls/injuries/accidents: No Health Maintenance Depression Screening Anxiety Screening Hepatitis C Screening BP Controlled (<130/80) Pneumococcal Vaccine: 65+(2 of 2 - PCV) DTaP,Tdap,Td Vaccine(4 - Td or Tdap) Advance Directive Discussion PAST MEDICAL HISTORY Diagnosis Date Anemia, unspecified Essential hypertension, benign Internal hemorrhoids without mention of complication Mixed hyperlipidemia Seborrheic dermatitis, unspecified Past medical history, appointments, medications, allergies reviewed. Pertinent Lab/Diagnostic Studies are reviewed and discussed today Current Outpatient Medications: Lecithin 1,200 mg cap mv-min/folic/K1/lycopen/lutein (CENTRUM SILVER MEN ORAL) niacin 500 mg ORAL tablet rosuvastatin (CRESTOR) 10 mg tablet Physical Exam BP 138/86 (BP Site: Left Arm) Pulse 65 Wt 84.3 kg (185 lb 13.6 oz) SpO2 99% BMI 27.05 kg/m? General appearance: Well appearing, alert, in no acute distress, well nourished. Skin: Skin color, texture, turgor normal, no suspicious rashes or lesions Head: Normocephalic, no masses, lesions, tenderness or abnormalities Eyes: Anicteric sclera. Pupils are equally round and reactive to light. Extraocular movements are intact. Lungs: Lungs clear to auscultation. No wheezing, rhonchi, rales Heart: RRR without murmur, gallop, or rubs. Extremities: No deformities, edema, skin discoloration, clubbing or cyanosis. Good capillary refill. ASSESSMENT/PLAN: 1. Essential hypertension - ICD9: 401.9, ICD10: I10 (primary diagnosis) - Controlled - Recommend home blood pressure monitoring, to bring results to next visit - Encouraged sodium restriction, DASH or Mediterranean diet - Recommend regular aerobic exercise - LOSARTAN 25 MG TABLET 2. Mild cognitive impairment - ICD9: 331.83, ICD10: G31.84. He spent a lot of tome today to try to understand his diagnosis and seems extremely hopeful that there will be a cure in the future. He was referencing the Lacanumab type of medications. He is in moderate dementia and may not be an appropriate candidate for it. We discussed starting him on aricept he will think about it. Tessy Fields MD [facility] 04-17-2024 History of Present illness Narrative Reason for Visit Patient presents with: Recheck: Geriatric follow up Zain Vences is a 74 year old male who presents here today for Geriatric follow up HPI Patient has a pertinent PMHx significant for Hypertension , hyperlipidemia. Anemia. He has been having memory issues for few years. History of mother who developed dementia in her late 80s. As part of evaluation we did an MRI of the brain and his hippocampal volumes are in the 1st percentile compared to age. He also has a lot of mild white matter disease. After knowing his diagnosis, he was a little stressed but is coping pretty well. He has a little thing going on he has been doing some cognitive exercises. His blood pressure has been over 130 most days in the house. He did not get his log bp but does agree that he he needs medication for control of bp. He spent a lot of tome today to try to understand his diagnosis and seems extremely hopeful that there will be a cure in the future. He was referencing the Lacanumab type of medications. He is in moderate dementia and may not be an appropriate candidate for it. We discussed starting him on aricept he will think about it. B-ADLs: (I=independent,A=assistance,D=depe ndent) ?Bathing: I Dressing: I Toileting: I Transferring:I, Continence: I, Feeding: I, (Carlos Index): 6 I-ADLs: Ability to use phone: I, Shopping: A Cooking: A- but historically has never done it. Housekeeping: he has kept house. Laundry: he can do in own laundry Transportation: I Medications: A Handle Finances: I (Aretha scale): 8 REVIEW OF SYSTEMS: Weight change/Appetite: monitoring weight, we discussed the need for weight stabilization. Hearing: no change Vision: no change Constipation, Diarrhea: no Incontinence: no Chest pain: No Edema: No Dyspnea: No Falls/injuries/accidents: No Health Maintenance Depression Screening Anxiety Screening Hepatitis C Screening BP Controlled (<130/80) Pneumococcal Vaccine: 65+(2 of 2 - PCV) DTaP,Tdap,Td Vaccine(4 - Td or Tdap) Advance Directive Discussion PAST MEDICAL HISTORY Diagnosis Date Anemia, unspecified Essential hypertension, benign Internal hemorrhoids without mention of complication Mixed hyperlipidemia Seborrheic dermatitis, unspecified Past medical history, appointments, medications, allergies reviewed. Pertinent Lab/Diagnostic Studies are reviewed and discussed today Current Outpatient Medications: Lecithin 1,200 mg cap mv-min/folic/K1/lycopen/lutein (CENTRUM SILVER MEN ORAL) niacin 500 mg ORAL tablet rosuvastatin (CRESTOR) 10 mg tablet Physical Exam BP 138/86 (BP Site: Left Arm) Pulse 65 Wt 84.3 kg (185 lb 13.6 oz) SpO2 99% BMI 27.05 kg/m General appearance: Well appearing, alert, in no acute distress, well nourished. Skin: Skin color, texture, turgor normal, no suspicious rashes or lesions Head: Normocephalic, no masses, lesions, tenderness or abnormalities Eyes: Anicteric sclera. Pupils are equally round and reactive to light. Extraocular movements are intact. Lungs: Lungs clear to auscultation. No wheezing, rhonchi, rales Heart: RRR without murmur, gallop, or rubs. Extremities: No deformities, edema, skin discoloration, clubbing or cyanosis. Good capillary refill. ASSESSMENT/PLAN: 1. Essential hypertension - ICD9: 401.9, ICD10: I10 (primary diagnosis) - Controlled - Recommend home blood pressure monitoring, to bring results to next visit - Encouraged sodium restriction, DASH or Mediterranean diet - Recommend regular aerobic exercise - LOSARTAN 25 MG TABLET 2. Mild cognitive impairment - ICD9: 331.83, ICD10: G31.84. He spent a lot of tome today to try to understand his diagnosis and seems extremely hopeful that there will be a cure in the future. He was referencing the Lacanumab type of medications. He is in moderate dementia and may not be an appropriate candidate for it. We discussed starting him on aricept he will think about it. Tessy Fields MD documented in this encounter [facility] 04-03-2024 Telephone encounter Note Updated via afterBOT. Maria D Henriquez LPN April 03, 2024 2:43 PM [facility] 04-03-2024 Telephone encounter Note ----- Message from Tessy Fields MD sent at 04/02/2024 6:00 PM EDT ----- Zain, Your MRI unfortunately suggestive of Alzheimer's disease and at your follow-up appointment we will start you likely Namenda. Aricept is better but your heart rate is very low so if we decide to start that we had to really watch this very carefully. Regards, Tessy Fields MD [facility] 04-03-2024 Miscellaneous Notes Updated via afterBOT. Maria D Henriquez LPN April 03, 2024 2:43 PM ----- Message from Tessy Fields MD sent at 04/02/2024 6:00 PM EDT ----- Zain, Your MRI unfortunately suggestive of Alzheimer's disease and at your follow-up appointment we will start you likely Namenda. Aricept is better but your heart rate is very low so if we decide to start that we had to really watch this very carefully. Regards, Tessy Fields MD documented in this encounter [facility] 03-31-2024 History of Present illness Narrative Radiology Service Progress Note PATIENT NAME: Zain Vences DATE OF SERVICE: March 31, 2024 TIME: 2:07 PM PATIENT IDENTITY VERIFICATION COMPLETED USING TWO (2) IDENTIFIERS: Name and Date of confirmed by patient verbally. FALL SCREENING: Has the patient had 2 falls in the last year or 1 fall with injury or currently using an Ambulatory Assistive Device (Walker, Cane, Wheelchair, Crutches, etc.)? No PATIENT GENDER DATA: Male PATIENT RELEVANT IMPLANT DATA REVIEWED: Not Applicable PATIENT PRESENTS WITH AN IMPLANTABLE OR ATTACHED PRODUCTION SKI REPAIRER: No RADIOLOGY DEPARTMENT: MR; Exam(s) Completed: Head: Routine Brain PERIPHERAL IV DATA: Not applicable SIGNED BY: RT Lizzie(R) March 31, 2024 2:07 PM documented in this encounter [facility] 03-31-2024 Note HNO ID: [id number] Author: RITA CHRISTIANSON RT(R) Service: ? Author Type: Technologist Type: Progress Notes Filed: 03/31/2024 14:07 Note Text: Radiology Service Progress Note PATIENT NAME: Zain Vences DATE OF SERVICE: March 31, 2024 TIME: 2:07 PM PATIENT IDENTITY VERIFICATION COMPLETED USING TWO (2) IDENTIFIERS: Name and Date of confirmed by patient verbally. FALL SCREENING: Has the patient had 2 falls in the last year or 1 fall with injury or currently using an Ambulatory Assistive Device (Walker, Cane, Wheelchair, Crutches, etc.)? No PATIENT GENDER DATA: Male PATIENT RELEVANT IMPLANT DATA REVIEWED: Not Applicable PATIENT PRESENTS WITH AN IMPLANTABLE OR ATTACHED PRODUCTION SKI REPAIRER: No RADIOLOGY DEPARTMENT: MR; Exam(s) Completed: Head: Routine Brain PERIPHERAL IV DATA: Not applicable SIGNED BY: RT Lizzie(R) March 31, 2024 2:07 PM [facility] 03-21-2024 Telephone encounter Note Prescription Refill Information The patient has been identified by name and date of : Yes Caregiver verified no other encounters exist for this prescription request: Yes Caregiver confirmed with patient/requestor that no other refills are due, in the near future, with this provider at this time: Yes The last office visit in the department: 03/03/24 Does the patient have a future office visit with this provider/department: No Requested Prescriptions Pending Prescriptions Disp Refills rosuvastatin (CRESTOR) 10 mg tablet 90 tablet 3 Sig: Take 1 tablet by mouth once daily. Leila Carvalho LPN March 21, 2024 9:21 AM [facility] 03-21-2024 Miscellaneous Notes Prescription Refill Information The patient has been identified by name and date of : Yes Caregiver verified no other encounters exist for this prescription request: Yes Caregiver confirmed with patient/requestor that no other refills are due, in the near future, with this provider at this time: Yes The last office visit in the department: 03/03/24 Does the patient have a future office visit with this provider/department: No Requested Prescriptions Pending Prescriptions Disp Refills rosuvastatin (CRESTOR) 10 mg tablet 90 tablet 3 Sig: Take 1 tablet by mouth once daily. Leila Carvalho LPN March 21, 2024 9:21 AM documented in this encounter [facility] 03-19-2024 Note HNO ID: [id number] Author: TESSY FIELDS MD Service: ? Author Type: Physician Type: Progress Notes Filed: 03/19/2024 17:24 Note Text: [facility] New Patient Evaluation Date: March 19, 2024 Patient Name: Zain Vences The [facility] was asked by Dr. Morales to evaluate Zain Vences. Our recommendations of care will be communicated by shared medical record. Reason for Evaluation/Chief complaint: cognitive decline Accompanied by: Mary -------- SUBJECTIVE: HPI: Zain Vences is a 73 year old Right handed male who presents to the [facility] for an initial evaluation. Patient has been seen and referred by Dr. Radha Morales. Patient has a pertinent PMHx significant for Hypertension , hyperlipidemia. Anemia. Today's visit: For the past year her has memory and behavioral changes. Keeps repeating questions, loses things Patient himself has poor insight into his issues. Mother developed dementia in her late 80's. He is less physically active and more sleepy in the day time. He denies having visual or auditory hallucinations, does not think he has sleep apnea, no smoking or drinking. Short-term Memory: Repeats questions/statements: YES Misplacing items around the house: YES Difficulty remembering details of recent conversations within a few hours: YES Difficulty remembering names of familiar people (not family or friends): NO Missed some appointments or major events due to memory changes: NO Language: Word-finding difficulty: YES Fluency: NO Difficulty understanding conversations: NO Difficulty with reading or writing: NO Difficulty with reading comprehension: NO Mood: normal Neurobehavioral symptoms: normal, slightly impaired , gets a little aggressive when his memory issue is questioned Sleep: normal, slightly impaired , not sleeping very well. Parkinsonism: normal REVIEW OF SYSTEMS: Weight change/Appetite: no concerns Hearing: no change Vision: no change Constipation, Diarrhea: no Incontinence: no Chest pain: No Edema: No Dyspnea: No Falls/injuries/accidents: No NEURO: SEE HPI -------- OUTPATIENT MEDICATIONS Current Outpatient Medications on File Prior to Visit Medication Sig Lecithin 1,200 mg cap Take by mouth. mv-min/folic/K1/lycopen/lutein (CENTRUM SILVER MEN ORAL) Take by mouth. niacin 500 mg ORAL tablet Take one(1) tablet daily. rosuvastatin (CRESTOR) 10 mg tablet Take 1 tablet by mouth once daily. (Patient not taking: Reported on 03/19/2024) No current facility-administered medications on file prior to visit. MEDICAL HISTORY PAST MEDICAL HISTORY Diagnosis Date Anemia, unspecified Essential hypertension, benign Internal hemorrhoids without mention of complication Mixed hyperlipidemia Seborrheic dermatitis, unspecified SURGICAL HISTORY PAST SURGICAL HISTORY Procedure Laterality Date COLONOSCOPY FLX DX W/COLLJ SPEC WHEN PFRMD 09/08/2010 COLONOSCOPY FLX DX W/COLLJ SPEC WHEN PFRMD 10/05/2020 SOCIAL HISTORY Social History Tobacco Use Smoking status: Never Smokeless tobacco: Never Substance Use Topics Alcohol use: Not Currently Comment: Once every once in a while Drug use: No -No tobacco. No significant alcohol abuse. No history of substance abuse. -Marital status: -Advanced directives/POA: FAMILY HISTORY FAMILY HISTORY Problem Relation Age of Onset Breast Cancer Mother Heart disease Mother other (phelbitis) Father other (Pulmonary Embolism) Father other (multiple sclerosis) Sister Prostate Cancer Brother No known family history of dementia. ALLERGIES ALLERGIES Allergen Reactions Latex Other: See Comments burning on the face OUTSIDE RECORDS: No outside records provided to review. INTERNAL RECORDS: The patient's electronic medical record was reviewed. The relevant details are summarized in this note. Functional Evaluation: B-ADLs: (I=independent,A=assistance,D=depe ndent) ?Bathing: I , Dressing: I , Toileting: I , Transferring: I , Continence: I , Feeding: I I-ADLs: Transportation: I , Medications: A, Handle Finances: D- has always done it . He can do his own laundry. Patient notes he does the dishes. -------- OBJECTIVE: PHYSICAL EXAM: Vitals: BP 130/80 Pulse (!) 57 Resp 16 Wt 84.8 kg (187 lb) BMI 27.22 kg/m? General appearance: Sitting upright. Appears stated age. No acute distress. Non-toxic appearing. No hypomimia. Lungs: Clear to auscultation bilaterally Heart: RRR Neuro: Mental Status: Alert, oriented to person, place, and time. Follows commands. Answering questions appropriately. No dysarthria or hypophonia. Luria 3-step task: 3 cycles (more content not included)... [facility] 03-19-2024 History of Present illness Narrative Images from the original note were not included. [facility] New Patient Evaluation Date: March 19, 2024 Patient Name: Zain Vences The [facility] was asked by Dr. Morales to evaluate Zain Vences. Our recommendations of care will be communicated by shared medical record. Reason for Evaluation/Chief complaint: cognitive decline Accompanied by: Mary -------- SUBJECTIVE: HPI: Zain Vences is a 73 year old Right handed male who [facility] for an initial evaluation. Patient has been seen and referred by Dr. Radha Morales. Patient has a pertinent PMHx significant for Hypertension , hyperlipidemia. Anemia. Today's visit: For the past year her has memory and behavioral changes. Keeps repeating questions, loses things Patient himself has poor insight into his issues. Mother developed dementia in her late 80's. He is less physically active and more sleepy in the day time. He denies having visual or auditory hallucinations, does not think he has sleep apnea, no smoking or drinking. Short-term Memory: Repeats questions/statements: YES Misplacing items around the house: YES Difficulty remembering details of recent conversations within a few hours: YES Difficulty remembering names of familiar people (not family or friends): NO Missed some appointments or major events due to memory changes: NO Language: Word-finding difficulty: YES Fluency: NO Difficulty understanding conversations: NO Difficulty with reading or writing: NO Difficulty with reading comprehension: NO Mood: normal Neurobehavioral symptoms: normal, slightly impaired , gets a little aggressive when his memory issue is questioned Sleep: normal, slightly impaired , not sleeping very well. Parkinsonism: normal REVIEW OF SYSTEMS: Weight change/Appetite: no concerns Hearing: no change Vision: no change Constipation, Diarrhea: no Incontinence: no Chest pain: No Edema: No Dyspnea: No Falls/injuries/accidents: No NEURO: SEE HPI -------- OUTPATIENT MEDICATIONS Current Outpatient Medications on File Prior to Visit Medication Sig Lecithin 1,200 mg cap Take by mouth. mv-min/folic/K1/lycopen/lutein (CENTRUM SILVER MEN ORAL) Take by mouth. niacin 500 mg ORAL tablet Take one(1) tablet daily. rosuvastatin (CRESTOR) 10 mg tablet Take 1 tablet by mouth once daily. (Patient not taking: Reported on 03/19/2024) No current facility-administered medications on file prior to visit. MEDICAL HISTORY PAST MEDICAL HISTORY Diagnosis Date Anemia, unspecified Essential hypertension, benign Internal hemorrhoids without mention of complication Mixed hyperlipidemia Seborrheic dermatitis, unspecified SURGICAL HISTORY PAST SURGICAL HISTORY Procedure Laterality Date COLONOSCOPY FLX DX W/COLLJ SPEC WHEN PFRMD 09/08/2010 COLONOSCOPY FLX DX W/COLLJ SPEC WHEN PFRMD 10/05/2020 SOCIAL HISTORY Social History Tobacco Use Smoking status: Never Smokeless tobacco: Never Substance Use Topics Alcohol use: Not Currently Comment: Once every once in a while Drug use: No -No tobacco. No significant alcohol abuse. No history of substance abuse. -Marital status: -Advanced directives/POA: FAMILY HISTORY FAMILY HISTORY Problem Relation Age of Onset Breast Cancer Mother Heart disease Mother other (phelbitis) Father other (Pulmonary Embolism) Father other (multiple sclerosis) Sister Prostate Cancer Brother No known family history of dementia. ALLERGIES ALLERGIES Allergen Reactions Latex Other: See Comments burning on the face OUTSIDE RECORDS: No outside records provided to review. INTERNAL RECORDS: The patient's electronic medical record was reviewed. The relevant details are summarized in this note. Functional Evaluation: B-ADLs: (I=independent,A=assistance,D=depe ndent) ?Bathing: I , Dressing: I , Toileting: I , Transferring: I , Continence: I , Feeding: I I-ADLs: Transportation: I , Medications: A, Handle Finances: D- has always done it . He can do his own laundry. Patient notes he does the dishes. -------- OBJECTIVE: PHYSICAL EXAM: Vitals: BP 130/80 Pulse (!) 57 Resp 16 Wt 84.8 kg (187 lb) BMI 27.22 kg/m General appearance: Sitting upright. Appears stated age. No acute distress. Non-toxic appearing. No hypomimia. Lungs: Clear to auscultation bilaterally Heart: RRR Neuro: Mental Status: Alert, oriented to person, place, and time. Follows commands. Answering questions appropriately. No dysarthria or hypophonia. Luria 3-step task: 3 cycles w/ prompting/modelling Bilateral Mario Cognitive Assessment (MoCA) Cranial Nerves: EOMI CN VII: Face symmetric, no ptosis or facial droop CN VIII: Auditory acuity intact CN IX/CN X: Normal palate elevation CN XI: Normal shoulder shrug CN XII: Normal tongue strength and range of motion; no deviation Motor Exam: No cog-wheeling. No rest tremor. No significant postural or intention tremor. No bradykinesia with finger tapping bilaterally. No abnormal movements, jerks. Strength 5/5 in UE's bilaterally. LE's 5/5 throughout as well. Sensory: Intact to light touch in all extremities. Pinprick, vibration, and proprioception not assessed. Coordination: FNF with no ataxia or dysmetria. Gait: Arises independently; normal posture; gait stable with normal stride length, rate, base and arm swing. NEUROPSYCHOLOGY: IMAGING REVIEW: No imaging was done in the past LABS TSH Date Value Ref Range Status 06/15/2023 3.050 0.270 - 4.200 mIU/L Final Vitamin B12 Date Value Ref Range Status 11/15/2022 670 232 - 1,245 pg/mL Final Folate Date Value Ref Range Status 06/15/2023 >20.0 >4.7 ng/mL Final Comment: A result of > 20 ng/mL is not necessarily indicative of a pathologic or treatable condition: it reflects a limitation of the test methodology. Assay reference range: 4.8 to 24.2 ng/mL. Suitable for detection of folate deficiency. Reference: Folate III (Folate III) [package insert V 1.0 Estonian]. [facility], [place], [place]: April 2015. Plan -------- ASSESSMENT: Mr. Vences is a 73 year old MALE Hypertension , hyperlipidemia. Anemia. His decline over the past year with cognition and his MoCA test of 17 on 30 is concerning for definitely at least a mild cognitive impairment or mild dementia. His functionality in his ability to drive is decreased as concerned by his and he has been unable to retain information for shopping lists. Trial of Aricept if tolerated once his MRI is back. PLAN: Labs: CBC, CMP, TSH, B12 Will plan for MRI brain with volumetrics to assess for signs of neurodegeneration and/or significant vascular disease General brain health measures discussed, including the importance of regular aerobic exercise Follow up after testing is complete I spent a total of 50 minutes on the date of the service which included preparing to see the patient. Voice recognition software was used to compose this office note. Please excuse any unintended typographical errors. -------- Tessy Fields MD [facility] 03/19/2024 3:52 PM CC: Referring Physician: Radha Morales [address] [facility] [id number] PCP: Tessy Fields [address] [place] [address] Patient Entered Data: Patient-Reported No data to display Activities of Daily Living (ADL) No data to display PROMIS-10 02/27/2024 06/11/2023 PROMIS 10 Health, in general Very good Good Quality of life, in general Excellent Very good Physical health, in general Very good Good Mental health, in general Very good Very good Social activities satisfaction Excellent Excellent Performing ADL's Completely Completely Social role satisfaction Excellent Excellent Pain, on average 0 - No Pain 0 - No Pain Fatigue, on average Mild Mild Emotional problems Rarely Never PHYSICAL Score 57.7 (Very Good) 54.1 (Very Good) MENTAL Score 59 (Excellent) 59 (Excellent) PHQ-9 02/27/2024 12/14/2022 PHQ-9 All Questions Little interest or pleasure in doing things 0 0 Feeling down, depressed, or hopeless 0 0 Trouble falling or staying asleep, or sleeping too much 0 Feeling tired or having little energy 0 Poor appetite or overeating 0 Feeling bad about yourself - or that you are a failure or have let yourself or your family down 0 Trouble concentrating on things, such as reading the newspaper or watching television 0 Moving or speaking so slowly that other people could have noticed. Or the opposite - being so fidgety or restless that you have been moving around a lot more than usual 0 Thoughts that you would be better off , or of hurting yourself in some way 0 PHQ-9 Score 0 (0-4) minimal depression (5-9) mild depression (10-14) moderate depression (15-19) moderately severe depression (20-27) severe depression Full History of PHQ-9 Scores PHQ-9 Score 02/27/2024 0 11/14/2022 0 Sleep No data to display No data to display Caregiver-Reported No data to display Dementia Severity Rating Scale (DSRS) No data to display documented in this encounter [facility] 03-03-2024 Telephone encounter Note Agree with recommendation. Order placed Thank you Radha Morales APRN.CNP [facility] 03-03-2024 Miscellaneous Notes Agree with recommendation. Order placed Thank you Radha Morales APRN.CNP Consult to geriatrics pended for memory issues. Please file if agreeable. Analilia Medeiros MA documented in this encounter [facility] 03-03-2024 Telephone encounter Note Consult to geriatrics pended for memory issues. Please file if agreeable. Analilia Medeiros MA [facility] 03-03-2024 History of Present illness Narrative Zain Vences is a 73 year old male here for a Medicare wellness visit. Medicare Health Risk Assessment General Health Very good Exercise: Minutes/Day 30 min Exercise: Days/Week 6 days Alcohol: Daily Use Monthly or less Alcohol: Drinks/Day 1 or 2 Alcohol: 6 or more drinks Never Feel off balance No Concerns: Teeth/Dentures No Concerns: Sexual function No Troubled by feelings no Frequency: Eating healthy diet No ADLs requiring help no Safety precautions in home/vehicle No Smoke, vape, chews tobacco No Difficulty hearing No Difficulty seeing No Current Providers Specialists: I have reviewed specialist-related care of the patient in the medical record. Medical/Family history review Reviewed and updated problem list, medical/surgical/family/social history, medications, and allergies. Opioid use review Opioid Medications (last 90 days) No data to display Anxiety/Depression screening PHQ-9 Score: 0. ISSAC-7 Score: 0. Recommendation: no further intervention at this time Cognitive screening 2- got 2 words but could not do the clock Cognitive screening reviewed and Recommended referral for further evaluation (score 0-2). Functional Observation Was the patient's Timed Up & Go test unsteady or >= 12 seconds? No Advance Care Planning Patient did not wish or was not able to name a surrogate decision maker or provide an advance care plan Measurements BP 124/70 Pulse (!) 56 Resp 16 Wt 84.4 kg (186 lb) BMI 27.07 kg/m Assessment/Plan Medicare annual wellness visit, subsequent (Z00.00) - Counseled on healthy diet and regular exercise - Fall avoidance information provided - Personalized prevention plan providedCC: Patient presents with: 6 mo follow up HPI Zain Vences is a 73 year old male who presents today for routine follow up but wants to discuss memory concerns. Concern with forgetfulness. Patient forgets people from years back and is concerned as well. Unable to say how long and is situational. Patient feels it is only things that aren't very important to him. No family history of dementia. Did get worked up last year for this without remarkable labs. MMSE 6 months ago was 28/30. Patient denies getting lost, forgetting how to get places. 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 Occasional Lightheadedness. Intermittent and resolves on its own. Does not relate it to certain positions. Denies falls syncope weakness or numbness. HLD: Eats healthy most of the time. [place]ercises [place] living [place] and walking miles regularly. Denies chest pain, shortness of breath, or exercise intolerance. Chronic anemia: Last colonoscopy normal in 2020. Denies dark sticky stools, blood in stools, and previous iron and b12 studies were normal. 03/03/24: patient had surgery on both of his eyes for cataract. He had very strong astigmatism, but now he can see very clearly. He also sees colors that he did not see before. Sleeps well. He is not lightheaded like before, not sure but thinks stopping the alcohol and cutting out sugar. Patient eats healthy from his garden, he is vegan. Does note minor memory issues. He plays his instruments and really enjoys doing it. Brother had prostate cancer. Brother was diagnosed 7 years ago with prostate cancer. He recovered quite well. REVIEW OF SYSTEMS General: no fevers, no chills, no night sweats, no recurrent infections, no change in appetite, no change in energy, and no significant changes in weight Respiratory: no cough, no wheezing, no shortness of breath, no hemoptysis Cardiovascular: no chest pain, no chest pressure, no palpitations, and no swelling GI: No nausea, vomiting, or diarrhea Psych: PHQ2 is 0 Endocrine: no fatigue, no weight gain, no weight loss, no polyuria, no polyphagia, and no polydipsia Neurologic: No headache, weakness, numbness, tingling, dizziness, memory loss, syncope. PAST MEDICAL HISTORY Diagnosis Date Anemia, unspecified Essential hypertension, benign Internal hemorrhoids without mention of complication Mixed hyperlipidemia Seborrheic dermatitis, unspecified PAST SURGICAL HISTORY Procedure Laterality Date COLONOSCOPY FLX DX W/COLLJ SPEC WHEN PFRMD 09/08/2010 COLONOSCOPY FLX DX W/COLLJ SPEC WHEN PFRMD 10/05/2020 ALLERGIES Latex MEDICATIONS rosuvastatin (CRESTOR) 10 mg tablet Take 1 tablet by mouth once daily. niacin 500 mg ORAL tablet Take one(1) tablet daily. FAMILY HISTORY Problem Relation Age of Onset Breast Cancer Mother other (multiple sclerosis) Sister Social History Tobacco Use Smoking status: Never Smokeless tobacco: Never Substance Use Topics Alcohol use: Yes Alcohol/week: 7.0 standard drinks of alcohol Types: 7 Glasses of Wine (5oz) per week Drug use: No PHYSICAL EXAM BP 124/70 Pulse (!) 56 Resp 16 Wt 84.4 kg (186 lb) BMI 27.07 kg/m General Appearance: well appearing, in no acute distress, alert Pysch: mood and affect broad and appropriate Skin: Skin color, texture, turgor normal for age; Eyes: PERRLA, EOM's intact, conjunctiva pink and moist, no icterus, sclera white, non-injected Neck: Thyroid normal size and symmetric without palpable nodules, Neck supple, No adenopathy Lymph nodes: No cervical lymphadenopathy and No supraclavicular lymphadenopathy Lungs: Lungs clear to auscultation. No wheezing, rhonchi, rales. Heart: RRR without murmur, gallop, or rubs. No ectopy Neurological: Gait normal. Reflexes normal and symmetric. Sensation intact., speech normal, mental status intact, muscle tone normal, muscle strength normal Folstein MMSE 06/15/[address] 5 REGISTRATION 3 ATTENTION & CALCULATION 2 RECALL 2 LANGUAGE 2 REPEAT 1 FOLLOW 3-STEP COMMAND 3 READ AND OBEY 1 WRITE A SENTENCE 1 COPY 1 SCORE 26 Health maintenance reviewed with patient: Advance Directive Discussion due on 06/11/2023 Depression Assessment due on 06/11/2023 DTaP,Tdap,Td Vaccine(4 - Td or Tdap) due on 12/15/2023 Hepatitis C Screening due on 12/15/2023 Pneumococcal Vaccine: 65+(2 of 2 - PCV) due on 12/15/2023 Annual PCP Team Chronic Disease Visit due on 12/15/2023 BP Controlled (<130/80) due on 12/31/2023 Diabetes Screening due on 11/10/2025 Lipid Screening due on 11/11/2027 Colorectal Cancer Screening due on 10/05/2030 Influenza Vaccine Completed RSV Vaccine Completed Shingrix Vaccine Completed Covid-19 Vaccine Completed DATA REVIEWED: No new labs ASSESSMENT/PLAN: 1. Medicare annual wellness visit, subsequent - ICD9: V70.0, ICD10: Z00.00 (primary diagnosis) - Counseled on healthy diet and regular exercise 2. Encounter for immunization - ICD9: V03.89, ICD10: Z23 - INFLUENZA VACCINE, PRSV FREE, AGE 65+ YR, HIGH DOSE, TRIVALENT (FLUZONE HIGH-DOSE) - [employer] COVID-19 VACCINE AGE 12+ YR 3. Memory impairment - ICD9: 780.93, ICD10: R41.3 He would benefit from a geriatric consult 4. Mixed hyperlipidemia - ICD9: 272.2, ICD10: E78.2 - Controlled - Counseled on healthy diet and regular exercise Tessy Fields MD documented in this encounter [facility] 03-03-2024 Note HNO ID: [id number] Author: TESSY FIELDS MD Service: ? Author Type: Physician Type: Progress Notes Filed: 03/03/2024 12:45 Note Text: Zain Vences is a 73 year old male here for a Medicare wellness visit. Medicare Health Risk Assessment General Health Very good Exercise: Minutes/Day 30 min Exercise: Days/Week 6 days Alcohol: Daily Use Monthly or less Alcohol: Drinks/Day 1 or 2 Alcohol: 6 or more drinks Never Feel off balance No Concerns: Teeth/Dentures No Concerns: Sexual function No Troubled by feelings no Frequency: Eating healthy diet No ADLs requiring help no Safety precautions in home/vehicle No Smoke, vape, chews tobacco No Difficulty hearing No Difficulty seeing No Current Providers Specialists: I have reviewed specialist-related care of the patient in the medical record. Medical/Family history review Reviewed and updated problem list, medical/surgical/family/social history, medications, and allergies. Opioid use review Opioid Medications (last 90 days) No data to display Anxiety/Depression screening PHQ-9 Score: 0. ISSAC-7 Score: 0. Recommendation: no further intervention at this time Cognitive screening 2- got 2 words but could not do the clock Cognitive screening reviewed and Recommended referral for further evaluation (score 0-2). Functional Observation Was the patient's Timed Up AND Go test unsteady or >= 12 seconds? No Advance Care Planning Patient did not wish or was not able to name a surrogate decision maker or provide an advance care plan Measurements BP 124/70 Pulse (!) 56 Resp 16 Wt 84.4 kg (186 lb) BMI 27.07 kg/m? Assessment/Plan Medicare annual wellness visit, subsequent (Z00.00) - Counseled on healthy diet and regular exercise - Fall avoidance information provided - Personalized prevention plan providedCC: Patient presents with: 6 mo follow up HPI Zain Vences is a 73 year old male who presents today for routine follow up but wants to discuss memory concerns. Concern with forgetfulness. Patient forgets people from years back and is concerned as well. Unable to say how long and is situational. Patient feels it is only things that aren't very important to him. No family history of dementia. Did get worked up last year for this without remarkable labs. MMSE 6 months ago was 28/30. Patient denies getting lost, forgetting how to get places. 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 Occasional Lightheadedness. Intermittent and resolves on its own. Does not relate it to certain positions. Denies falls syncope weakness or numbness. HLD: Eats healthy most of the time. [place]ises [place] farm and walking miles regularly. Denies chest pain, shortness of breath, or exercise intolerance. Chronic anemia: Last colonoscopy normal in 2020. Denies dark sticky stools, blood in stools, and previous iron and b12 studies were normal. 03/03/24: patient had surgery on both of his eyes for cataract. He had very strong astigmatism, but now he can see very clearly. He also sees colors that he did not see before. Sleeps well. He is not lightheaded like before, not sure but thinks stopping the alcohol and cutting out sugar. Patient eats healthy from his garden, he is vegan. Does note minor memory issues. He plays his instruments and really enjoys doing it. Brother had prostate cancer. Brother was diagnosed 7 years ago with prostate cancer. He recovered quite well. REVIEW OF SYSTEMS General: no fevers, no chills, no night sweats, no recurrent infections, no change in appetite, no change in energy, and no significant changes in weight Respiratory: no cough, no wheezing, no shortness of breath, no hemoptysis Cardiovascular: no chest pain, no chest pressure, no palpitations, and no swelling GI: No nausea, vomiting, or diarrhea Psych: PHQ2 is 0 Endocrine: no fatigue, no weight gain, no weight loss, no polyuria, no polyphagia, and no polydipsia Neurologic: No headache, weakness, numbness, tingling, dizziness, memory loss, syncope. PAST MEDICAL HISTORY Diagnosis Date Anemia, unspecified Essential hypertension, benign Internal hemorrhoids without mention of complication Mixed hyperlipidemia Seborrheic dermatitis, unspecified PAST SURGICAL HISTORY Procedure Laterality Date COLONOSCOPY FLX DX W/COLLJ SPEC WHEN PFRMD 09/08/2010 COLONOSCOPY FLX DX W/COLLJ SPEC WHEN PFRMD 10/05/2020 ALLERGIES Latex MEDICATIONS rosuvastatin (CRESTOR) 10 mg tablet Take 1 tablet by mouth once daily. niacin 500 mg ORAL tablet Take one(1) tablet daily. FAMILY HISTORY Problem Relation Age of Onset Breast Cancer Mother other (multiple sclerosis) Sister Social History Tobacco Use Smoking status: Never Smokeless tobacco: Never Substance Use Topics Alcohol use: Yes Alcohol/week: 7.0 standard drinks of alcohol Types: 7 Glas (more content not included)... [facility] 08-31-2023 History of Present illness Narrative CC: Patient presents with: Recheck: Follow up HPI Zain Vences is a 73 year old male who presents today for follow up. Was seen a few months ago for some memory concerns of forgetting people he had not seen in a few years and lightheadedness. The light headedness has fully resolved, blood work unremarkable, MRI brain with mild to moderate general parenchymal volume loss, and bilateral carotid stenosis 20-39%. No further increase in memory concerns. 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 REVIEW OF SYSTEMS General: no fevers, no chills, no night sweats, no recurrent infections, no change in appetite, no change in energy, and no significant changes in weight Respiratory: no cough, no wheezing, no shortness of breath, no hemoptysis Cardiovascular: no chest pain, no chest pressure, no palpitations, and no swelling Neurologic: No headache, weakness, syncope. PAST MEDICAL HISTORY Diagnosis Date Anemia, unspecified Essential hypertension, benign Internal hemorrhoids without mention of complication Mixed hyperlipidemia Seborrheic dermatitis, unspecified PAST SURGICAL HISTORY Procedure Laterality Date COLONOSCOPY FLX DX W/COLLJ SPEC WHEN PFRMD 09/08/2010 COLONOSCOPY FLX DX W/COLLJ SPEC WHEN PFRMD 10/05/2020 ALLERGIES Latex MEDICATIONS rosuvastatin (CRESTOR) 10 mg tablet^Take 1 tablet by mouth once daily.^Disp: 90 tablet^Rfl: 3 niacin 500 mg ORAL tablet^Take one(1) tablet daily.^Disp: ^Rfl: 0 FAMILY HISTORY Problem Relation Age of Onset Breast Cancer Mother other (multiple sclerosis) Sister Social History Tobacco Use Smoking status: Never Smokeless tobacco: Never Substance Use Topics Alcohol use: Yes Alcohol/week: 7.0 standard drinks of alcohol Types: 7 Glasses of Wine (5oz) per week Drug use: No PHYSICAL EXAM BP 144/92 Pulse (!) 56 Resp 16 Wt 84.8 kg (187 lb) SpO2 97% BMI 27.22 kg/m General Appearance: well appearing, in no acute distress, alert Pysch: mood and affect broad and appropriate Skin: Skin color, texture, turgor normal for age; Eyes: conjunctiva pink and moist, no icterus, sclera white, non-injected Lungs: Lungs clear to auscultation. No wheezing, rhonchi, rales. Heart: RRR without murmur, gallop, or rubs. No ectopy Health maintenance reviewed with patient: Advance Directive Discussion due on 06/11/2023 Depression Assessment due on 06/11/2023 DTaP,Tdap,Td Vaccine(4 - Td or Tdap) due on 12/15/2023 Hepatitis C Screening due on 12/15/2023 Pneumococcal Vaccine: 65+(2 of 2 - PCV) due on 12/15/2023 BP Controlled (<130/80) due on 06/15/2024 Annual PCP Team Chronic Disease Visit due on 07/25/2024 Diabetes Screening due on 06/15/2026 Lipid Screening due on 06/15/2028 Colorectal Cancer Screening due on 10/05/2030 Influenza Vaccine Completed RSV Vaccine Completed Shingrix Vaccine Completed Covid-19 Vaccine Completed DATA REVIEWED: Most recent labs and imaging results. ASSESSMENT/PLAN: 1. Memory change - ICD9: 780.93, ICD10: R41.3 (primary diagnosis) Possible early onset dementia Will repeat mmse at follow up appointment. Needs to schedule with neurology as previously ordered 2. Lightheaded - ICD9: 780.4, ICD10: R42 resolved 3. Dementia without behavioral disturbance (HCC) - ICD9: 294.20, ICD10: F03.90 See #1 Prescription instructions reviewed with patient as applicable. Potential red flag symptoms discussed with the patient. Reviewed appropriate action plan to take if red flag symptoms occur. Patient agreeable to treatment plan. Radha Morales APRN.CNP documented in this encounter [facility] 07-25-2023 Instructions Analilia Lopez PA-C - 07/25/2023 7:19 AM EST Images from the original note were not included. FACT SHEET FOR PATIENTS, PARENTS, AND CAREGIVERS EMERGENCY USE AUTHORIZATION (EUA) OF PAXLOVID FOR CORONAVIRUS DISEASE 2019 (COVID-19) You are being given this Fact Sheet because your healthcare provider believes it is necessary to provide you with PAXLOVID for the treatment of ecqw-ca-ijuxgile coronavirus disease (COVID-19) caused by the SARS-CoV-2 virus. This Fact Sheet contains information to help you understand the risks and benefits of taking the PAXLOVID you may receive. This Fact Sheet also contains information about how to take PAXLOVID and how to report side effects or problems with the appearance or packaging of PAXLOVID. The U.S. Food and Drug Administration (FDA) has issued an Emergency Use Authorization (EUA) to make PAXLOVID available for the treatment of llar-pn-cfprunjy COVID-19 in adults and children 12 years of age and older weighing at least 88 pounds (40 kg) who are at high risk for progression to severe COVID-19, including hospitalization or (for more details about an EUA please see What is an Emergency Use Authorization? at the end of this document). Read this Fact Sheet for information about PAXLOVID. Talk to your healthcare provider about your options or if you have any questions. It is your choice to take PAXLOVID. What is COVID-19? COVID-19 is caused by a virus called a coronavirus. You can get COVID-19 through close contact with another person who has the virus. COVID-19 illnesses have ranged from very xndc-zn-zqzvei, including illness resulting in . While information so far suggests that most COVID-19 illness is mild, serious illness can happen and may cause some of your other medical conditions to become worse. Older people and people of all ages with severe, long lasting (chronic) medical conditions like heart disease, lung disease, and diabetes, for example seem to be at higher risk of being hospitalized for COVID-19. What is PAXLOVID? PAXLOVID is a medicine that is available under EUA for the treatment of emcl-sj-rtukjrir COVID-19 in adults and children 12 years of age and older weighing at least 88 pounds (40 kg) who are at high risk for progression to severe COVID-19, including hospitalization or . Although PAXLOVID is FDA-approved for the treatment of COVID-19 in certain adults (see section What other treatment choices are there?), PAXLOVID use in children remains investigational because it is still being studied. There is limited information about the safety and effectiveness of using PAXLOVID to treat children with nzfk-xy-cydhagbr COVID-19. What is the most important information I should know about PAXLOVID? PAXLOVID can interact with other medicines causing severe or life-threatening side effects or . It is important to know the medicines that should not be taken with PAXLOVID. Do not take PAXLOVID if: you are taking any of the following medicines: o alfuzosin o amiodarone o apalutamide o carbamazepine o colchicine o dihydroergotamine o dronedarone o eletriptan o eplerenone o ergotamine o finerenone o flecainide o flibanserin o ivabradine o lomitapide o lovastatin o lumacaftor/ivacaftor o lurasidone o methylergonovine o midazolam (oral) o naloxegol o phenobarbital o phenytoin o pimozide o primidone o propafenone o quinidine o ranolazine o rifampin o rifapentine o [place] s Wort (hypericum perforatum) o sildenafil (Revatio ) for pulmonary arterial hypertension o silodosin o simvastatin o tolvaptan o triazolam o ubrogepant o voclosporin These are not the only medicines that may cause serious or life-threatening side effects if taken with PAXLOVID. PAXLOVID may increase or decrease the levels of multiple other medicines. It is very important to tell your healthcare provider about all of the medicines you are taking because additional laboratory tests or changes in the dose of your other medicines may be necessary during treatment with PAXLOVID. Your healthcare provider may also tell you about specific symptoms to watch out for that may indicate that you need to stop or decrease the dose of some of your other medicines. you are allergic to nirmatrelvir, ritonavir, or any of the ingredients in PAXLOVID. See the end of this leaflet for a complete list of ingredients in PAXLOVID. See What are the important possible side effects of PAXLOVID? for signs and symptoms of allergic reactions. What should I tell my healthcare provider before I take PAXLOVID? Tell your healthcare provider if you: have kidney problems. You may need a different dose of PAXLOVID. have liver problems, including hepatitis. have Human Immunodeficiency Virus 1 (HIV-1) infection. PAXLOVID may lead to some HIV-1 medicines not working as well in the future. are or plan to become . It is not known if PAXLOVID can harm your unborn baby. Tell your healthcare provider right away if you are or if you become . are or plan to breastfeed. It is not known if PAXLOVID can pass into your breast milk. Talk to your healthcare provider about the best way to feed your baby during treatment with PAXLOVID. Some medicines may interact with PAXLOVID and may cause serious side effects. Tell your healthcare provider about all the medicines you take, including prescription and kfev-fhh-dfnullu medicines, vitamins, and herbal supplements. Your healthcare provider can tell you if it is safe to take PAXLOVID with other medicines. You can ask your healthcare provider or pharmacist for a list of medicines that interact with PAXLOVID. Do not start taking a new medicine without telling your healthcare provider. Tell your healthcare provider if you are taking combined control (hormonal contraceptive). PAXLOVID may affect how your hormonal contraceptives work. Females who are able to become should use another effective alternative form of contraception or an additional barrier method of contraception during treatment with PAXLOVID. Talk to your healthcare provider if you have any questions about contraceptive methods that might be right for you. How do I take PAXLOVID? Take PAXLOVID exactly as your healthcare provider tells you to take it. PAXLOVID consists of 2 medicines: nirmatrelvir tablets and ritonavir tablets. The 2 medicines are taken together 2 times each day for 5 days. Nirmatrelvir is an oval, pink tablet. Ritonavir is a white or off-white tablet. PAXLOVID is available in 2 Dose Packs (see Figures A and B below). Your healthcare provider will prescribe the PAXLOVID Dose Pack that is right for you. If you have kidney disease, your healthcare provider may prescribe a lower dose (see Figure B). Talk to your healthcare provider to make sure you receive the correct Dose Pack. Do not remove your PAXLOVID tablets from the blister card before you are ready to take your dose. Take your first dose of PAXLOVID in the morning or evening, depending on when you product picker your prescription, or as your healthcare provider tells you to. Swallow the tablets whole. Do not chew, break, or crush the tablets. Take PAXLOVID with or without food. Do not stop taking PAXLOVID without talking to your healthcare provider, even if you feel better. If you miss a dose of PAXLOVID within 8 hours of the time it is usually taken, take it as soon as you remember. If you miss a dose by more than 8 hours, skip the missed dose and take the next dose at your regular time. Do not take 2 doses of PAXLOVID at the same time. If you take too much PAXLOVID, call your healthcare provider or go to the nearest hospital emergency room right away. If you are taking a ritonavir- or cobicistat-containing medicine to treat hepatitis C or HIV-1 infection, you should continue to take your medicine as prescribed by your healthcare provider. Talk to your healthcare provider if you do not feel better or if you feel worse after 5 days. What are the important possible side effects of PAXLOVID? PAXLOVID may cause serious side effects, including: Allergic reactions, including severe allergic reactions (anaphylaxis) have happened during treatment with PAXLOVID. Stop taking PAXLOVID and get medical help right away if you get any of the following symptoms of an allergic reaction: o skin rash, hives, blisters or peeling skin o painful sores or ulcers in the mouth, nose, throat or genital area o swelling of the mouth, lips, tongue or face o trouble swallowing or breathing o throat tightness o hoarseness Liver Problems. Tell your healthcare provider right away if you get any of the following signs and symptoms of liver problems during treatment with PAXLOVID: o loss of appetite o yellowing of your skin and the white of eyes o dark-colored urine o pale colored stools o itchy skin o stomach-area (abdominal) pain The most common side effects of PAXLOVID include: altered sense of taste and diarrhea. Other possible side effects include: headache vomiting abdominal pain nausea high blood pressure feeling generally unwell These are not all the possible side effects of PAXLOVID. For more information, ask your healthcare provider or pharmacist. What other treatment choices are there? PAXLOVID is FDA-approved for the treatment of ohgm-ie-dyeubpam COVID-19 in certain adults; however, there are not sufficient quantities of the approved presentations (i.e., dose packs) of PAXLOVID at this time. This EUA continues to authorize the emergency use of PAXLOVID for the approved patient population to ensure continued access in order to meet the public health need. VEKLURY (remdesivir) is FDA-approved for the treatment of zuig-gs-zvlpqjdp COVID-19 in certain adults and children. Talk with your healthcare provider to see if VEKLURY is appropriate for you. For information on the emergency use of other medicines that are authorized by FDA to treat people with COVID-19, please go to https://www.fda.gov/emergency-prep bugqzkxo-vmh-yjygwied/zck-cwkjd-ji udglpccc-bhl-imwgtq-framework/sergio mgtnr-dnx-qhfxditnohjjj. Your healthcare provider may talk with you about clinical trials for which you may be eligible. It is your choice to be treated or not to be treated with PAXLOVID. Should you decide not to receive it or for your child not to receive it, it will not change your standard medical care. What if I am or ? There is limited experience treating women or mothers with PAXLOVID. For a mother and unborn baby, the benefit of taking PAXLOVID may be greater than the risk from the treatment. If you are , discuss your options and specific situation with your healthcare provider. If you are , discuss your options and specific situation with your healthcare provider. How do I report side effects or problems with the appearance or packaging of PAXLOVID? Contact your healthcare provider if you have any side effects that bother you or do not go away. Report side effects or problems with the appearance or packaging of PAXLOVID (see Figures A and B above for examples of PAXLOVID Dose Packs) to [employer] at www.fda.gov/medEnject or call 9-533-PGL-3560 or you can report side effects to [employer] at the contact information provided below. How should I store PAXLOVID? Store PAXLOVID tablets at room temperature, between 68?F to 77?F (20?C to 25?C). Keep PAXLOVID and all medicines out of the reach of children. What if I have questions about the expiration date for my PAXLOVID? The FDA has extended the expiration date (shelf-life) for some lots of PAXLOVID. To find the extended expiration date, enter the lot number found on the side of carton or bottom of blister pack at this website: [email or web address] or talk with your healthcare provider. Information on the authorized shelf-life extensions for PAXLOVID may also be found at https://www.fda.gov/emergency-prep axfoqehy-ucq-qvzncbre/huo-tembp-fm spdlrsyv-opj-ztpnlf-framework/expi jzfauv-dthydl-hgrbgmbtc. How can I learn more about COVID-19? Ask your healthcare provider. Visit https://www.cdc.gov/COVID19. Contact your local or state public health department. What is an Emergency Use Authorization (EUA)? The [place] FDA has made PAXLOVID available under an emergency access mechanism called an Emergency Use Authorization (EUA). The EUA is supported by a Animal Care Assistant of Health and Human Services (HHS) declaration that circumstances exist to justify the emergency use of drugs and biological products during the COVID-19 pandemic. In issuing an EUA, the FDA has determined, among other things, that based on the total amount of scientific evidence available including data from adequate and well-controlled clinical trials, if available, it is reasonable to believe that the product may be effective for diagnosing, treating, or preventing COVID-19, or a serious or life-threatening disease or condition caused by COVID-19; that the known and potential benefits of the product, when used to diagnose, treat, or prevent such disease or condition, outweigh the known and potential risks of such product; and that there are no adequate, approved, and available alternatives. All of these criteria must be met to allow for the product to be available under an EUA. The EUA for PAXLOVID is in effect for the duration of the COVID-19 declaration justifying emergency use of this product, unless the relevant EUA declaration is terminated or the EUA revoked (after which the products may no longer be used under the EUA). What are the ingredients in PAXLOVID? Active ingredient: nirmatrelvir and ritonavir Nirmatrelvir inactive ingredients: colloidal silicon dioxide, croscarmellose sodium, lactose monohydrate, microcrystalline cellulose, and sodium stearyl fumarate. Film-coating contains: hydroxy propyl methylcellulose, iron oxide red, polyethylene glycol, and titanium dioxide. Ritonavir inactive ingredients: anhydrous dibasic calcium phosphate, colloidal silicon dioxide, copovidone, sodium stearyl fumarate, and sorbitan monolaurate. The film coating may contain: colloidal anhydrous silica, colloidal silicon dioxide, hydroxypropyl cellulose, hypromellose, polyethylene glycol, polysorbate 80, talc, and titanium dioxide. Additional Information For general questions, visit the website or call the telephone number provided below. Website: [email or web address] Telephone number: (1-877-c19-pack) Distributed by [employer] [place] [address] [id number] Revised: 10/2022 documented in this encounter [facility] 07-25-2023 History of Present illness Narrative This Team Access Model visit is a virtual encounter. It required patient-provider interaction for the medical decision making as documented below. Patient agrees to the visit: Yes Patient Location: [place] CC: Patient presents with: Covid Positive HPI Zain Vences is a 73 year old male who is contacted today for a virtual visit. This is an established patient of Dr. Tessy Fields MD. came down with covid on Sunday, and she was treated with antiviral (not Paxlovid) that seem to help her symptoms. He is requesting that he started on an antiviral as well. Patient reports that his symptoms started yesterday, and he tested positive via home test as well for confirmation. C/o severe sore throat. Tmax 100.6 today. C/o congestion, cough. Has a nagging headache. Fatigued. No major body aches. REVIEW OF SYSTEMS See HPI PAST MEDICAL HISTORY Diagnosis Date Anemia, unspecified Essential hypertension, benign Internal hemorrhoids without mention of complication Mixed hyperlipidemia Seborrheic dermatitis, unspecified PAST SURGICAL HISTORY Procedure Laterality Date COLONOSCOPY FLX DX W/COLLJ SPEC WHEN PFRMD 09/08/2010 COLONOSCOPY FLX DX W/COLLJ SPEC WHEN PFRMD 10/05/2020 ALLERGIES Latex MEDICATIONS rosuvastatin (CRESTOR) 10 mg tablet^Take 1 tablet by mouth once daily.^Disp: 90 tablet^Rfl: 3 niacin 500 mg ORAL tablet^Take one(1) tablet daily.^Disp: ^Rfl: 0 FAMILY HISTORY Problem Relation Age of Onset Breast Cancer Mother other (multiple sclerosis) Sister Social History Tobacco Use Smoking status: Never Smokeless tobacco: Never Substance Use Topics Alcohol use: Yes Alcohol/week: 7.0 standard drinks of alcohol Types: 7 Glasses of Wine (5oz) per week Drug use: No EXAM: Deferred physical exam as visit was completed over the phone Patient is speaking in complete sentences without obvious respiratory distress or audible wheezing. Virtual visit completed using video, limited exam completed. GENERAL: alert and appropriate, in no distress, well-hydrated, well nourished, and happy, smiling, interactive SKIN: no rash noted RESPIRATORY: breathing non-labored DATA REVIEWED: positive home test Advance Directive Discussion due on 06/11/2023 Depression Assessment due on 06/11/2023 DTaP,Tdap,Td Vaccine(4 - Td or Tdap) due on 12/15/2023 Hepatitis C Screening due on 12/15/2023 Pneumococcal Vaccine: 65+(2 of 2 - PCV) due on 12/15/2023 Annual PCP Team Chronic Disease Visit due on 06/15/2024 BP Controlled (<130/80) due on 06/15/2024 Diabetes Screening due on 06/15/2026 Lipid Screening due on 06/15/2028 Colorectal Cancer Screening due on 10/05/2030 Influenza Vaccine Completed RSV Vaccine Completed Shingrix Vaccine Completed Covid-19 Vaccine Completed ASSESSMENT/PLAN: 1. Positive self-administered antigen test for COVID-19 - ICD9: 079.89, ICD10: U07.1 Discussed viral etiology and rationale for treatment. Home test positive yesterday - Symptomatic treatment with prn acetaminophen or ibuprofen - Supportive care with fluids and rest Will start on antiviral tx -- see orders and treatment algorithm below - NIRMATRELVIR 300 MG (150 MG X2)-RITONAVIR 100 MG TABLET,DOSE PACK Follow-up as previously scheduled with Radha morales CNP Prescription instructions reviewed with patient as applicable. Potential red flag symptoms discussed with the patient. Reviewed appropriate action plan to take if red flag symptoms occur. Patient agreeable to treatment plan. During this patient visit I have spent approximately 15 minutes in counseling regarding treatment options and medications. Analilia Lopez PA-C Nirmatrelvir/Ritonavir (Paxlovid) Considerations Paxlovid is FDA-approved for treatment of mild to moderate COVID-19 in adults who are at high risk for progression to severe COVID-19. Consider use of Paxlovid in the following examples of high risk patients (list is not all inclusive): Age over 65 years Cardiovascular and cerebrovascular disease Chronic disease state (kidney, liver, lung) Diabetes (type 1 or type 2) Immunocompromised state (cancer, solid organ or blood stem cell transplant, HIV) Obesity Paxlovid warnings include serious drug interactions (co-administration with drugs highly dependent on CYP3A for clearance), hypersensitivity reactions, hepatotoxicity, and risk of HIV-1 resistance development. Analilia Lopez PA-C July 25, 2023 7:19 AM documented in this encounter [facility] 06-22-2023 Miscellaneous Notes Phone call placed brief message left to contact a nurse. When patient returns call please advise 07/27/[address] Rizo in the [place] location will need to be cancelled as it was scheduled incorrectly. The consultation placed by Reynold Morales on 06/15/2023 was for [facility] , not general Neurology. Bere Price LPN documented in this encounter [facility] 12-14-2022 Instructions Radha Morales APRN.[employer] - 12/14/2022 8:38 AM EDT Check if you have had a recent pneumonia vaccine (PCV20) or a recent Tdap. These should be given in a pharmacy. documented in this encounter [facility] 12-14-2022 History of Present illness Narrative CC: Patient presents with: Recheck: 4 week follow up HPI Zain Vences is a 72 year old male who presents today for palpitation follow up. Was seen 4 weeks ago with a concern of 1 episode of palpitations and his apple watch stated a-fib. Since this occurred he has had not further feelings of palpitation. Denies chest pressure, shortness of breath, edema, or exercise intolerance. Has had an ECHO and Zio patch since last visit. Echo was normal with no significant valve abnormalities. Zio patch with some SVT episodes that patient did not have symptoms with. also with concerns of memory. Patient agrees he seems to forget conversations he and his have. No safety concerns. Does not forget where he is headed, how to use items, peoples names, or anything else regularly. REVIEW OF SYSTEMS General: no fevers, no chills, no night sweats, no recurrent infections, no change in appetite, no change in energy, and no significant changes in weight Respiratory: no cough, no wheezing, no shortness of breath, no hemoptysis Cardiovascular: no chest pain, no chest pressure, no palpitations, and no swelling PAST MEDICAL HISTORY Diagnosis Date Anemia, unspecified Essential hypertension, benign Internal hemorrhoids without mention of complication Mixed hyperlipidemia Seborrheic dermatitis, unspecified PAST SURGICAL HISTORY Procedure Laterality Date COLONOSCOPY FLX DX W/COLLJ SPEC WHEN PFRMD 09/08/2010 COLONOSCOPY FLX DX W/COLLJ SPEC WHEN PFRMD 10/05/2020 ALLERGIES Latex MEDICATIONS rosuvastatin (CRESTOR) 10 mg tablet^Take 1 tablet by mouth once daily.^Disp: 90 tablet^Rfl: 3 niacin 500 mg ORAL tablet^Take one(1) tablet daily.^Disp: ^Rfl: 0 FAMILY HISTORY Problem Relation Age of Onset Breast Cancer Mother other (multiple sclerosis) Sister Social History Tobacco Use Smoking status: Never Smokeless tobacco: Never Substance Use Topics Alcohol use: Yes Alcohol/week: 17.5 standard drinks Types: 7 Glasses of Wine (5oz) per week Drug use: No PHYSICAL EXAM BP 112/76 Pulse (!) 52 Temp 36.1 C (97 F) (Temporal) Resp 16 Wt 83.5 kg (184 lb) SpO2 98% BMI 26.78 kg/m General Appearance: well appearing, in no acute distress, alert Eyes: conjunctiva pink and moist, no icterus, sclera white, non-injected Lungs: Lungs clear to auscultation. No wheezing, rhonchi, rales. Heart: RRR without murmur, gallop, or rubs. No ectopy MINI-MENTAL STATE EXAMINATION (MMSE) Make the patient comfortable and establish rapport. Ask questions in the order listed. Total possible score is 30. ORIENTATION 1. What is the (year) (season) (date) (day) (month)? Max score=5 Patient's score=4 2. Where are we? (state) (county) (town or city) (hospital) (floor)? Max score=5 Patient's score=5 REGISTRATION Ask the patient if you may test his/her memory. Then say the names of 3 unrelated objects, clearly and slowly, about one second for each (eg, apple, table, elysia). After you have said all 3, ask him/her to repeat them. This first repetition determines the score(0-3), but keep saying them until he/she can repeat all 3, up to 6 trials. Max score=3 Patient's score=3 ATTENTION AND CALCULATION Ask the patient to begin with 100 and count backwards by 7. Stop after 5 subtractions (93, 86, 79, 72, 65). Score the total number of correct answers. If the patient cannot or will not perform the serial 7s task, ask him/her to spell the word WORLD backwards. The score is the number of letters in the correct order (eg, DLROW=5; DLRW=4; DLORW, DLW=3; OW=2; DRLWO=1). Max score=5 Patient's score=5 RECALL Ask the patient to recall the 3 items repeated above (eg, apple, table, elysia). Max score=3 Patient's score=2 LANGUAGE Naming: Show the patient a wristwatch and ask him/her what it is. Repeat for pencil. Max score=2 Patient's score=2 Repetition: Ask the patient to repeat the phrase No ifs, ands, or buts: after you. Max score=1 Patient's score=1 3-Stage Command: Give the patient a piece of blank paper and ask him/her to take a piece of paper in your right hand, fold it in half, put it on the floor. Score 1 point for each part correctly executed. Max score=3 Patient's score=3 Reading: On a blank piece of paper, print the sentence CLOSE YOUR EYES in letters large enough for the patient to see clearly. Ask him/her to read it and do what it says. Score 1 point only if he/she actually closes his/her eyes. Max score=1 Patient's score=1 Writing: Give the patient a blank piece of paper and ask him/her to write a sentence. Do not dictate a sentence; it is to be written spontaneously. It must contain a subject and verb and be sensible. Correct grammar and punctuation are not necessary. Max score=1 Patient's score=1 Copying: Ask the patient to copy the figure of intersecting pentagons exactly as it is. All 10 angles must be present and 2 must intersect to form a 4-sided figure to score 1 point. Tremor and rotation are ignored. Max score=1 Patient's score=1 MAXIMUM TOTAL SCORE = 30 TOTAL SCORE = 28/30 Suggested guideline for determining the severity of cognitive impairment: Mild: MMSE>21 Moderate: MMSE 10-20 Severe: MMSE<9 Expected decline in MMSE scores in untreated mild to moderate Alzheimer's patient is 2 to 4 points per year. Health maintenance reviewed with patient: HEPATITIS C SCREENING Never done BP CONTROLLED (<130/80) Never done DTAP,TDAP,TD(1 - Tdap) Never done PNEUMOCOCCAL: 65+(1 - PCV) Never done ADVANCE DIRECTIVE DISCUSSION due on 06/11/2022 DEPRESSION ASSESSMENT Never done INFLUENZA(1) due on 02/09/2023 ANNUAL PCP TEAM CHRONIC DISEASE VISIT due on 11/16/2023 DIABETES SCREEN due on 11/10/2025 LIPID SCREEN due on 11/11/2027 COLORECTAL CANCER SCREENING due on 10/05/2030 SHINGRIX VACCINE Completed COVID-19 VACCINE Completed DATA REVIEWED: Most recent labs and imaging results. ASSESSMENT/PLAN: 1. Palpitations - ICD9: 785.1, ICD10: R00.2 (primary diagnosis) - no further occurrence - discussed SVT bursts and starting a beta jose luis or seeing cardiology but patient declined at this time as he is asymptomatic - follow up in 6 months or earlier if needed 2. Memory change - ICD9: 780.93, ICD10: R41.3 - on MMSE - will recheck in 6-12 months to evaluate for any differences - no safety concerns or concerns for dementia at this time. Prescription instructions reviewed with patient as applicable. Potential red flag symptoms discussed with the patient. Reviewed appropriate action plan to take if red flag symptoms occur. Patient agreeable to treatment plan. Radha Morales APRN.CNP documented in this encounter [facility] 11-15-2022 History of Present illness Narrative CC: Patient presents with: Recheck: 6 month follow up HPI Zain Vences is a 72 year old male who presents today for routine follow up, but has some concerns he would like to discuss. Was in [place] on vacation this past august. Woke up with fluttering in his chest and his apple watch saying he was in a-fib. Did go to [facility] but by the time he was there it was in normal rhythm so no testing was completed. Had never had these palpitations previously and none since. Prior to and even after having this, he was hiking with without chest pain, shortness of breath, or further palpitations. States he does have a history of a heart murmur, but unsure if this was ever evaluated. 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 Denies any activity intolerance or chest pressure, but does have noticed some fatigue. Anemia: Denies any dark sticky stools, blood in stools, or shortness of breath. Had a normal colonoscopy in 2020. REVIEW OF SYSTEMS General: no fevers, no chills, no night sweats, no recurrent infections, no change in appetite, and no significant changes in weight Respiratory: no cough, no wheezing, no shortness of breath, no hemoptysis Cardiovascular: no chest pain, no chest pressure, no palpitations, and no swelling GI: No nausea, vomiting, or diarrhea Neurologic: No headache, weakness, numbness, tingling, dizziness, memory loss, syncope. PAST MEDICAL HISTORY Diagnosis Date Anemia, unspecified Essential hypertension, benign Internal hemorrhoids without mention of complication Mixed hyperlipidemia Seborrheic dermatitis, unspecified PAST SURGICAL HISTORY Procedure Laterality Date COLONOSCOPY FLX DX W/COLLJ SPEC WHEN PFRMD 09/08/2010 COLONOSCOPY FLX DX W/COLLJ SPEC WHEN PFRMD 10/05/2020 ALLERGIES Latex MEDICATIONS rosuvastatin (CRESTOR) 10 mg tablet TAKE 1 TABLET BY MOUTH EVERY DAY carbamide peroxide (DEBROX) 6.5 % otic solution Use 5 Drops in both ears twice daily. niacin 500 mg ORAL tablet Take one(1) tablet daily. FAMILY HISTORY Problem Relation Age of Onset Breast Cancer Mother other (multiple sclerosis) Sister Social History Tobacco Use Smoking status: Never Smokeless tobacco: Never Substance Use Topics Alcohol use: Yes Alcohol/week: 17.5 standard drinks Types: 7 Glasses of Wine (5oz) per week Drug use: No PHYSICAL EXAM BP 118/80 Pulse (!) 56 Resp 16 Wt 84.4 kg (186 lb) BMI 27.07 kg/m General Appearance: well appearing, in no acute distress, alert Skin: Skin color, texture, turgor normal for age; Eyes: conjunctiva pink and moist, no icterus, sclera white, non-injected Neck: Thyroid normal size and symmetric without palpable nodules, Neck supple, No adenopathy Lymph nodes: No cervical lymphadenopathy and No supraclavicular lymphadenopathy Lungs: Lungs clear to auscultation. No wheezing, rhonchi, rales. Heart: RRR without murmur, gallop, or rubs. No ectopy BUE Extremities: No deformities, edema, skin discoloration, clubbing or cyanosis. Good capillary refill. Health maintenance reviewed with patient: HEPATITIS C SCREENING Never done DTAP,TDAP,TD(1 - Tdap) Never done PNEUMOCOCCAL: 65+(1 - PCV) Never done ADVANCE DIRECTIVE DISCUSSION due on 06/11/2022 DEPRESSION ASSESSMENT Never done SHINGRIX VACCINE(2 of 2) due on 11/17/2022 ANNUAL PCP TEAM CHRONIC DISEASE VISIT due on 01/30/2023 BP CONTROLLED (<130/80) due on 01/30/2023 DIABETES SCREEN due on 11/10/2025 LIPID SCREEN due on 11/11/2027 COLORECTAL CANCER SCREENING due on 10/05/2030 INFLUENZA Completed COVID-19 VACCINE Completed DATA REVIEWED: Most recent labs EKG Interpretation: RHYTHM: Sinus bradycardia at 46 beats per minute AXIS: Normal axis INTERVALS: Normal GA interval QRS COMPLEX: Normal ST SEGMENT: Normal ST-T segments QT INTERVAL: Normal COMPARED WITH PRIOR: None available ASSESSMENT/PLAN: 1. Palpitations - ICD9: 785.1, ICD10: R00.2 (primary diagnosis) - no further episodes but does need evaluated further. Recent TSH normal - ECHO - PERFLUTREN LIPID MICROSPHERES 1.1 MG/ML INJECTION IN NS 10 ML - SODIUM CHLORIDE 0.9 % (FLUSH) INJECTION SYRINGE - ECG COMPLETE - OUTSIDE VENDOR CARDIAC OUTPATIENT EXTENDED RHYTHM RECORDING (WITHOUT TELEMETRY) 2. Other fatigue - ICD9: 780.79, ICD10: R53.83 - possibly from anemia. Will further evaluate and treat accordingly - ECHO - PERFLUTREN LIPID MICROSPHERES 1.1 MG/ML INJECTION IN NS 10 ML - SODIUM CHLORIDE 0.9 % (FLUSH) INJECTION SYRINGE - IRON + TIBC - FERRITIN BLD - VITAMIN B12 BLOOD - ECG COMPLETE 3. Anemia, unspecified type - ICD9: 285.9, ICD10: D64.9 As above - IRON + TIBC - FERRITIN BLD - VITAMIN B12 BLOOD 4. Bradycardia - ICD9: 427.89, ICD10: R00.1 - apical typically in 50s, with EKG was in 40s. - ECHO - PERFLUTREN LIPID MICROSPHERES 1.1 MG/ML INJECTION IN NS 10 ML - SODIUM CHLORIDE 0.9 % (FLUSH) INJECTION SYRINGE - OUTSIDE VENDOR CARDIAC OUTPATIENT EXTENDED RHYTHM RECORDING (WITHOUT TELEMETRY) 4. Mixed hyperlipidemia - ICD9: 272.2, ICD10: E78.2 - Controlled - Continue current medications - Counseled on healthy diet and regular exercise Prescription instructions reviewed with patient as applicable. Potential red flag symptoms discussed with the patient. Reviewed appropriate action plan to take if red flag symptoms occur. Patient agreeable to treatment plan. Radha Morales APRN.CHRISSY documented in this encounter [facility] 08-21-2022 Miscellaneous Notes See my chart message from 08/21/22. Patient called in with concern of toe /toe nail redness, soreness and difficulty with bearing weight on toe. Patient is in [place] on vacation and is asking if should get an antibiotic? Patient will send a picture via afterBOT. Please view and advise. Thank you Don# [phone] Maria D Henriquez LPN documented in this encounter [facility] 08-21-2022 Miscellaneous Notes Called patient at this time, recommended him follow up with an Urgent care for redness and swelling of toe. Patient agreeable to this, states that he will be in [place] till early September. documented in this encounter [facility] 07-05-2022 Miscellaneous Notes Patient has been identified by name and date of : Yes, Provider Dr. Fields Date 07/05/22 Time 10:11 am Pharmacy phones for refill(s): Requested Prescriptions Pending Prescriptions Disp Refills rosuvastatin (CRESTOR) 10 mg tablet [Pharmacy Med Name: ROSUVASTATIN CALCIUM 10 MG TAB] 30 tablet 5 Sig: TAKE 1 TABLET BY MOUTH EVERY DAY Date of last office visit in primary care: 01/30/22 Last 2 Encounter Wt Readings: Date: Wt: 01/30/2022 82.1 kg (181 lb) 12/07/2021 81.6 kg (180 lb) Previous labs/tests for medication: Cholesterol: HDL Cholesterol (mg/dL) Date Value 02/27/2022 35 07/12/2021 40 LDL Cholesterol (mg/dL) Date Value 02/27/2022 76 07/12/2021 139 ALT (U/L) Date Value 02/27/2022 14 01/12/2021 7 Non HDL Cholesterol (mg/dL) Date Value 02/27/2022 95 07/12/2021 155 Thank you. Maria Fernanda Price LPN documented in this encounter [facility] 01-30-2022 History of Present illness Narrative Medicare Yearly Visit Medical B eligibilty date Date of last exam none in the past year PAST MEDICAL HISTORY Diagnosis Date Anemia, unspecified Essential hypertension, benign Internal hemorrhoids without mention of complication Mixed hyperlipidemia Seborrheic dermatitis, unspecified PAST SURGICAL HISTORY Procedure Laterality Date COLONOSCOPY FLX DX W/COLLJ SPEC WHEN PFRMD 09/08/2010 COLONOSCOPY FLX DX W/COLLJ SPEC WHEN PFRMD 10/05/2020 ALLERGIES: Latex Medications reviewed: Yes FAMILY HISTORY Problem Relation Age of Onset Breast Cancer Mother other (multiple sclerosis) Sister SOCIAL HISTORY: Social History Tobacco Use Smoking status: Never Smokeless tobacco: Never Substance Use Topics Alcohol use: Yes Alcohol/week: 17.5 standard drinks Types: 7 Glasses of Wine (5oz) per week Drug use: No Zain denies regular aerobic exercise. He watches his diet for sodium, low fat and low cholesterol most of the time. List of current specialists seen: Eye- [facility] End of Live Planning discussed including patients advanced directive wishes: Yes I am willing to follow Zain's advanced directives. PHQ-2 / Depression screen He in the past two weeks denies having felt down, depressed, hopeless, or with little interest or pleasure in doing things. Functional Ability/Safety Screen 1. Was the patient's timed Up and Go test unsteady or longer than 30 seconds? No 2. Does the patient need help with the phone, transportation, shopping,preparing meals, housework, laundry, medications or managing money? No 3. Does your home have rugs in the hallway, lack of grab bars in the bathroom, lack of handrails on the stairs or have poor lighting? No Hearing Evaluation: within normal limits and normal PHYSICAL EXAM BP 104/60 (BP Site: Left Arm, BP Position: Sitting, BP Cuff Size: Large Adult) Pulse (!) 58 Temp (!) 35.9 C (96.6 F) Resp 12 Ht 176.5 cm (5' 9.5) Wt 82.1 kg (181 lb) SpO2 97% BMI 26.35 kg/m Alert and oriented X 3: YES Body mass index is 26.35 kg/m . ASSESSMENT/PLAN: 71 year old male The following prevention plan was discussed during the office visit and provided to the patient: - Lipid panel - Glaucoma screening Tessy Fields MD Reason for Visit No chief complaint on file. Zain Vences is a 71 year old male who presents here today for Above Complaints.. Health Maintenance HEPATITIS C SCREENING DTAP,TDAP,TD(1 - Tdap) SHINGRIX VACCINE(1 of 2) PNEUMOCOCCAL: 65+(1 - PCV) ADVANCE DIRECTIVE DISCUSSION HPI Patient is a volunteer with hospice, also volunteers as a guardian, very busy person. Cook meals together with and he does the clean up. He does the salad part of the cooking he chops lettuce, Patient had different vinegars and oils etc. He is vegan. On statin ,and we need to check his levels Brother had prostate cancer , will the psa. He had lost around 30 in the past and his LUTS and gotten better at that time. No problem-specific Assessment & Plan notes found for this encounter. PAST MEDICAL HISTORY Diagnosis Date Anemia, unspecified Essential hypertension, benign Internal hemorrhoids without mention of complication Mixed hyperlipidemia Seborrheic dermatitis, unspecified PAST SURGICAL HISTORY Procedure Laterality Date COLONOSCOPY FLX DX W/COLLJ SPEC WHEN PFRMD 09/08/2010 COLONOSCOPY FLX DX W/COLLJ SPEC WHEN PFRMD 10/05/2020 FAMILY HISTORY Problem Relation Age of Onset Breast Cancer Mother other (multiple sclerosis) Sister Social History Tobacco Use Smoking status: Never Smokeless tobacco: Never Substance Use Topics Alcohol use: Yes Alcohol/week: 17.5 standard drinks Types: 7 Glasses of Wine (5oz) per week Drug use: No Past medical history, appointments, medications, allergies reviewed. Pertinent Lab/Diagnostic Studies are reviewed and discussed today Current Outpatient Medications: rosuvastatin (CRESTOR) 10 mg tablet carbamide peroxide (DEBROX) 6.5 % otic solution niacin 500 mg ORAL tablet Review of Systems CONSTITUTIONAL: No fevers, chills night sweats, unintended weight loss CARDIOVASCULAR: No chest pain, dyspnea, palpitations, orthopnea, PND, ankle edema. PULM: No dyspnea, unexplained cough. GI: No dysphagia/odynophagia, problematic reflux, constipation, diarrhea, changes in stool habits, hematochezia, melena. : No new urinary complaints, including dysuria, gross hematuria or pyuria. NEURO: No new balance problems, peripheral weakness/paresthesias or numbness of concern. Physical Exam BP 104/60 (BP Site: Left Arm, BP Position: Sitting, BP Cuff Size: Large Adult) Pulse (!) 58 Temp (!) 35.9 C (96.6 F) Resp 12 Ht 176.5 cm (5' 9.5) Wt 82.1 kg (181 lb) SpO2 97% BMI 26.35 kg/m General appearance: Well appearing, alert, in no acute distress, well nourished. Skin: Skin color, texture, turgor normal, no suspicious rashes or lesions Head: Normocephalic, no masses, lesions, tenderness or abnormalities Eyes: Anicteric sclera. Pupils are equally round and reactive to light. Extraocular movements are intact. Lungs: Lungs clear to auscultation. No wheezing, rhonchi, rales Heart: RRR without murmur, gallop, or rubs. ASSESSMENT/PLAN: 1. Medicare annual wellness visit, subsequent - ICD9: V70.0, ICD10: Z00.00 (primary diagnosis) - Counseled on healthy diet and regular exercise 2. Hypercholesterolemia - ICD9: 272.0, ICD10: E78.00 - LIPID PANEL BASIC - COMP METABOLIC PANEL - CBC + DIFF 3. Family hx of prostate cancer - ICD9: V16.42, ICD10: Z80.42 4. Prostate cancer screening - ICD9: V76.44, ICD10: Z12.5 - PSA/PROSTSPECAG SCRN Tessy Fields MD documented in this encounter [facility] 01-30-2022 Nurse Note [facility] last exam was Spring 2021 documented in this encounter [facility] 01-19-2022 Miscellaneous Notes Patient has been identified by name and date of : Yes Requested Prescriptions Pending Prescriptions Disp Refills rosuvastatin (CRESTOR) 10 mg tablet 30 tablet 5 Sig: Take 1 tablet by mouth once daily. RX INSTRUCTIONS: Patient aware RX will be sent to pharmacy. No need to notify patient. Analilia Argueta Pss documented in this encounter [facility] 01-03-2022 Instructions Cliff Heard - 01/03/2022 11:06 AM EDT Your wound is healed without infection No longer require bandage If nail deformity returns, consider permanent removal documented in this encounter [facility] 01-03-2022 History of Present illness Narrative FOLLOW UP PODIATRIC OFFICE VISIT Chief Complaint: This 71 year old who presents for follow up:total nail avulsion of left great toe Patient presents to clinic for follow-up left great toenail avulsion Patient continues with local wound care. Patient denies any drainage. He denies any major pain. PAIN EVALUATION No data found in the last 1 encounters. No results found for: HBA1C PCP: Tessy Fields MD PAST MEDICAL HISTORY Diagnosis Date Anemia, unspecified Essential hypertension, benign Internal hemorrhoids without mention of complication Mixed hyperlipidemia Seborrheic dermatitis, unspecified Current Outpatient Medications Medication Sig carbamide peroxide (DEBROX) 6.5 % otic solution Use 5 Drops in both ears twice daily. rosuvastatin (CRESTOR) 10 mg tablet Take 1 tablet by mouth once daily. niacin 500 mg ORAL tablet Take one(1) tablet daily. No current facility-administered medications for this visit. ALLERGIES Allergen Reactions Latex Other: See Comments burning on the face PAST SURGICAL HISTORY Procedure Laterality Date COLONOSCOPY FLX DX W/COLLJ SPEC WHEN PFRMD 09/08/2010 COLONOSCOPY FLX DX W/COLLJ SPEC WHEN PFRMD 10/05/2020 Physical Exam: OBJECTIVE: Constitutional: Pt is a well developed 71 year old male who is alert, oriented, cooperative and in no apparent distress. Eyes: Following during examination. No redness or drainage. Respiratory: RR normal and nonlabored. Even breathing. No evidence of distress. Psychology: Patient is engaged during conversation. Normal affect and mood. Does not appear depressed or anxious. NVSI unchanged from previous visit. Dermatological: Left great toe nail bed is now healed without signs of infection. Musculoskeletal/Orthopaedic: Patient has no pain to palpation of left hallux ASSESSMENT: (S91.109A) Open wound of toe, initial encounter (primary encounter diagnosis) PLAN: Left great toe is now healed s/p nail avulsion No signs of infection. He no longer requires wound care If nail deformity returns, consider permanent removal F/u prn Cliff Heard DPM Patient presents with: Left Great Toe - Follow Up, Ingrown Toenail Patient denies pain. 2 wks post total nail avulsion of toenail. documented in this encounter [facility] 12-20-2021 Miscellaneous Notes Patient notified of results and provider's instructions. Patient verbalizes understanding. Samantha Arriola RN ----- Message from Cliff Heard sent at 12/19/2021 12:52 PM EDT ----- Please call patient to inform him that his xrays appear stable Cliff Heard DPM documented in this encounter [facility] 12-16-2021 History of Present illness Narrative Radiology Service Progress Note PATIENT NAME: Zain Vences DATE OF SERVICE: December 16, 2021 TIME: 12:10 PM PATIENT IDENTITY VERIFICATION COMPLETED USING TWO (2) IDENTIFIERS: Name and Date of confirmed by patient verbally. FALL SCREENING: Has the patient had 2 falls in the last year or 1 fall with injury or currently using an Ambulatory Assistive Device (Walker, Cane, Wheelchair, Crutches, etc.)? No PATIENT GENDER DATA: Male PATIENT RELEVANT IMPLANT DATA REVIEWED: Not Applicable RADIOLOGY DEPARTMENT: General X-ray: Exam(s) Completed: Lower Extremity X-Ray(s): Toes, Left PERIPHERAL IV DATA: Not applicable SIGNED BY: RT Zuly(R) December 16, 2021 12:10 PM documented in this encounter [facility] 12-16-2021 History of Present illness Narrative UNIVERSAL PROTOCOL / SAFETY CHECKLIST Procedure to be Performed: Total nail avulsion, L hallux Sign In: A Moment of CARE was completed. Personnel directly involved with the procedure wore the appropriate PPE (Personal Protective Equipment). No special equipment needed. Patient/Surrogate Stated/Verified: PATIENT VERIFIED(optional for EMERGENT procedures): Patient name, Date of , Relevant allergies and The intended procedure Time Out Communication: Intended patient and procedure match the source documents. Consent documented and matches the intended procedure. No relevant labs, photos, and/or imaging studies were applicable for review. Correct side/site marked and visible. Medications required for procedure verified. No fire risk assessment and interventions applicable. No implant(s) inserted. Sign Out: SIGN OUT (optional for EMERGENT procedures): All specimen containers correctly labeled. All instruments, equipment, possible retained foreign bodies accounted for. Post-procedure follow-up management communicated and Plan of Care Visit completed when applicable. Samantha Arriola RN Images from the original note were not included. Consultation requested by Dr. Fields for an opinion regarding ingrowing toenail. My final recommendations will be communicated back to the requesting physician by way of shared Medical record or letter to requesting physician via US mail. Initial Podiatric Office Visit: Chief Complaint: This 71 year old male who presents with chief complaint:redness of left great toe HPI Patient presents to clinic for evaluation of left great toe. Patient has redness and swelling to left great toe. This has been going on for about one week. He presented to the urgent care and was prescribed keflex. The keflex did help to some degree but the toe is still red He does complain of pain with any degree of pressure. Patient denies history of diabetes. PAIN EVALUATION 12/16/2021 1030 Pain Level: 5 Pain Location: Toe Description: Other: See comment patient unable to describe Duration Amount of Time: 2 Duration Units: Weeks Frequency: Intermittent Intervention/Comfort measure: Reposition;Relaxation No results found for: HBA1C PCP: Tessy Fields MD PAST MEDICAL HISTORY Diagnosis Date Anemia, unspecified Essential hypertension, benign Internal hemorrhoids without mention of complication Mixed hyperlipidemia Seborrheic dermatitis, unspecified Current Outpatient Medications Medication Sig carbamide peroxide (DEBROX) 6.5 % otic solution Use 5 Drops in both ears twice daily. rosuvastatin (CRESTOR) 10 mg tablet Take 1 tablet by mouth once daily. niacin 500 mg ORAL tablet Take one(1) tablet daily. No current facility-administered medications for this visit. ALLERGIES Allergen Reactions Latex Other: See Comments burning on the face PAST SURGICAL HISTORY Procedure Laterality Date COLONOSCOPY FLX DX W/COLLJ SPEC WHEN PFRMD 09/08/2010 COLONOSCOPY FLX DX W/COLLJ SPEC WHEN PFRMD 10/05/2020 FAMILY HISTORY Problem Relation Age of Onset Breast Cancer Mother other (multiple sclerosis) Sister Social History Tobacco Use Smoking status: Never Smoker Smokeless tobacco: Never Used Substance Use Topics Alcohol use: Yes Alcohol/week: 17.5 standard drinks Types: 7 Glasses of Wine (5oz) per week Drug use: No REVIEW OF SYSTEMS GENERAL: Negative for Malaise, significant weight loss, fever RESPIRATORY: Negative for cough, wheezing and shortness of breath CARDIOVASCULAR: Negative for chest pain, leg swelling and palpitations GI: Negative for abdominal discomfort, blood in stools or black stools and change in bowel habits : Negative for dysuria, frequency and incontinence MUSCULOSKELETAL: Negative for joint pain or swelling, back pain, and muscle pain. SKIN: Negative for lesions, rash, and itching. HEMATOLOGY/LYMPHOLOGY Negative for prolonged bleeding, bruising easily, and swollen nodes. ENDOCRINE: Negative for cold or heat intolerance, polyuria, polydipsia and goiter. NEURO: negative Physical Exam: Constitutional: Pt is a well developed 71 year old male who is alert, oriented and cooperative Eyes: Following during examination. No redness or drainage. Respiratory: RR normal and nonlabored. Even breathing. No evidence of distress or shortness of breath. Psychology: Patient is engaged during conversation. Normal affect and mood. Does not appear depressed or anxious during encounter. Vascular: Dorsalis pedis and posterior tibial pulses palpable left Capillary Fill time < 5 seconds to digits 1-5 left Skin temperature warm to warm proximal to distal left Hair growth present to digits Neurological: itnact light touch/epicritic sensation left intact protective sensation no significant neurological deficits Dermatological: Left hallux is swollen with drainage from proximal nail fold. there is redness and signs consistent with infection of left hallux. Webspaces clean and dry 1-4 left. Skin appears well hydrated and supple. good color, texture, turgor. No open lesions present. No callosities present. Musculoskeletal/Orthopaedic: Patient has pain to palpation of left hallux ipj at site of ingrowing toenail. Radiographs: ordered ASSESSMENT: (L60.0) Ingrown toenail PLAN: 1. History and physical examination performed. 2. Patient has ingrowing toenail to proximal nail fold of left hallux. Infection is evident by redness, swelling and drainage. He was on keflex but still has infection present. Given failure to eliminate infection with oral antibiotics, discussed total nail avulsion. Patient agreed to proceed with total nail avulsion of left hallux. Discussed risks of toenail procedure not limited to infection, pain, swelling, bleeding, painful scarring, recurrence, need for revised procedure. Patient consented to proceed. Patient was properly identified by name and procedure. The left hallux was then injected with 3 cc of 1% lidocaine plain. The toe was then prepped and draped in the usual aseptic technique. A digital tournicot was applied to the toe. The entire nail was then freed and removed. Careful inspection was performed to assure no remaining spicule present. Sterile wound culture was performed. Avulsion was performed. Sterile dressing was then applied consisting of amerigel, guaze, adela and coban. Tournicot was removed and hyperemic response was noted. Patient tolerated well. Patient will f/u in 2 weeks. Will refill antibiotic Await wound culture results Xray ordered to assure no underlying bone infection. Cliff Heard DPM Podiatry [address] [facility] [address] Dept: [phone] Dept AMB ROOMING INTAKE FLOWSHEET DATA Risk Screening Do you have concerns about personal safety or safety in the home?: No Pain Pain Level: 5 Pain Location: Toe Description: Other: See comment (patient unable to describe) Duration Amount of Time: 2 Duration Units: Weeks Frequency: Intermittent Intervention/Comfort measure: Reposition, Relaxation Patient presents with: Left Great Toe - New Patient, Ingrown Toenail Patient was seen at on 12/07 and prescribed Keflex. Toe remains red at base of nail. Patient denies any known injury to nail. documented in this encounter [facility] 12-16-2021 Instructions Samantha Arriola RN - 12/16/2021 11:37 AM EDT Post-Op Nail Instructions Minimize activity until the anesthesia wears off (about 2-8 hours). Increase activity to tolerance Remove bandage tomorrow Soak affected toe/foot in epsom salts for 15-20 minutes twice daily After soaking, apply antibiotic ointment (OTC Neosporin) to affected toe and re bandage OTC Ibuprofen if having pain, provided you have no allergies or intolerance to NSAIDS Mild drainage, redness, and blood is expected, but if you expeirence severe pain, increase in drainage, swelling, or red streaking please contact our office immediately Feel free to contact office as well if you have any questions/concerns [phone], ask for Podiatry Nurse documented in this encounter [facility] 12-14-2021 Miscellaneous Notes Patient notified and stated that he could not get into lead manufacturing technician until Jan. Patient gómez try to see if he can get into [facility] podi sooner. Shannan Huff LPN Patient reports he was seen recently at [facility] and was treated for Oncholysis and Paronychia. Was prescribed Cephalexin. Patient states he has finished the antibiotic but toe remains red and he believes he has an ingrown toenail. Asking for podiatry referral. Patient to inform office of lead manufacturing technician he would like to see in [facility]. Please call patient with update of referral order. Thank you. documented in this encounter [facility] 12-07-2021 Miscellaneous Notes See telephone encounter documented in this encounter [facility] 12-07-2021 History of Present illness Narrative Patient presents with: Pain: left big toe painful and red x 2 days HPI: Left great toe pain: Duration: Few days, recalls no injury but he has been cleaning up fallen limbs. Location: Distal left great toe phalange Character: Sharp with touching Radiation: No. Aggravating: OK to walk Relieving: Pain relievers: none Associated: Redness, swelling, 1/3 of nail loose on the end Pertinent negatives: Denies drainage MEDICATIONS: carbamide peroxide (DEBROX) 6.5 % otic solution Use 5 Drops in both ears twice daily. rosuvastatin (CRESTOR) 10 mg tablet Take 1 tablet by mouth once daily. niacin 500 mg ORAL tablet Take one(1) tablet daily. ALLERGIES: ALLERGIES Allergen Reactions Latex Other: See Comments burning on the face VITALS: BP 118/72 Pulse (!) 58 Temp 36.6 C (97.9 F) Resp 21 Wt 81.6 kg (180 lb) SpO2 100% BMI 26.20 kg/m PE: Pleasant, in no acute distress. Toe: Left 1st. Onycholysis of distal 1/3 of nail. No nail thickening. Dark debris below the loosened nail (scraping appeared like lint). Erythema of proximal and lateral nail folds. No fluctuance. Mild tenderness of erythematous portions of toe. ASSESSMENT/PLAN: 1. Onycholysis - ICD9: 703.8, ICD10: L60.1 (primary diagnosis) 2. Paronychia of great toe of left foot - ICD9: 681.11, ICD10: L03.032 - CEPHALEXIN 500 MG CAPSULE Appears to be occult traumatic onycholysis with secondary infection. Epsom soaks. Follow up with podiatry if worsening. Austin Fuentes MD documented in this encounter [facility] 12-07-2021 Miscellaneous Notes Patient notified and is going to come in to express care Emily Garay Cma Patient needs evaluated for this. Urgent care would be an option if needed. Thank you Radha Morales APRN.CHRISSY Pt called in and reports he stubbed his toe about 2-3 days ago and his toe nail is about 1/3 from his toe bed. He reports the whole toe is red but especially where it has . States it is slightly swollen and painful, and slowly more with use. Pt denies any seeping. Pt asking if he would need an appointment with provider, or if they would place a consult for podiatry. Pt is sending pictures of the toe through [employer]. Please call and advise. documented in this encounter [facility] Evaluation note Diagnosis Onycholysis- Primary Other specified disease of nail Paronychia of great toe of left foot Onychia and paronychia of toe [facility] Diagnosis Ingrown toenail- Primary Ingrowing nail [facility] Diagnosis Ingrown toenail Ingrowing nail [facility] Diagnosis Ingrown toenail Ingrowing nail [facility] Diagnosis Open wound of toe, initial encounter- Primary [facility] Diagnosis Medicare annual wellness visit, subsequent- Primary Routine general medical examination at a health care facility Hypercholesterolemia Pure hypercholesterolemia Family hx of prostate cancer Family history of malignant neoplasm of prostate Prostate cancer screening Special screening for malignant neoplasm of prostate [facility] Diagnosis Palpitations- Primary Other fatigue Anemia, unspecified type Bradycardia Other specified cardiac dysrhythmias Mixed hyperlipidemia [facility] Diagnosis Palpitations- Primary Memory change Memory loss [facility] Diagnosis Positive self-administered antigen test for COVID-19- Primary [facility] Diagnosis Memory change- Primary Memory loss Lightheaded Dizziness and giddiness Dementia without behavioral disturbance (HCC) Dementia, unspecified, without behavioral disturbance [facility] Diagnosis Medicare annual wellness visit, subsequent- Primary Routine general medical examination at a health care facility Encounter for immunization Need for other specified prophylactic vaccination against single bacterial disease Memory impairment Memory loss Mixed hyperlipidemia [facility] Diagnosis Memory impairment- Primary Memory loss [facility] Diagnosis Cognitive impairment, mild, so stated- Primary Mild cognitive impairment, so stated Memory impairment Memory loss Mixed hyperlipidemia [facility]* Diagnosis Cognitive impairment, mild, so stated Mild cognitive impairment, so stated [facility]* Diagnosis Essential hypertension- Primary Unspecified essential hypertension Mild cognitive impairment Mild cognitive impairment, so stated [facility]* Diagnosis Essential hypertension- Primary Unspecified essential hypertension Mixed hyperlipidemia [facility] Diagnosis Mixed hyperlipidemia- Primary Essential hypertension Unspecified essential hypertension Mild late onset Alzheimer's dementia without behavioral disturbance, psychotic disturbance, mood disturbance, or anxiety (HCC) Hyperkalemia Hyperpotassemia [facility]* Diagnosis Hyperkalemia- Primary Hyperpotassemia documented in this encounter [facility] note* Diagnosis Hyperkalemia- Primary Hyperpotassemia documented in this encounter [facility] note* Diagnosis Essential hypertension, benign- Primary Hyperkalemia Hyperpotassemia documented in this encounter [facility] note* Diagnosis 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)- Primary Hyperkalemia Hyperpotassemia Weight loss Loss of weight Essential (primary) hypertension Unspecified essential hypertension documented in this encounter [facility] note* Diagnosis Hyperkalemia- Primary Hyperpotassemia documented in this encounter [facility] note* Diagnosis 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) documented in this encounter [facility] for referral (narrative)* Diagnostic Procedure Only (Routine) - Closed Specialty Diagnoses / Procedures Referred By Contac t Referred To Contact XR IMAGING Diagnoses Ingrown toenail Procedures XR TOE AP/LAT/OBL LEFT RADEX TOE MINIMUM 2 VIEWS Cliff Heard [address] [place] [address] Xr Imaging Referral ID Status Reason Start Date Expiration Date V isits Requested Visits Authorized [id number] Closed Auto-Generate d Referral 12/16/2021 01/15/2023 1 1 [facility] for referral (narrative)* Diagnostic Procedure Only (Routine) - Closed Specialty Diagnoses / Procedures Referred By Contac t Referred To Contact XR IMAGING Diagnoses Ingrown toenail Procedures XR TOE AP/LAT/OBL LEFT RADEX TOE MINIMUM 2 VIEWS Cliff Heard [address] [place] [address] Xr Imaging Referral ID Status Reason Start Date Expiration Date V isits Requested Visits Authorized [id number] Closed Auto-Generate d Referral 12/16/2021 01/15/2023 1 1 [facility] for referral (narrative)* Outpatient Procedure (Routine) - Authorized Specialty Diagnoses / Procedures Referred By Contac t Referred To Contact [facility] [place] Diagnoses Palpitations Other fatigue Procedures ECG COMPLETE ECG ROUTINE ECG W/LEAST 12 LDS W/I&R Radha Morales APRN.[employer] [address] [place] [address] [facility] [place] [address] [place] [id number] Referral ID Status Reason Start Date Expiration Date Visits Requested Visits Authorized [id number] Authorized Auto-Generat ed Referral 11/15/2022 11/15/2023 1 1 * Outpatient Procedure (Routine) - Authorized Specialty Diagnoses / Procedures Referred By Lam t Referred To Contact [facility] Diagnoses Palpitations Other fatigue Bradycardia Procedures ECHO ECHO TTHRC R-T 2D W/WOM-MODE COMPL SPEC&COLR D Radha Morales APRN.[employer] [address] [place] [address] [facility] [place] [address] [place] [id number] Referral ID Status Reason Start Date Expiration Date Visits Requested Visits Authorized [id number] Authorized Auto-Generat ed Referral 11/15/2022 11/15/2023 1 1 [facility] for visit Narrative* Diagnostic Procedure Only (Routine) - Closed Specialty Diagnoses / Procedures Referred By Contac t Referred To Contact XR IMAGING Diagnoses Ingrown toenail Procedures XR TOE AP/LAT/OBL LEFT RADEX TOE MINIMUM 2 VIEWS Cliff Heard [address] [place] [address] Xr Imaging Referral ID Status Reason Start Date Expiration Date V isits Requested Visits Authorized [id number] Closed Auto-Generate d Referral 12/16/2021 01/15/2023 1 1 [facility] Summary Purpose Family History No Family History Records FoundNo Family History Records FoundNo Family History Records Found Advance Directives No Advanced Directives Records FoundDocuments on File Type Date Recorded Patient Manager Global Expl anation Advance Directive(s) 10/05/2020 6:20 AM Advance Directive(s) 09/30/2020 2:50 PM Documents on File Type Date Recorded Patient Manager Global Expl anation Advance Directive(s) 10/05/2020 6:20 AM Advance Directive(s) 09/30/2020 2:50 PM Reason for Referral Specialty Diagnoses / Procedures Referred By Contac t Referred To Contact Podiatry Diagnoses Ingrown toenail Procedures CONSULT TO PODIATRY OFFICE/OUTPATIENT [facility] 60-74 MINUTES Tessy Fields MD [address] [place] [address] Referral ID Status Reason Start Date Expiration Date Visits Requested Visits Authorized [id number] Authorized PCP Requested Referral 12/14/2021 12/14/2022 1 1 Specialty Diagnoses / Procedures Referred By Contac t Referred To Contact Gerontology Diagnoses Memory impairment Procedures CONSULT TO GERIATRICS OFFICE/OUTPATIENT [facility] MDM 60 MINUTES Radha Morales APRN.CNP [address] [place] [id number] Referral ID Status Reason Start Date Expiration Date Visits Requested Visits Authorized [id number] Authorized PCP Requested Referral 03/03/2024 03/03/2025 1 1 Specialty Diagnoses / Procedures Referred By Contac t Referred To Contact MR IMAGING Diagnoses Cognitive impairment, mild, so stated Procedures MRI 3D POST PROCESSING 3D RENDERING W/INTERP&POSTPROC DIFF WORK STATION Tessy Fields MD [address] [place] [address] [place] [id number] Referral ID Status Reason Start Date Expiration Date Visits Requested Visits Authorized [id number] Authorized Auto-Generat ed Referral 03/19/2024 04/18/2025 1 1 Specialty Diagnoses / Procedures Referred By Contac t Referred To Contact MR IMAGING Diagnoses Cognitive impairment, mild, so stated Procedures MRI BRAIN W QUANT WO IVCON MRI BRAIN BRAIN STEM W/O CONTRAST MATERIAL Tessy Fields MD [address] [place] [address] [place] [address] Referral ID Status Reason Start Date Expiration Date Visits Requested Visits Authorized [id number] Authorized Auto-Generat ed Referral 03/19/2024 04/18/2025 1 1 Additional Source Comments (unrecognized sect ion and content) No Status Records FoundNo Status Records FoundNo Status Records Found INFORMATION SOURCE (unrecogn ized section and content) DATE CREATED AUTHOR 09/09/2021 Skyler Mclain [facility] DATE CREATED AUTHOR AUTHOR'S ORGANIZ ATION 01/02/2025 [facility] DATE CREATED AUTHOR AUTHOR'S ORGANIZ ATION 01/25/2025 [facility] nter Source Comments (unrecognize d section and content) In the event this informatio n is protected by the Federal Confidentiality of Alcohol and Drug Abuse Patient Records regulations: The Federal rules restrict any use of the information to criminally investigate or prosecute any alcohol or drug abuse patient.[facility] the event this information is protected by the Federal Confidentiality of Alcohol and Drug Abuse Patient Records regulations: The Federal rules restrict any use of the information to criminally investigate or prosecute any alcohol or drug abuse patient.[facility] the event this information is protected by the Federal Confidentiality of Alcohol and Drug Abuse Patient Records regulations: The Federal rules restrict any use of the information to criminally investigate or prosecute any alcohol or drug abuse patient.[facility] the event this information is protected by the Federal Confidentiality of Alcohol and Drug Abuse Patient Records regulations: The Federal rules restrict any use of the information to criminally investigate or prosecute any alcohol or drug abuse patient.[facility] the event this information is protected by the Federal Confidentiality of Alcohol and Drug Abuse Patient Records regulations: The Federal rules restrict any use of the information to criminally investigate or prosecute any alcohol or drug abuse patient.[facility] the event this information is protected by the Federal Confidentiality of Alcohol and Drug Abuse Patient Records regulations: The Federal rules restrict any use of the information to criminally investigate or prosecute any alcohol or drug abuse patient.[facility] the event this information is protected by the Federal Confidentiality of Alcohol and Drug Abuse Patient Records regulations: The Federal rules restrict any use of the information to criminally investigate or prosecute any alcohol or drug abuse patient.[facility] the event this information is protected by the Federal Confidentiality of Alcohol and Drug Abuse Patient Records regulations: The Federal rules restrict any use of the information to criminally investigate or prosecute any alcohol or drug abuse patient.[facility] HospitalIn the event this information is protected by the Federal Confidentiality of Alcohol and Drug Abuse Patient Records regulations: The Federal rules restrict any use of the information to criminally investigate or prosecute any alcohol or drug abuse patient.[facility] HospitalIn the event this information is protected by the Federal Confidentiality of Alcohol and Drug Abuse Patient Records regulations: The Federal rules restrict any use of the information to criminally investigate or prosecute any alcohol or drug abuse patient.[facility] HospitalIn the event this information is protected by the Federal Confidentiality of Alcohol and Drug Abuse Patient Records regulations: The Federal rules restrict any use of the information to criminally investigate or prosecute any alcohol or drug abuse patient.[facility] HospitalIn the event this information is protected by the Federal Confidentiality of Alcohol and Drug Abuse Patient Records regulations: The Federal rules restrict any use of the information to criminally investigate or prosecute any alcohol or drug abuse patient.[facility] HospitalIn the event this information is protected by the Federal Confidentiality of Alcohol and Drug Abuse Patient Records regulations: The Federal rules restrict any use of the information to criminally investigate or prosecute any alcohol or drug abuse patient.[facility] HospitalIn the event this information is protected by the Federal Confidentiality of Alcohol and Drug Abuse Patient Records regulations: The Federal rules restrict any use of the information to criminally investigate or prosecute any alcohol or drug abuse patient.[facility] HospitalIn the event this information is protected by the Federal Confidentiality of Alcohol and Drug Abuse Patient Records regulations: The Federal rules restrict any use of the information to criminally investigate or prosecute any alcohol or drug abuse patient.[facility] HospitalIn the event this information is protected by the Federal Confidentiality of Alcohol and Drug Abuse Patient Records regulations: The Federal rules restrict any use of the information to criminally investigate or prosecute any alcohol or drug abuse patient.[facility] HospitalIn the event this information is protected by the Federal Confidentiality of Alcohol and Drug Abuse Patient Records regulations: The Federal rules restrict any use of the information to criminally investigate or prosecute any alcohol or drug abuse patient.[facility] HospitalIn the event this information is protected by the Federal Confidentiality of Alcohol and Drug Abuse Patient Records regulations: The Federal rules restrict any use of the information to criminally investigate or prosecute any alcohol or drug abuse patient.[facility] ClinicIn the event this information is protected by the Federal Confidentiality of Alcohol and Drug Abuse Patient Records regulations: The Federal rules restrict any use of the information to criminally investigate or prosecute any alcohol or drug abuse patient.[facility] HospitalIn the event this information is protected by the Federal Confidentiality of Alcohol and Drug Abuse Patient Records regulations: The Federal rules restrict any use of the information to criminally investigate or prosecute any alcohol or drug abuse patient.[facility] HospitalIn the event this information is protected by the Federal Confidentiality of Alcohol and Drug Abuse Patient Records regulations: The Federal rules restrict any use of the information to criminally investigate or prosecute any alcohol or drug abuse patient.[facility] HospitalIn the event this information is protected by the Federal Confidentiality of Alcohol and Drug Abuse Patient Records regulations: The Federal rules restrict any use of the information to criminally investigate or prosecute any alcohol or drug abuse patient.[facility] HospitalIn the event this information is protected by the Federal Confidentiality of Alcohol and Drug Abuse Patient Records regulations: The Federal rules restrict any use of the information to criminally investigate or prosecute any alcohol or drug abuse patient.[facility] HospitalIn the event this information is protected by the Federal Confidentiality of Alcohol and Drug Abuse Patient Records regulations: The Federal rules restrict any use of the information to criminally investigate or prosecute any alcohol or drug abuse patient.[facility] HospitalIn the event this information is protected by the Federal Confidentiality of Alcohol and Drug Abuse Patient Records regulations: The Federal rules restrict any use of the information to criminally investigate or prosecute any alcohol or drug abuse patient.[facility] HospitalIn the event this information is protected by the Federal Confidentiality of Alcohol and Drug Abuse Patient Records regulations: The Federal rules restrict any use of the information to criminally investigate or prosecute any alcohol or drug abuse patient.[facility] HospitalIn the event this information is protected by the Federal Confidentiality of Alcohol and Drug Abuse Patient Records regulations: The Federal rules restrict any use of the information to criminally investigate or prosecute any alcohol or drug abuse patient.[facility] HospitalIn the event this information is protected by the Federal Confidentiality of Alcohol and Drug Abuse Patient Records regulations: The Federal rules restrict any use of the information to criminally investigate or prosecute any alcohol or drug abuse patient.[facility] HospitalIn the event this information is protected by the Federal Confidentiality of Alcohol and Drug Abuse Patient Records regulations: The Federal rules restrict any use of the information to criminally investigate or prosecute any alcohol or drug abuse patient.[facility] HospitalIn the event this information is protected by the Federal Confidentiality of Alcohol and Drug Abuse Patient Records regulations: The Federal rules restrict any use of the information to criminally investigate or prosecute any alcohol or drug abuse patient.[facility] HospitalIn the event this information is protected by the Federal Confidentiality of Alcohol and Drug Abuse Patient Records regulations: The Federal rules restrict any use of the information to criminally investigate or prosecute any alcohol or drug abuse patient.[facility] HospitalIn the event this information is protected by the Federal Confidentiality of Alcohol and Drug Abuse Patient Records regulations: The Federal rules restrict any use of the information to criminally investigate or prosecute any alcohol or drug abuse patient.[facility] HospitalIn the event this information is protected by the Federal Confidentiality of Alcohol and Drug Abuse Patient Records regulations: The Federal rules restrict any use of the information to criminally investigate or prosecute any alcohol or drug abuse patient.[facility] HospitalIn the event this information is protected by the Federal Confidentiality of Alcohol and Drug Abuse Patient Records regulations: The Federal rules restrict any use of the information to criminally investigate or prosecute any alcohol or drug abuse patient.[facility] HospitalIn the event this information is protected by the Federal Confidentiality of Alcohol and Drug Abuse Patient Records regulations: The Federal rules restrict any use of the information to criminally investigate or prosecute any alcohol or drug abuse patient.[facility] HospitalIn the event this information is protected by the Federal Confidentiality of Alcohol and Drug Abuse Patient Records regulations: The Federal rules restrict any use of the information to criminally investigate or prosecute any alcohol or drug abuse patient.[facility] HospitalIn the event this information is protected by the Federal Confidentiality of Alcohol and Drug Abuse Patient Records regulations: The Federal rules restrict any use of the information to criminally investigate or prosecute any alcohol or drug abuse patient.[facility] HospitalIn the event this information is protected by the Federal Confidentiality of Alcohol and Drug Abuse Patient Records regulations: The Federal rules restrict any use of the information to criminally investigate or prosecute any alcohol or drug abuse patient.[facility] HospitalIn the event this information is protected by the Federal Confidentiality of Alcohol and Drug Abuse Patient Records regulations: The Federal rules restrict any use of the information to criminally investigate or prosecute any alcohol or drug abuse patient.[facility] HospitalIn the event this information is protected by the Federal Confidentiality of Alcohol and Drug Abuse Patient Records regulations: The Federal rules restrict any use of the information to criminally investigate or prosecute any alcohol or drug abuse patient.[facility] HospitalIn the event this information is protected by the Federal Confidentiality of Alcohol and Drug Abuse Patient Records regulations: The Federal rules restrict any use of the information to criminally investigate or prosecute any alcohol or drug abuse patient.[facility] Reason for Visit (unrecogniz ed section and content) Reason Comments Patient Question Orders Reason Comments Pain left big toe painful and red x 2 days Reason Comments Podiatry Referral Reason Comments New Patient Ingrown Toenail Specialty Diagnoses / Procedures Referred By Lam t Referred To Contact Podiatry Diagnoses Ingrown toenail Procedures CONSULT TO PODIATRY OFFICE/OUTPATIENT [facility] MDM 60-74 MINUTES Tessy Fields MD [address] [place] [address] Referral ID Status Reason Start Date Expiration Date V isits Requested Visits Authorized [id number] Closed PCP Requested Referral 12/14/2021 12/14/2022 1 1 Reason Comments Results Reason Comments Follow Up Ingrown Toenail Reason Onset Date Comments Refill Request 01/19/2022 Reason Comments Refill Request Reason Comments Patient Question Toe nail Reason Comments Recheck 6 month follow up Reason Comments Recheck 4 week follow up Reason Comments Appointment Reason Comments Covid Positive Reason Comments Recheck Follow up Reason Comments 6 mo follow up Reason Comments Orders Reason Comments Consult Specialty Diagnoses / Procedures Referred By Lam t Referred To Contact Gerontology Diagnoses Memory impairment Procedures CONSULT TO GERIATRICS OFFICE/OUTPATIENT [facility] MDM 60 MINUTES Radha Morales APRN.CNP [address] [place] [address] Referral ID Status Reason Start Date Expiration Date V isits Requested Visits Authorized [id number] Closed PCP Requested Referral 03/03/2024 03/03/2025 1 1 Reason Onset Date Comments Refill Request 03/21/2024 Reason Comments Radiology MRI Specialty Diagnoses / Procedures Referred By Lam t Referred To Contact MR IMAGING Diagnoses Cognitive impairment, mild, so stated Procedures MRI BRAIN W QUANT WO IVCON MRI BRAIN BRAIN STEM W/O CONTRAST MATERIAL Tessy Fields MD [address] [place] [address] [place] [address] Referral ID Status Reason Start Date Expiration Date V isits Requested Visits Authorized [id number] Closed Auto-Generate d Referral 03/19/2024 04/18/2025 1 1 Reason Comments Recheck Geriatric follow up Reason Comments Follow Up 03/19/24 MOCA complet ed, 04/17/24 SEBASTIAN Reason Onset Date Comments Refill Request 07/31/2024 Reason Onset Date Comments Results 08/21/2024 Reason Comments Medication Problem Reason Comments Recheck BP follow up Reason Comments Follow Up Reason Onset Date Comments Refill Request 12/22/2024 Reason Onset Date Comments Population Health Navigation Outreach 01/01/2025 Barb/Workbench/ACO Reason Onset Date Comments Results 11/21/2024 Reason Comments OT Discharge OT EVAL Specialty Diagnoses / Procedures Referred By Contac t Referred To Contact Occupational Therapy / OCCUPATIONAL THERAPY Diagnoses 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) Procedures OCCUPATIONAL THERAPY EVAL HIGH COMPLEX 60 MINS Tessy Fields MD [address] [place] [address] Phone: tel: fax: Abby Damon OT/L Referral ID Status Reason Start Date Expiration Date Visits Requested Visits Authorized [id number] Authorized PCP Requested Referral Auto-Generate d Referral 06/11/2024 06/10/2025 99 99 Care Teams (unrecognized sec tion and content) Engineer Fishing Vessel Relationship Specialty Start Date End Date Tessy Fields MD [address] [place] [address] PCP - General Internal Medicine 01/17/21 Engineer Fishing Vessel Relationship Specialty Start Date End Date Tessy Fields MD [address] [place] [address] PCP - General Internal Medicine 01/17/21 Engineer Fishing Vessel Relationship Specialty Start Date End Date Tessy Fields MD [address] [place] [address] PCP - General Internal Medicine 01/17/21 Engineer Fishing Vessel Relationship Specialty Start Date End Date Tessy Fields MD [address] [place] [address] PCP - General Internal Medicine 01/17/21 Engineer Fishing Vessel Relationship Specialty Start Date End Date Tessy Fields MD [address] [place] [address] PCP - General Internal Medicine 01/17/21 Engineer Fishing Vessel Relationship Specialty Start Date End Date Tessy Fields MD [address] [place] [address] PCP - General Internal Medicine 01/17/21 Engineer Fishing Vessel Relationship Specialty Start Date End Date Tessy Fields MD [address] [place] [address] PCP - General Internal Medicine 01/17/21 Engineer Fishing Vessel Relationship Specialty Start Date End Date Tessy Fields MD [address] [place] [address] PCP - General Internal Medicine 01/17/21 Engineer Fishing Vessel Relationship Specialty Start Date End Date Tessy Fields MD [address] [place] [address] PCP - General Internal Medicine 01/17/21 Engineer Fishing Vessel Relationship Specialty Start Date End Date Tessy Fields MD [address] [place] [address] PCP - General Internal Medicine 01/17/21 Engineer Fishing Vessel Relationship Specialty Start Date End Date Tessy Fields MD [address] [place] [address] PCP - General Internal Medicine 01/17/21 Engineer Fishing Vessel Relationship Specialty Start Date End Date Tessy Fields MD [address] [place] [address] PCP - General Internal Medicine 01/17/21 Engineer Fishing Vessel Relationship Specialty Start Date End Date Tessy Fields MD [address] [place] [address] PCP - General Internal Medicine 01/17/21 Engineer Fishing Vessel Relationship Specialty Start Date End Date Tessy Fields MD [address] [place] [address] PCP - General Internal Medicine 01/17/21 Engineer Fishing Vessel Relationship Specialty Start Date End Date Tessy Fields MD [address] [place] [address] PCP - General Internal Medicine 01/17/21 Engineer Fishing Vessel Relationship Specialty Start Date End Date Tessy Fields MD [address] [place] [address] PCP - General Internal Medicine 01/17/21 Engineer Fishing Vessel Relationship Specialty Start Date End Date Tessy Fields MD [address] [place] [address] PCP - General Internal Medicine 01/17/21 Engineer Fishing Vessel Relationship Specialty Start Date End Date Tessy Fields MD [address] [place] [address] PCP - General Internal Medicine 01/17/21 Engineer Fishing Vessel Relationship Specialty Start Date End Date Tessy Fields MD [address] [place] [address] PCP - General Internal Medicine 01/17/21 Engineer Fishing Vessel Relationship Specialty Start Date End Date Tessy iFelds MD [address] [place] [address] PCP - General Internal Medicine 01/17/21 Engineer Fishing Vessel Relationship Specialty Start Date End Date Tessy Fields MD [address] [place] [address] PCP - General Internal Medicine 01/17/21 Engineer Fishing Vessel Relationship Specialty Start Date End Date Tessy Fields MD [address] [place] [address] PCP - General Internal Medicine 01/17/21 Engineer Fishing Vessel Relationship Specialty Start Date End Date Tessy Fields MD [address] [place] [address] PCP - General Internal Medicine 01/17/21 Engineer Fishing Vessel Relationship Specialty Start Date End Date Tessy Fields MD [address] [place] [address] PCP - General Internal Medicine 01/17/21 Engineer Fishing Vessel Relationship Specialty Start Date End Date Tessy Fields MD [address] [place] [address] PCP - General Internal Medicine 01/17/21 Engineer Fishing Vessel Relationship Specialty Start Date End Date Tessy Fields MD [address] [place] [address] PCP - General Internal Medicine 01/17/21 Analilia Lopez PA-C [address] [place] [address] [facility] 05/18/24 Radha Morales APRN.CNP [address] [place] [address] [facility] 05/18/24 Christine Young PA-C [address] [place] [address] [facility] 05/18/24 Engineer Fishing Vessel Relationship Specialty Start Date End Date Tessy Fields MD [address] [place] [address] PCP - General Internal Medicine 01/17/21 Analilia Lopez PA-C [address] [place] [address] [facility] Radha Morales APRN.[employer] [address] [place] [address] [facility] 05/18/24 Christine Young PA-C [address] [place] [address] [facility] 05/18/24 Engineer Fishing Vessel Relationship Specialty Start Date End Date Tessy Fields MD [address] [place] [address] PCP - General Internal Medicine 01/17/21 Analilia Lopez PA-C [address] [place] [address] [facility] 05/18/24 Radha Morales APRN.[employer] [address] [place] [address] [facility] 05/18/24 Christine Young PA-C [address] [place] [address] [facility] 05/18/24 Engineer Fishing Vessel Relationship Specialty Start Date End Date Tessy Fields MD [address] [place] [address] PCP - General Internal Medicine 01/17/21 Analilia Lopez PA-C [address] [place] [address] [facility] 05/18/24 Radha Morales APRN.[employer] [address] [place] [address] [facility] 05/18/24 Christine Young PA-C [address] [place] [address] [facility] 05/18/24 Engineer Fishing Vessel Relationship Specialty Start Date End Date Tessy Fields MD [address] [place] [address] PCP - General Internal Medicine 01/17/21 Analilia Lopez PA-C [address] [place] [address] [facility] 05/18/24 Radha Morales APRN.[employer] [address] [place] [address] [facility] 05/18/24 Christine Young PA-C [address] [place] [address] [facility] 05/18/24 Engineer Fishing Vessel Relationship Specialty Start Date End Date Tessy Fields MD [address] [place] [address] PCP - General Internal Medicine 01/17/21 Radha Morales APRN.[employer] [address] [place] [address] [facility] 05/18/24 Engineer Fishing Vessel Relationship Specialty Start Date End Date Tessy Fields MD [address] [place] [address] PCP - General Internal Medicine 01/17/21 Radha Morales APRN.[employer] [address] [place] [address] [facility] 05/18/24 Engineer Fishing Vessel Relationship Specialty Start Date End Date Tessy Fields MD [address] [place] [address] PCP - General Internal Medicine 01/17/21 Radha Morales, ELECTRO MECHANIC.[employer]ER [address] [place] [address] [facility] 05/18/24 Engineer Fishing Vessel Relationship Specialty Start Date End Date Tessy Fields MD [address] [place] [address] PCP - General Internal Medicine 01/17/21 Radha Morales, ELECTRO MECHANIC.[employer] [address] [place] [address] [facility] 05/18/24 Engineer Fishing Vessel Relationship Specialty Start Date End Date Tessy Fields MD [address] [place] [address] PCP - General Internal Medicine 01/17/21 Radha Morales ELECTRO MECHANIC.[employer]ER [address] [place] [address] [facility] 05/18/24 Engineer Fishing Vessel Relationship Specialty Start Date End Date Tessy Fields MD [address] [place] [address] PCP - General Internal Medicine 01/17/21 Radha Morales APRN.[employer]ER [address] [place] [address] [facility] Internal [facility] 05/18/24 Engineer Fishing Vessel Relationship Specialty Start Date End Date Tessy Fields MD [address] [place] [address] PCP - General Internal Medicine 01/17/21 Radha Morales APRN.[employer]ER [address] [place] [address] [facility] 05/18/24 FOR RECORDS PERTAINING TO PATIENTS WHO ARE OR HAVE BEEN ENROLLED IN A CHEMICAL DEPENDENCY/SUBSTANCEABUSE PROGRAM, SOME INFORMATION MAY BE OMITTED. This clinical summary was aggregated from multiple sources. Caution should be exercised in using it in the provision of clinical care. This summary normalizes information from multiple sources, and as a consequence, information in this document may materially change the coding, format and clinical context of patient data. In addition, data may be omitted in some cases. CLINICAL DECISIONS SHOULD BE BASED ON THE PRIMARY CLINICAL RECORDS. [employer] provides no warranty or guarantee of the accuracy or completeness of information in this document.
[2025-02-01 13:54] LABS: Prothrombin Time (Protime)PT. 12.8 SECONDS (11.7-14.9)
[2025-02-01 13:55] LABS: Partial Thromboplast Time 25.4 Seconds (24.1-36.2)
[2025-02-01 15:45] LABS: Troponin T High Sens 2 HR 16 ng/L (<=22)
[2025-02-01 17:14] LABS: D-Dimer Quantitative (DVT/PE) 0.27 FEU/ug/m (0.27-0.49)
[2025-02-01] MEDS: APIXABAN 5 MG TABLET PO (18:25)
== END 2025-02-01 18:36 | disposition home or self-care (01) ==
PROVIDERS: Emergency Provider Emergency Medicine; PCP Internal Medicine; Visit Provider Emergency Medicine
DX: I48.91 Unspecified atrial fibrillation (principal); G30.9 Alzheimer's disease, unspecified; F02.80 Dementia in other diseases classified elsewhere, unspecified severity, without behavioral disturbance, psychotic disturbance, mood disturbance, and anxiety; I10 Essential (primary) hypertension; Z79.899 Other long term (current) drug therapy; Z79.01 Long term (current) use of anticoagulants
CPT/HCPCS: 71046; 80048; 83735; 83880; 84439; 84443; 84481; 84484; 85025; 85379; 85610; 85730; 93005; 96360; 96361; 99285; A4216

== ENCOUNTER → 2025-03-18 | Outpatient (CLI) | payer MEDICARE, OTHER, SELFPAY ==
--- NOTE | 2025-03-18 14:29 | ECHOCS_ITS ---
Reason For Study Reason For Study: Dyspnea/SOB Procedure This was a 2D Doppler, Color Flow transthoracic echocardiogram. Contrast injection was performed. Exam performed in department. Left Ventricle Normal LV size. The left ventricular ejection fraction is 50 %. No regional wall motion abnormalities noted. Right Ventricle Normal RV size. Normal systolic function. Atria The left atrium is mildly enlarged. Normal right atrium. Mitral Valve Normal mitral valve. Tricuspid Valve Normal tricuspid valve. Mild (1+) tricuspid valve insufficiency. Pulmonary artery systolic pressure is 25 mmHg. Aortic Valve Trisinus/trileaflet aortic valve. Pulmonic Valve The pulmonic valve is not well visualized. Great Vessels Normal aortic root. The pulmonary artery is normal size. Inferior vena cava collapse with respiration. Pericardium/Pleural No pericardial effusion. Medication 22 gauge I.V. with prn adaptor inserted into left arm. Diluted definity 1ml given slow IV push to enhance endocardial definition. MMode/2D Measurements & Calculations LVIDd: 4.5 cm IVSd: 0.99 cm Ao root diam: 3.4 cm LVIDs: 3.5 cm LVPWd: 1.0 cm RVDd: 3.9 cm FS: 23.4 % LAV(MOD-bp): 72.8 ml LVAd ap4: 33.4 cm2 SV(MOD-sp4): 56.3 ml LAV(MOD-bp) Indexed: 36.1 ml/m2 LVLd ap4: 8.2 cm SI(MOD-sp4): 27.9 ml/m2 LAV(MOD-sp2): 79.9 ml EDV(MOD-sp4): 109.4 ml LAV(MOD-sp4): 61.6 ml EDV(sp4-el): 115.0 ml LVAs ap4: 21.3 cm2 LVLs ap4: 6.9 cm ESV(MOD-sp4): 53.1 ml ESV(sp4-el): 55.7 ml EF(MOD-sp4): 51.5 % EF(sp4-el): 51.6 % SV(sp4-el): 59.3 ml LA A4 area: 22.2 cm2 LA dimension(2D): 4.1 cm RA A4 area: 16.6 cm2 TAPSE: 1.3 cm Doppler Measurements & Calculations MV E max jyothi: 88.1 cm/sec MV V2 max: 92.7 cm/sec Ao V2 max: 95.5 cm/sec MV max P.4 mmHg Ao max P.7 mmHg MV V2 mean: 49.8 cm/sec Ao V2 mean: 67.8 cm/sec MV mean P.2 mmHg Ao mean P.1 mmHg MV V2 VTI: 25.4 cm Ao V2 VTI: 20.7 cm AV (velocity ratio): 0.82 LV V1 max: 75.7 cm/sec PA V2 max: 80.3 cm/sec TR max jyothi: 234.8 cm/sec LV V1 max P.3 mmHg PA V2 mean: 58.3 cm/sec TR max P.2 mmHg LV V1 mean P.2 mmHg LV V1 mean: 51.2 cm/sec LV V1 VTI: 16.9 cm ECHO/Echo Complete W/ Contrast Interpretation Summary Normal LV size. The left ventricular ejection fraction is 50 %. The left atrium is mildly enlarged. Pulmonary artery systolic pressure is 25 mmHg. Contrast injection was performed. Ordering Physician: Uvaldo Flores Referring Physician: Uvaldo Flores Performed By: Mario Kinney RCS
== END | disposition home or self-care (01) ==
LOC: CVS 14:27
PROVIDERS: PCP Internal Medicine; Referring Provider Internal Medicine Cardiovascular Disease; Visit Provider Internal Medicine Cardiovascular Disease
DX: R06.09 Other forms of dyspnea (principal); I48.19 Other persistent atrial fibrillation
CPT/HCPCS: 93306; Q9957; A4216; C8929